=== PATIENT | female | born 1945 | race Caucasian/White ===

== ENCOUNTER 2024-11-19 09:21 | Outpatient (AMB) | payer MEDICARE, SELFPAY ==
[2024-11-19 09:30] VITALS: BP 130/52; PULSE 119; O2SAT 95; BMI 20.2
--- NOTE | 2024-11-19 09:30 | MHC.OFFVIS ---
Vital Signs 11/19/24 09:30 Height 5 ft 1 in Weight 106 lb 14.787 oz BMI 20.2 BP 130/52 L Blood Pressure Location Lt brachial Position Sitting Pulse 119 H Pulse Source Pulse Oximeter Pulse Oximetry (%) 95 Oxygen Delivery Method Room Air Intake Visit Reasons: Cough Intake Note: chronic cough since summer. 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 Allergies ANTIBIOTICS Adverse Reaction (Mild, Uncoded 11/19/24 09:36) THRUSH Medication List - Last Reconciled 11/19/24 by Jem Perrin MD acetaminophen (Tylenol Extra Strength) 500 mg PO Q6H PRN acyclovir 400 mg PO BID albuterol sulfate 90 mcg/actuation 2 puffs inhalation Q6H PRN amiloride-hydrochlorothiazide 5-50 mg 1 tab PO DAILY calcium carbonate-vitamin D3 600 mg-10 mcg (400 unit) (Calcium 600 with Vitamin D3) tabs PO clopidogrel (Plavix) 75 mg PO DAILY cyanocobalamin (vitamin B-12) 1,000 mcg PO DAILY denosumab (Prolia) 60 mg subcut [id number] diclofenac sodium 1% (Arthritis Pain (diclofenac)) 2 grams topical QID estradiol 0.01%(0.1mg/gram) vaginal fluticasone propionate 50 mcg/actuation 1 spray intranasal BID indapamide 1.25 mg PO QAM meclizine 12.5 mg PO BID-QID PRN pantoprazole 40 mg PO DAILY pravastatin 10 mg PO BEDTIME vedolizumab (Entyvio) 300 mg IV Q6W Do you need a note to return to daycare/school/sports/work: No HPI HPI Cough: Details: This 79 years old female of a thin build, is here today for the 1st time, with chief complaint of ongoing cough since the summer months of 2023. She gives history of postnasal discharge/drip almost on a daily basis for the past many years. She does not have runny nose but mostly is in the form of postnasal discharge. She does have occasional bouts of headache, but denies any periods of pain or discomfort over the maxillary areas. She started having cough in the summer of 2023, most likely in May, and started coughing up yellowish phlegm. She was seen in an urgent care clinic 1 time and also had to go to the emergency room in May or June of last. She was treated with, courses of antibiotics, including Z-Zoltan, Augmentin, and also doxycycline, without much improvement She was started on Breo inhaler and also albuterol . With the use of Breo she developed to oral ulcers and thus Breo was stopped. With the use of albuterol she gets actually more cough but it makes it easy to expectorate some phlegm. For happy attention she was being treated with atenolol, later on changed to carvedilol , along with amiloride-high row chlorthalidone. When carvedilol was decreased to half tablet b.i.d., she states that her cough did improve by about 50%, but it never went away. She has been using Flonase nasal spray, without any benefit. Patient has not been on any Gavin inhibitor . Patient does have longstanding history of GERD symptoms, but it remains well controlled with use of pantoprazole 40 mg daily. Patient has had no history of exposure to any one with TB. She is nonsmoker But she does have history of exposure to secondhand smoking from her father. Her cough is almost on a daily basis and sometimes wakes her up from the sleep, With the use of albuterol it is slightly decreased and also it makes it easy for her to expectorates. [facility] Medical History Sinusitis Cough Social History Patient Tobacco Use Status: Never used Tobacco Review of Systems Const All systems reviewed & are unremarkable except as noted in HPI and below Eyes Reports no additional complaints ENT Reports nasal discharge (CHRONIC ) Card Denies chest pain, Reports rapid heart rate and Denies leg edema Resp Reports as per HPI GI Reports heartburn (CHRONIC GERD SYMPTOMS) Reports no additional complaints Musc Reports no additional complaints Skin/Breast Reports system reviewed and no additional complaints, except as documented Neuro Reports no additional complaints Psych Reports no additional complaints Endo Reports no additional complaints Jerry/Lymph Reports no additional complaints Physical Exam Vital Signs: Last Vital Signs Pulse 119 H 11/19/24 09:30 BP 130/52 L 11/19/24 09:30 Pulse Ox 95 11/19/24 09:30 Oxygen Delivery Method Room Air 11/19/24 09:30 BMI result Body Mass Index 20.2 Const Other: PATIENT IS OF A THIN BUILD OTHERWISE HEALTHY LOOKING. HAD CONTINUED AND FREQUENT BOUTS OF COUGH DURING OFFICE VISIT. General: healthy appearing, comfortable, no acute distress, alert and awake Orientation/consciousness: patient oriented x3 HEENT Head: Yes normal to inspection General nose exam: No nasal polyps present and No nasal discharge present Face and sinus: Yes sinuses nontender Mouth: oropharynx normal Throat: Yes posterior oropharynx normal Eyes General: appearance normal, both eyes and all related structures Neck Neck: Yes normal visual inspection, Yes no lymphadenopathy, Yes trachea midline and Yes no JVD Thyroid: Thyroid normal Chest Chest palpation & inspection: normal inspection of the chest, normal palpation of entire chest wall and no tenderness Resp Other: PERCUSSION NOTE IS RESONANT. BREATH SOUNDS ARE ONLY SLIGHTLY DISTANT BUT. EQUAL ON BOTH SIDES THERE WERE NO CREPITATIONS OR WHEEZES. A FEW INSPIRATORY RHONCHI OVER THE LEFT BASE WERE HEARD. DURING AUSCULTATION SHE CONTINUE TO HAVE FREQUENT COUGH. Cardio Palpation: normal PMI Rate: regular rate Rhythm: regular rhythm Heart sounds: no gallops and no murmurs Peripheral pulses: Peripheral pulses 2+ throughout GI Palpation (GI): Soft to palpation, nontender, No hepatosplenomegaly present and no masses Auscultation: normal bowel sounds Back/Spine/Pelvis Thoracic/Lumbar Spine: thoracic and lumbar spine normal to inspection Skin General skin exam: no rashes or lesions noted Neuro General: patient oriented x3 and no focal motor deficits Cranial nerves: Yes CN's II-XII intact bilaterally Extrem General: Yes normal to inspection, Yes no clubbing, cyanosis or edema and Yes no calf tenderness Psych Appearance: grossly normal and well kempt Speech and movement: Normal speech and movement present Results Reviewed Results Reviewed: CT SCAN OF THE CHEST 10/18/2024 AT [facility]. Shows scattered bilateral calcified granulomas measuring up to 3 mm in the left upper lobe and increased 6 mm sub pleural nodule in the lateral aspect of left lung base. A new 6 mm subpleural nodule in the lingular segment of the left upper lobe. Bibasilar atelectasis, minimal. No evidence of pulmonary emphysema, bronchiectasis or pulmonary fibrosis. PULMONARY FUNCTION TEST AT [facility], 11/13/2024 There was no evidence of obstructive airway disorder. And no evidence of restrictive lung disorder. DLCO slightly decreased but almost normal when adjusted for hemoglobin 11.1 Assessment & Plan Assessment & Plan (1) Cough: Comment: Her cough has become chronic, may have been aggravated due to nonspecific infection back in summer of 2023. All possible etiologic factors were considered and ruled out except: Chronic postnasal discharge, and possible low-grade chronic sinusitis. 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 As per CT scan of the chest there is no evidence of any chronic intrinsic lung disease. Code(s): R05.9 - Cough, unspecified Category: Medical Plan: Had a good discussion with patient and explained to her all these factors. At this point I would like to do : COMPLETE CBC WITH DIFF. SPOT TEST FOR LATENT TUBERCULOSIS ( this is mainly because patient has a question about that) Sputum Gram stain and culture. FOR TREATMENT : MAY CONTINUE TO USE ALBUTEROL 1 OR 2 PUFFS Q 6 HOURS P.R.N. FOR PERSISTENT BOUTS OF COUGH. AFTER THE SPUTUM GRAM STAIN AND CULTURE SPECIMEN IS OBTAINED I WOULD START HER ON DOXYCYCLINE 100 B.I.D. FOR ABOUT 2 WEEKS . SHE MAY USE MUCINEX OR ROBITUSSIN 400 MG B.I.D. ( OTC ) (2) Sinusitis: Comment: CLINICALLY PATIENT DENIES ANY SINUS PAIN OR DISCOMFORT, THE PATTERN OF HER ONGOING POSTNASAL DISCHARGE AND FREQUENT COUGH WITH EXPECTORATION, SUGGEST THAT SHE MAY HAVE CHRONIC LOW-GRADE SINUSITIS. Code(s): J32.9 - Chronic sinusitis, unspecified Category: Medical Plan: X-RAY OF THE SINUSES ORDERED. NOTED ABOVE I WOULD START HER ON DOXYCYCLINE 100 B.I.D. FOR ABOUT 2 WEEKS, EMPIRICALLY. Orders: Orders XR sinus <3V Today J32.9 - Chronic sinusitis, unspecified, R05.9 - Cough, unspecified T Spot TB Today J32.9 - Chronic sinusitis, unspecified, R05.9 - Cough, unspecified Complete Blood Count Auto Diff Today J32.9 - Chronic sinusitis, unspecified, R05.9 - Cough, unspecified Sputum Cult + Gram stain Today J32.9 - Chronic sinusitis, unspecified, R05.9 - Cough, unspecified Coding Level of Care Code New Pt Level 4 (79493) Diagnoses Cough R05.9 Sinusitis J32.9
--- OUTSIDE RECORDS SUMMARY | 2024-11-19 09:46 | XMS_ITS | Continuity of Care Document ---
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 Name Role Phone Anaya Joanna DEL TORO Primary Care Physician Encounter [facility] ACCT R [id number] Date(s): 09/19/24 - 10/19/24 [facility] Adult [address] [place] [address]- Encounter Type: Triage Allergies, Adverse Reactions, Alerts Substance Criticality Severity Reaction Reaction Severity Status clonidine Shaking Active penicillin Thrush Active nortriptyline bad dreams Activ e Remicade hands swollen, painful, tinging Active Fosamax Ineffective tuyet g action Active metoprolol Resolved spironolactone diarrhea Activ e trazodone Unknown body region Active lisinopril Unknown body region Active losartan dizzy Active topiramate Unknown body region Active Remeron Dizzy Active Duloxetine 1 Unknown body region Active traMADol Unknown body region Active 1dizziness Immunizations Given and Recorded Vaccine Date Status Refusal Reason influenza virus vaccine, inactivated 09/09/24 Angel Luis rded influenza virus vaccine, inactivated 1 07/07/23 Gi clyde influenza virus vaccine, inactivated 08/01/22 Angel Luis rded influenza virus vaccine, inactivated 07/30/21 Angel Luis rded influenza virus vaccine, inactivated 07/12/18 Give n influenza virus vaccine, inactivated 2 07/04/17 Re corded influenza virus vaccine, inactivated 08/20/16 Give n influenza virus vaccine, inactivated 07/24/15 Give n influenza virus vaccine, inactivated 3/9/15 Give n influenza virus vaccine, inactivated 08/15/14 Angel Luis rded influenza virus vaccine, inactivated 3 07/10/14 Gi clyde influenza virus vaccine, inactivated 07/09/13 Give n influenza virus vaccine, inactivated 06/25/11 Give n SARS-CoV-2(COVID-19)mRNA-LNP vac([id number]) 09/09/24 Recorded SARS-CoV-2(COVID-19)mRNA-LNP vac([id number]) 09/21/23 Recorded pneumococcal 20-valent conjugate vaccine 4 05/06/23 Given tetanus/diphtheria/pertussis, acel(Tdap) 12/12/22 Given [id number] 12y+ bivalent booster vax 08/01/22 Recorded SARS-CoV-2 mRNA ([id number]) vax 03/09/22 Recorded SARS-CoV-2 (COVID-19) mRNA BNT-162b2 vac 07/16/21 Recorded SARS-CoV-2 (COVID-19) mRNA BNT-162b2 vac 12/15/20 Given SARS-CoV-2 (COVID-19) mRNA BNT-162b2 vac 12/15/20 Recorded SARS-CoV-2 (COVID-19) mRNA BNT-162b2 vac 11/24/20 Recorded Influenza Virus Vaccine (oldterm) 06/19/20 Recorde d zoster vaccine, inactivated 02/22/19 Recorded zoster vaccine, inactivated 5 10/19/18 Recorded hepatitis B adult vaccine 04/26/17 Given hepatitis B adult vaccine 04/26/17 Given hepatitis B adult vaccine 12/07/16 Given hepatitis B adult vaccine 6 11/04/16 Given hepatitis B adult vaccine 7 11/04/16 Given hepatitis B adult vaccine 09/21/16 Given hepatitis B adult vaccine 04/21/16 Given hepatitis B adult vaccine 03/24/16 Given Hepatitis A Adult Vaccine 09/21/16 Given Hepatitis A Adult Vaccine 03/24/16 Given pneumococcal 13-valent vaccine 8 12/23/14 Recorded Zostavax (oldterm) 9 07/16/13 Given Tet/Diphth/Acel, Pertussis (oldterm) 04/30/13 Give n Fluarix (oldterm) 08/02/12 Given FluLaval (oldterm) 10 08/17/10 Given Influenza Inactive (IM) (oldterm) 07/01/09 Given Influenza Inactive (IM) (oldterm) 08/27/08 Given Pneumococcal Vaccine (oldterm) 05/25/07 Given tetanus-diphtheria toxoids (Td) 11 02/14/07 Given Tetanus Toxoid Vaccine (oldterm) 10/17/96 Given 1Result Comment: [id number] 2Result Comment: [07/11/2017] makenna leahy 3Result Comment: [07/11/2014] [facility] 4Result Comment: [id number] 5Location History: [address] [phone] 6Result Comment: [11/04/2016] DOUBLE DOSE PER GI 7Result Comment: [11/04/2016] DOUBLE DOSE PER GI 8Result Comment: [03/07/2015] received here 9Admin Note: [facility] 9- 10Admin Note: pt states administered at [facility] 11Admin Note: historical data Medications acetaminophen 325 mg oral capsule 2 capsule = 650 mg, By Mouth, 3 times a day, # 90 capsule, 4 Refills, Maintenance, 01/02/20 1:39:00 PM EDT, [facility], 157.48, cm, 12/17/19 13:10:00 EST, Height, 53.5, kg, 02/02/19 14:21:00 EDT, Dry Weight Start Date: 01/02/20 Status: Ordered Quantity: 90.0 Unit: capsule Repeat number: 5 Acyclovir 400 mg, By Mouth, 2 times a day, Maintenance, 03/04/21 1:16:00 PM EDT Start Date: 03/04/21 Status: Ordered Repeat number: 1 aMILoride 5 mg oral tablet 1 tablet, By Mouth, Daily, # 90 tablet, 1 Refills, Maintenance, 09/19/24 2:44:00 PM EST, [facility], 155, cm, 07/23/24 10:04:00 EDT, Height, 49.7, kg, 08/11/24 12:45:00 EDT, Dry Weight Start Date: 09/19/24 Status: Ordered Quantity: 90.0 Unit: tablet Repeat number: 2 Breo Ellipta 100 mcg-25 mcg/inh inhalation powder 1 inhalation, Inhalation, Daily, for 30 days, at the same time every day, # 1 each, 0 Refills, Acute 10/31/24 10:42:00 AM EST, 10/01/24 10:42:00 AM EST, Powder, [id number], =, 1 inhalation Inhalation Daily,x30 days,Instr:at the same time every day, 155, cm, 10/01/24 10:44:00 EST, Height, 50.1, kg, 09/22/24 12:51:00 EST, Dry Weight Start Date: 10/01/24 Stop Date: 10/31/24 Status: Ordered Quantity: 1.0 Unit: each Repeat number: 1 Calcium / Vitamin D Combo Tablet 1 tablet, By Mouth, 2 times a day, 0 Refills, 12/13/05 2:17:58 PM EST Start Date: 12/13/05 Status: Ordered Repeat number: 1 carvedilol 12.5 mg oral tablet 12.5 mg, 1, tablet, By Mouth, 2 times a day, # 180 tablet, Refills 0, Tot. Refills 0, Maintenance, 10/05/24 12:21:00 PM EST, Route to Pharmacy Electronically, [facility], Partial fill upon patient request if the prescription is for a schedule II opioid drug., 155, cm, 10/01/24 10:44:00 EST, Height, 50.1, kg, 09/22/24 12:51:00 EST, Dry Weight Start Date: 10/05/24 Status: Ordered Quantity: 180.0 Unit: tablet Repeat number: 1 [facility] By Mouth, Daily, 0 Refills, Maintenance, 06/15/24 2:14:00 PM EDT, Partial fill upon patient request if the prescription is for a schedule II opioid drug. Start Date: 06/15/24 Status: Ordered Repeat number: 1 clopidogrel 75 mg oral tablet 1, tablet, By Mouth, Daily, # 90 tablet, Refills 0, Tot. Refills 0, Maintenance, 10/15/24 5:37:00 PM EST, Route to Pharmacy Electronically, [facility], 155, cm, 10/09/24 10:20:00 EST, Height, 50.1, kg, 09/22/24 12:51:00 EST, Dry Weight Start Date: 10/15/24 Status: Ordered Quantity: 90.0 Unit: tablet Repeat number: 1 diclofenac 1% topical gel 1 application, Topically, 4 times a day, PRN Pain , Mild, not to exceed 8 grams/day/single joint ofupper extremities, # 100 Gm, 0 Refills, Maintenance, 12/31/21 11:50:00 AM EDT, Gel, [facility], Partial fill upon patient request if the prescription is for a schedule II opioid drug., 155, cm, 12/31/21 10:53:00 EDT, Height, 42, kg, 09/03/21 12:56:00 EST, Dry Weight Start Date: 12/31/21 Status: Ordered Quantity: 100.0 Unit: g Repeat number: 1 Entyvio = 300 mg, IV Infusion, Every 6 weeks, 0 Refills, Maintenance, 01/09/18 11:14:40 AM EDT Start Date: 01/09/18 Status: Ordered Repeat number: 1 estradiol 0.1 mg/g vaginal cream = 1 Gm, Vaginally, Daily at bedtime, take every night for two weeks then twice weekly, # 42.5 Gm, 11 Refills, Maintenance, 11/29/23 12:24:00 PM EST, [facility], Partial fill upon patient request if the prescription is for a schedule II opioid drug., 155, cm, 11/18/23 10:45:00 EST, Height, 53.7, kg, 10/22/23 13:12:00 EST, Dry Weight Start Date: 11/29/23 Status: Ordered Quantity: 42.5 Unit: g Repeat number: 12 Flonase Allergy Relief 50 mcg/inh nasal spray 1 sprays = 50 mcg, Nares, Both, 2 times a day, shake well before using, # 16 Gm, 1 Refills, Maintenance, 10/01/24 10:38:00 AM EST, [place], [id number], 155, cm, 10/01/24 10:24:00 EST, Height, 50.1, kg, 09/22/24 12:51:00 EST, Dry Weight Start Date: 10/01/24 Stop Date: 11/30/24 Status: Ordered Quantity: 16.0 Unit: g Repeat number: 2 Imodium A-D 2 mg oral tablet 1 tablet = 2 mg, By Mouth, Every 4 hours, PRN Diarrhea, 0 Refills, Maintenance, 12/31/15 1:03:36 PM EDT Start Date: 12/31/15 Status: Ordered Repeat number: 1 indapamide 1.25 mg oral tablet 1 tablet, By Mouth, Daily in AM, # 90 tablet, 0 Refills, Maintenance, 10/01/24 8:50:00 AM EST, [facility], 155, cm, 07/23/24 10:04:00 EDT, Height, 50.1, kg, 09/22/24 12:51:00 EST, Dry Weight Start Date: 10/01/24 Status: Ordered Quantity: 90.0 Unit: tablet Repeat number: 1 pantoprazole 40 mg oral delayed release tablet 1 tablet = 40 mg, By Mouth, Daily, # 90 tablet, 3 Refills, Maintenance, 01/18/24 2:10:00 PM EDT, 155,cm, 01/18/24 13:30:00 EDT, Height, 52.8, kg, 01/14/24 12:56:00 EDT, Dry Weight Start Date: 01/18/24 Stop Date: 01/12/25 Status: Ordered Quantity: 90.0 Unit: tablet Repeat number: 4 pravastatin 10 mg oral tablet 1 tablet, By Mouth, Daily at bedtime, # 90 tablet, 1 Refills, Maintenance, 08/12/24 12:25:00 PM EDT, [facility], 155, cm, 07/23/24 10:04:00 EDT, Height, 49.7, kg, 08/11/24 12:45:00 EDT, Dry Weight Start Date: 08/12/24 Status: Ordered Quantity: 90.0 Unit: tablet Repeat number: 1 prednisolone ophthalmic acetate 1% suspension 1 drops, Eyes, Both, Daily, # 5 mL, 0 Refills, Maintenance, 08/17/21 2:36:00 PM EDT, Ophth Suspension, Partial fill upon patient request if the prescription is for a schedule II opioid drug. Start Date: 08/17/21 Stop Date: 08/27/21 Status: Ordered Quantity: 5.0 Unit: mL Repeat number: 1 Prolia 60 mg/mL subcutaneous solution 1 mL = 60 mg, Subcutaneous Injection, Every 6 months, # 1 mL, 0 Refills, Maintenance, 10/23/19 1:28:00 PM EST, Solution Start Date: 10/23/19 Status: Ordered Quantity: 1.0 Unit: mL Repeat number: 1 Vitamin B12 1000 mcg oral tablet 1 tablet = 1,000 mcg, By Mouth, Daily, # 90 tablet, 1 Refills, Maintenance, 02/29/24 12:41:00 PM EDT, [facility], 155, cm, 02/25/24 14:25:00 EDT, Height, 53.7, kg, 02/25/24 12:50:00 EDT, Dry Weight Start Date: 02/29/24 Stop Date: 08/27/24 Status: Ordered Quantity: 90.0 Unit: tablet Repeat number: 2 Problem List Condition Confirmation Course Effective Dates Status H ealth Status Informant Dry mouth 1 Confirmed Active Atrophic vaginitis Confirmed Active Benign esophageal stricture Confirmed 03/25/18 Active Benign Essential Hypertension Confirmed Active Bilateral hearing loss Confirmed 07/08/21 Active CTS (carpal tunnel syndrome) Confirmed Active 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;multilevel Confirmed 03/17/19 Active Occipital neuralgia Confirmed Active Chronic renal impairment, stage 3 (moderate) Confirmed Active Crohn's disease of colon Confirmed Active Female bladder prolapse Confirmed Active Eczema Confirmed Active Lymphocytic esophagitis egd 2019 Confirmed Active GERD without esophagitis EGD ;dilated Confirmed Active H/O compression fracture of spine- L4 Confirmed Active History of basal cell carcinoma (BCC) excision Confirmed Active Hx of amaurosis fugax 2, 3, 4, 5 Confirmed 07/12/08 Active Hyperlipidemia Confirmed Active Impaired Fasting Glucose 6 Confirmed Active Irritable bowel syndrome Confirmed Active Schatzki's ring dilated Confirmed 05/15/20 Active Microscopic Hematuria 7, 8 Confirmed Active Ocular migraine Confirmed Active OP (osteoporosis) denosumab +dexa 2019 9, 10, 11, 12, 13, 14 Confirmed Active Overactive bladder Confirmed Active Recurrent UTI (urinary tract infection) 15, 16 Confirmed Active Rosacea Confirmed Active Urethritis Confirmed Active Vertigo Confirmed Active 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/22 Active Vitamin B12 deficiency (non anemic) Confirmed Active 1per ENT;nystatin 2neg lupus anticoagulant/antiphopholipid and anticardiolipin antibodies 3Echocardiogram nad 4CT angio barin;done 5normal carotids; LDL 90, refuises MRI,mRA brain; I advised she cannot do 6ADVISED PRE DIABETIC 7seeing DR Tatum; cytology, ultrasound renal 8full workup 9recalst aug 2015 10per rheumatology FReclast 11Recheck parathyroid hormone level consider Prolia if PTH is normal 12Normal SPEP and thyroid 13refuses prolia,other RX aware risks 14seeing rhuematlogy re ,rx 15no testing,prn bactrim 16seeing DR Romero,evaluating Social History Social History Type Response Smoking Status Never smoker; Tobacc o user in household: Yes entered on: 08/21/14 Sex Female Sex Representation Female (finding) Patient Care team information Care Team Personnel Name: Celestina King RN Position: [facility] RN Member Role: Primary Care Nurse Name: Joanna Julien NP Position: [facility] PCO Associate Professional Member Role: PCP Address: [address] [place] [id number] Telecom: Name: Michelle Cline RN Position: [facility] MR W/ Merge Member Role: Primary Care Nurse Name: Susan Ventura RN Position: [facility] Onco RN Member Role: Primary Care Nurse Name: Lindsey Fletcher RN Position: [facility] RN Member Role: Primary Care Nurse Name: Lianet Mcfadden RN Position: [facility] AMB Nurse Member Role: Primary Care Nurse Name: Kenny Quinonez RN Position: [facility] RN Member Role: Primary Care Nurse Care Team Related Persons Name: SHAILESH DAMICO Name: CONCETTA PUENTES Name: RHEA PUENTES Insurance Providers Guarantor name: MAXIME PUENTES Health Plan Information #: 1 Payer: MEDICARE PART B OUTPT Member Number: NA Policy Number: NA Group Number: NA Health Plan Information #: 2 Payer: [employer] SUP Member Number: NA Policy Number: NA Group Number: NA
--- OUTSIDE RECORDS SUMMARY | 2024-11-19 09:46 | XMS_ITS | Continuity of Care Document ---
Author Organization [facility] Address [address] [place] [address]- [facility] Name Relationship Address Phone ENIO PUENTESINE Personal Relationship Unknown Yolis vailable DEPREY, SHAILESH child Unknown Unavailable DELORIS, RHEA child Unknown Unavailable DELORIS, CONCETTA Personal Relationship Unknown Unav ailable DELORIS, MAXIME Personal Relationship Unknown Yolis vailable DELORIS, MAXIME Personal Relationship Unknown Yolis vailable DELORIS, CONCETTA spouse Unknown Unavailable DELORIS, MAXIME Personal Relationship Unknown Yolis vailable Care Team Providers Care Fish Flipper Name Role Phone Anaya FUR TAILOR, Joanna Lafleur Primary Care Physician [place] [facility] [place] - 10/[place]/24 [facility] [address] [place] [address]- Encounter Type: Triage Allergies, Adverse Reactions, Alerts Substance Criticality Severity Reaction Reaction Severity Status clonidine Shaking Active Fosamax Ineffective tuyet g action Active Remeron Dizzy Active penicillin Thrush Active metoprolol Resolved nortriptyline bad dreams Activ e spironolactone diarrhea Activ e trazodone Unknown body region Active lisinopril Unknown body region Active losartan dizzy Active topiramate Unknown body region Active Remicade hands swollen, painful, tinging Active Duloxetine 1 Unknown body region Active [...] 07/24/15 Give n influenza virus vaccine, inactivated 12/23/14 Give n influenza virus vaccine, inactivated 08/15/14 Angel Luis rded influenza virus vaccine, inactivated 3 07/10/14 Gi clyde influenza virus vaccine, inactivated 07/09/13 Give n influenza virus vaccine, inactivated 06/25/11 Give n SARS-CoV-2(COVID-19)mRNA-LNP vac(xjl112) 09/09/24 Recorded SARS-CoV-2(COVID-19)mRNA-LNP vac(yoh184) 09/21/23 Recorded pneumococcal 20-valent conjugate vaccine 4 05/06/23 Given tetanus/diphtheria/pertussis, acel(Tdap) 12/12/22 Given [id number]-MkV-7mSTI 12y+ bivalent booster vax 08/01/22 Recorded SARS-CoV-2 mRNA (tcejsqk-mdwg-rtuon) vax 03/09/22 Recorded SARS-CoV-2 (COVID-19) mRNA BNT-162b2 [...] (oldterm) 07/01/09 Given Influenza Inactive (IM) (oldterm) 11/11/08 Given Pneumococcal Vaccine (oldterm) 05/25/07 Given tetanus-diphtheria toxoids (Td) 11 02/14/07 Given Tetanus Toxoid Vaccine (oldterm) 10/17/96 Given 1Result Comment: [id number] 2Result Comment: [07/11/2017] makenna leahy 3Result Comment: [07/11/2014] [facility] 4Result Comment: [id number] 5Location History: [address] [phone] 6Result Comment: [11/04/2016] DOUBLE DOSE PER GI 7Result Comment: [11/04/2016] DOUBLE DOSE PER GI 8Result Comment: [03/07/2015] received here 9Admin Note: IRIS-RFID 07-13-13 10Admin Note: pt states administered at sham 11Admin Note: historical data Medications acetaminophen 325 mg oral capsule 2 capsule = 650 mg, By Mouth, 3 times a day, # 90 capsule, 4 Refills, Maintenance, 01/02/20 1:39:00 PM EDT, [facility], 157.48, cm, 12/17/19 13:10:00 EST, [...] AM EST, 10/01/24 10:42:00 AM EST, [place], [facility][id number], =, 1 inhalation Inhalation Daily,x30 days,Instr:at the [...] 1 Refills, Maintenance, 10/01/24 10:38:00 AM EST, [place], [facility] #[id number], 155, cm, 10/01/24 10:24:00 EST, Height, 50.1, [...] Team Personnel Name: Celestina King RN Position: [facility] RN Member Role: Primary Care Nurse Name: Anaya FUR TAILORJoanna Position: [facility] PCO Associate Professional Member Role: PCP Address: [address] [place] [address] Telecom: Name: Michelle Cline RN Position: [facility] MR W/ Merge Member Role: Primary Care Nurse Name: Susan Ventura RN Position: [facility] Onco RN Member Role: Primary Care Nurse Name: Lindsey Fletcher RN Position: [facility] RN Member Role: Primary Care Nurse Name: Lianet Mcfadden RN Position: [facility] AMB Nurse Member Role: Primary Care Nurse Name: Kenny Quinonez RN Position: [facility] RN Member Role: Primary Care Nurse Care Team Related Persons Name: SHAILESH DAMICO Name: CONCETTA PUENTES Name: RHEA PUENTES Insurance Providers Guarantor name: MAXIME PUENTES Health Plan Information #: 1 Payer: MEDICARE PART B OUTPT Member Number: NA Policy Number: NA Group Number: NA Health Plan Information #: 2 Payer: [facility] Member Number: NA Policy Number: NA Group Number: NA
--- OUTSIDE RECORDS SUMMARY | 2024-11-19 09:46 | XMS_ITS | Continuity of Care Document ---
Author Organization [facility] Rashi lt Address [address] [place] [address]- Care Team Providers Care Clamp Operator Name Role Phone Anaya Joanna DEL TORO Primary Care Physician [phone] Encounter [facility] [place] Date(s): 10/05/24 - 11/04/24 [facility] Adult [address] [place] [address]- Encounter Type: Triage Allergies, Adverse Reactions, Alerts Substance Criticality Severity Reaction Reaction Severity Status clonidine Shaking Active penicillin Thrush Active metoprolol Resolved nortriptyline bad dreams Activ e spironolactone diarrhea Activ e trazodone Unknown body region Active lisinopril Unknown body region Active losartan dizzy Active topiramate Unknown body region Active Remicade hands swollen, painful, tinging Active Fosamax Ineffective tuyet g action Active Remeron Dizzy Active Duloxetine 1 Unknown body region Active traMADol Unknown body region Active 1dizziness Immunizations Given and Recorded Vaccine Date Status Refusal Reason RSV vaccine preF3, recombinant 09/28/24 Recorded influenza virus vaccine, inactivated 09/09/24 Angel Luis [...] virus vaccine, inactivated 06/25/11 Give n SARS-CoV-2(COVID-19)mRNA-LNP vac(gjv351) 09/09/24 Recorded SARS-CoV-2(COVID-19)mRNA-LNP vac(ndt537) 09/21/23 Recorded pneumococcal 20-valent conjugate vaccine 4 05/06/23 Given tetanus/diphtheria/pertussis, acel(Tdap) 12/12/22 Given JEMU-ZaX-7sRAY 12y+ bivalent booster vax 08/01/22 Recorded SARS-CoV-2 mRNA (ictncgw-yhmq-kzgda) vax 03/09/22 Recorded SARS-CoV-2 (COVID-19) mRNA BNT-162b2 [...] Toxoid Vaccine (oldterm) 10/17/96 Given 1Result Comment: [id number] 2Result Comment: [07/11/2017] makenna leahy 3Result Comment: [07/11/2014] [facility] 4Result Comment: [id number] 5Location History: [address] [phone] 6Result Comment: [11/04/2016] DOUBLE DOSE PER GI 7Result Comment: [11/04/2016] DOUBLE DOSE PER GI 8Result Comment: [03/07/2015] received here 9Admin Note: [facility] 9-- 10Admin Note: pt states administered at sham 11Admin Note: historical data Medications acetaminophen 325 mg oral capsule 2 capsule = 650 mg, By Mouth, 3 times a day, # 90 capsule, 4 Refills, Maintenance, 01/02/20 1:39:00 PM EDT, [facility] #[facility], 157.48, cm, 12/17/19 13:10:00 EST, Height, 53.5, kg, 02/02/19 14:21:00 EDT, Dry Weight Start Date: 01/02/20 Status: Ordered Quantity: 90.0 Unit: capsule Repeat number: 5 Acyclovir 400 mg, By Mouth, 2 times a day, Maintenance, 03/04/21 1:16:00 PM EDT Start Date: 03/04/21 Status: Ordered Repeat number: 1 Albuterol (Eqv-ProAir HFA) 90 mcg/inh inhalation aerosol 2 puffs, Inhalation, Every 6 hours, PRN wheezing cough, # 18 Gm, 0 Refills, Maintenance, 10/24/24 8:57:00 AM EST, [facility] #[id number], 2 puffs Inhalation Every 6 hours,PRN:wheezing cough, 155, cm, 10/09/24 10:20:00 EST, Height, 50.1, kg, 09/22/24 12:51:00 EST, Dry Weight Start Date: 10/24/24 Status: Ordered Quantity: 18.0 Unit: g Repeat number: 1 aMILoride 5 mg oral tablet 1 tablet, By Mouth, Daily, # 90 tablet, 1 Refills, Maintenance, 09/19/24 2:44:00 PM EST, [facility], 155, cm, 07/23/24 10:04:00 EDT, Height, 49.7, kg, 08/11/24 12:45:00 EDT, Dry Weight Start Date: 09/19/24 Status: Ordered Quantity: 90.0 Unit: tablet Repeat number: 2 Calcium / Vitamin D Combo Tablet 1 tablet, By Mouth, 2 times a day, 0 Refills, 12/13/05 2:17:58 PM EST Start Date: 12/13/05 Status: Ordered Repeat number: 1 [facility] By Mouth, [...] 1 Refills, Maintenance, 10/01/24 10:38:00 AM EST, [place], [facility] #[id number], 155, cm, 10/01/24 10:24:00 EST, Height, 50.1, [...] 03/17/19 Active Occipital neuralgia Confirmed Active Chronic cough Confirmed Active Chronic renal impairment, stage 3 [...] Team Personnel Name: Celestina King RN Position: [facility] RN Member Role: Primary Care Nurse Name: Joanna Julien NP Position: [facility] PCO Associate Professional Member Role: PCP Address: [address] [place] [id number]- Telecom: Name: Michelle Cline RN Position: [facility] MR W/ Merge Member Role: Primary Care Nurse Name: Lorenzo RNSusan Position: [facility] Onco RN Member Role: Primary Care Nurse Name: Lindsey Fletcher RN Position: [facility] RN Member Role: Primary Care Nurse Name: Lianet Mcfadden RN Position: [facility] AMB Nurse Member Role: Primary Care Nurse Name: Kenny Quinonez RN Position: [facility] RN Member Role: Primary Care Nurse [...]
--- OUTSIDE RECORDS SUMMARY | 2024-11-19 09:46 | XMS_ITS | Continuity of Care Document ---
Author Organization [facility]ero n[facility] Address [address], [address] [place] [address]- Care Team Providers Care Diesel Power Mechanic Name Role Phone Anaya REAL ESTATE PHOTOGRAPHER, Joanna Lafleur Primary Care Physician [phone] [facility] [place] Date(s): 09/24/24 - 10/24/24 [facility] [address], [address] [place], [place] [address] Encounter Type: Triage Allergies, Adverse Reactions, Alerts [...] virus vaccine, inactivated 06/25/11 Give n SARS-CoV-2(COVID-19)mRNA-LNP vac(tie407) 09/09/24 Recorded SARS-CoV-2(COVID-19)mRNA-LNP vac(beb949) 09/21/23 Recorded pneumococcal 20-valent conjugate vaccine 4 05/06/23 Given tetanus/diphtheria/pertussis, acel(Tdap) 12/12/22 Given ONVI-LpR-5kSYT 12y+ bivalent booster vax 08/01/22 Recorded SARS-CoV-2 mRNA (gdxhofu-casp-yowjw) vax 03/09/22 Recorded SARS-CoV-2 (COVID-19) mRNA BNT-162b2 [...] Toxoid Vaccine (oldterm) 10/17/96 Given 1Result Comment: [id number] 2Result Comment: [07/11/2017] makenna leahy 3Result Comment: [07/11/2014] [facility] 4Result Comment: [id number] 5Location History: [address] [phone] 6Result Comment: [11/04/2016] DOUBLE DOSE PER GI [...] Maintenance, 01/02/20 1:39:00 PM EDT, [facility] #[facility], 157.48, cm, 12/17/19 13:10:00 EST, [...] 0 Refills, Maintenance, 10/24/24 8:57:00 AM EST, [facility] #[id number], 2 puffs Inhalation Every 6 hours,PRN:wheezing cough, [...] AM EST, 10/01/24 10:42:00 AM EST, [place], [facility] #88863, =, 1 inhalation Inhalation Daily,x30 days,Instr:at the [...] 1 Refills, Maintenance, 10/01/24 10:38:00 AM EST, [place], [facility] #23948, 155, cm, 10/01/24 10:24:00 EST, Height, 50.1, [...] Team Personnel Name: Celestina King RN Position: [facility] RN Member Role: Primary Care Nurse Name: Joanna Julien NP Position: [facility] PCO Associate Professional Member Role: PCP Address: [address] [place] [phone]- Telecom: Name: Michelle Cline RN Position: [facility] MR W/ Merge Member Role: Primary Care Nurse Name: Susan Ventura RN Position: [facility] Onco RN Member Role: Primary Care Nurse Name: Lindsey Fletcher RN Position: [facility] RN Member Role: Primary Care Nurse Name: Lianet Mcfadden RN Position: [facility] AMB Nurse Member Role: Primary Care Nurse Name: Kenny Quinonez RN Position: [facility] RN Member Role: Primary Care Nurse Care Team Related Persons Name: SHAILESH DAMICO Name: CONCETTA PUENTES Name: RHEA PUENTES Insurance Providers Guarantor name: MAXIME PUENTES Health Plan Information #: 1 Payer: MEDICARE PART B OUTPT Member Number: NA Policy Number: NA Group Number: NA Health Plan Information #: 2 Payer: [facility] Member Number: NA Policy Number: NA Group Number: NA
--- OUTSIDE RECORDS SUMMARY | 2024-11-19 09:46 | XMS_ITS | Continuity of Care Document ---
Author Organization [facility] Rashi lt Address [address] [place] [address]- Care Team Providers Care Director Of Social Services Name Role Phone Anaya KATEY, Joanna Lafleur Primary Care Physician [place] [facility] [place] 10/08/24 - 11/07/24 [facility] Adult [address] [place] [address]- Encounter Type: Triage Allergies, Adverse Reactions, Alerts [...] virus vaccine, inactivated 06/25/11 Give n SARS-CoV-2(COVID-19)mRNA-LNP vac(vfv149) 09/09/24 Recorded SARS-CoV-2(COVID-19)mRNA-LNP vac(lmt339) 09/21/23 Recorded pneumococcal 20-valent conjugate vaccine 4 05/06/23 Given tetanus/diphtheria/pertussis, acel(Tdap) 12/12/22 Given JRON-OzA-8yRJH 12y+ bivalent booster vax 08/01/22 Recorded SARS-CoV-2 mRNA (yabsagu-ojnn-osptu) vax 03/09/22 Recorded SARS-CoV-2 (COVID-19) mRNA BNT-162b2 [...] Toxoid Vaccine (oldterm) 10/17/96 Given 1Result Comment: [id number] 2Result Comment: [07/11/2017] makenna leahy 3Result Comment: [07/11/2014] [facility] 4Result Comment: [id number] [phone] 6Result Comment: [11/04/2016] DOUBLE DOSE PER GI 7Result Comment: [11/04/2016] DOUBLE DOSE PER GI 8Result Comment: [03/07/2015] received here 9Admin Note: [facility] 07-13-13 10Admin Note: pt states administered at sham 11Admin Note: historical data Medications acetaminophen 325 mg oral capsule 2 capsule = 650 mg, By Mouth, 3 times a day, # 90 capsule, 4 Refills, Maintenance, 01/02/20 1:39:00 PM EDT, [facility] #[facility], 157.48, cm, 12/17/19 13:10:00 EST, [...] 0 Refills, Maintenance, 10/24/24 8:57:00 AM EST, [facility] #06068, 2 puffs Inhalation Every 6 hours,PRN:wheezing cough, [...] 1 Refills, Maintenance, 10/01/24 10:38:00 AM EST, [place], [facility] #55484, 155, cm, 10/01/24 10:24:00 EST, Height, 50.1, [...] Team Personnel Name: Celestina King RN Position: [facility] RN Member Role: Primary Care Nurse Name: Joanna Julien NP Position: [facility] PCO Associate Professional Member Role: PCP Address: [address] [place] [address]- Telecom: Name: Michelle Cline RN Position: [facility] MR W/ Merge Member Role: Primary Care Nurse Name: Susan Ventura RN Position: [facility] Onco RN Member Role: Primary Care Nurse Name: Lindsey Fletcher RN Position: [facility] RN Member Role: Primary Care Nurse Name: Lianet Mcfadden RN Position: [facility] AMB Nurse Member Role: Primary Care Nurse Name: Kenny Quinonez RN Position: [facility] RN Member Role: Primary Care Nurse [...]
--- OUTSIDE RECORDS SUMMARY | 2024-11-19 09:47 | XMS_ITS | Continuity of Care Document ---
Author Organization [facility] Salguero n[facility] Address [address], [address] [place] [address]- Care Team Providers Care Vp Revenue Cycle Name Role Phone Anaya OUTSOLE MOLDER, Joanna Lafleur Primary Care Physician Encounter [facility] [place] Date(s): 09/24/24 - 10/24/24 [facility] [address], [address] [place], [place] [address] Encounter Type: Triage Allergies, Adverse Reactions, Alerts [...] virus vaccine, inactivated 06/25/11 Give n SARS-CoV-2(COVID-19)mRNA-LNP vac(skr886) 09/09/24 Recorded SARS-CoV-2(COVID-19)mRNA-LNP vac(csg061) 09/21/23 Recorded pneumococcal 20-valent conjugate vaccine 4 05/06/23 Given tetanus/diphtheria/pertussis, acel(Tdap) 12/12/22 Given IQYH-InL-1uBFY 12y+ bivalent booster vax 08/01/22 Recorded SARS-CoV-2 mRNA (amkyqjr-rdtx-ilvsi) vax 03/09/22 Recorded SARS-CoV-2 (COVID-19) mRNA BNT-162b2 [...] Toxoid Vaccine (oldterm) 10/17/96 Given 1Result Comment: [id number] 2Result Comment: [07/11/2017] makenna leahy 3Result Comment: [07/11/2014] [facility] 4Result Comment: [id number] 5Location History: [address] [phone] 6Result Comment: [11/04/2016] DOUBLE DOSE PER GI [...] Maintenance, 01/02/20 1:39:00 PM EDT, [facility] #36, 157.48, cm, 12/17/19 13:10:00 EST, [...] 0 Refills, Maintenance, 10/24/24 8:57:00 AM EST, [facility] #50080, 2 puffs Inhalation Every 6 hours,PRN:wheezing cough, [...] AM EST, 10/01/24 10:42:00 AM EST, [place], [facility] #48557, =, 1 inhalation Inhalation Daily,x30 days,Instr:at the [...] 1 Refills, Maintenance, 10/01/24 10:38:00 AM EST, [place], [facility] #10048, 155, cm, 10/01/24 10:24:00 EST, Height, 50.1, [...] Team Personnel Name: Celestina King RN Position: [facility] RN Member Role: Primary Care Nurse Name: Joanna Julien NP Position: [facility] PCO Associate Professional Member Role: PCP Address: [address] [place] [address]- Telecom: Name: Michelle Cline RN Position: [facility] MR W/ Merge Member Role: Primary Care Nurse Name: Susan Ventura RN Position: [facility] Onco RN Member Role: Primary Care Nurse Name: Lindsey Fletcher RN Position: [facility] RN Member Role: Primary Care Nurse Name: Lianet Mcfadden RN Position: [facility] AMB Nurse Member Role: Primary Care Nurse Name: Kenny Quinonez RN Position: [facility] RN Member Role: Primary Care Nurse Care Team Related Persons Name: SHAILESH DAMICO Name: CONCETTA PUENTES Name: RHEA PUENTES Insurance Providers Guarantor name: MAXIME PUENTES Health Plan Information #: 1 Payer: MEDICARE PART B OUTPT Member Number: NA Policy Number: NA Group Number: NA Health Plan Information #: 2 Payer: [facility] Member Number: NA Policy Number: NA Group Number: NA
--- OUTSIDE RECORDS SUMMARY | 2024-11-19 09:47 | XMS_ITS | Continuity of Care Document ---
Author Organization [facility]ero [facility] Address [address] [place] [address], [address] [place] [address]- Care Team Providers Care Dialysis Clinical Manager Name Role Phone Anaya PLEATER HAND, Joanna Lafleur Primary Care Physician En[place] [facility] [place] Date(s): 09/24/24 - 10/24/24 [facility] [address] [place], [place] [address] Attending Physician: Stephania Auguste Admitting Physician: Stephania Auguste Referring Physician: Stephania Auguste Encounter Type: Triage Allergies, Adverse Reactions, Alerts Substance Criticality Severity Reaction Reaction Severity Status clonidine Shaking Active nortriptyline bad dreams Activ e lisinopril Unknown body region Active topiramate Unknown body region Active Remicade hands swollen, painful, tinging Active Fosamax Ineffective tuyet g action Active Remeron Dizzy Active penicillin Thrush Active metoprolol Resolved spironolactone diarrhea Activ e trazodone Unknown body region Active losartan dizzy Active Duloxetine 1 Unknown body region Active [...] virus vaccine, inactivated 06/25/11 Give n SARS-CoV-2(COVID-19)mRNA-LNP vac(fwl837) 09/09/24 Recorded SARS-CoV-2(COVID-19)mRNA-LNP vac(ykf400) 09/21/23 Recorded pneumococcal 20-valent conjugate vaccine 4 05/06/23 Given tetanus/diphtheria/pertussis, acel(Tdap) 12/12/22 Given JMWG-UqW-8jJLY 12y+ bivalent booster vax 08/01/22 Recorded SARS-CoV-2 mRNA (ipvnzbz-pmlg-ldevm) vax 03/09/22 Recorded SARS-CoV-2 (COVID-19) mRNA BNT-162b2 [...] Toxoid Vaccine (oldterm) 10/17/96 Given 1Result Comment: [id number] 2Result Comment: [07/11/2017] makenna leahy 3Result Comment: [07/11/2014] [facility] 4Result Comment: [id number] 5Location History: [address] [phone] 6Result Comment: [11/04/2016] DOUBLE DOSE PER GI 7Result Comment: [11/04/2016] DOUBLE DOSE PER GI 8Result Comment: [03/07/2015] received here 9Admin Note: CYPHER 07-13-13 10Admin Note: pt states administered at sham 11Admin Note: historical data Medications acetaminophen 325 mg oral capsule 2 capsule = 650 mg, By Mouth, 3 times a day, # 90 capsule, 4 Refills, Maintenance, 01/02/20 1:39:00 PM EDT, [facility] #[facility], 157.48, cm, 12/17/19 13:10:00 EST, [...] 0 Refills, Maintenance, 10/24/24 8:57:00 AM EST, [facility] #17796, 2 puffs Inhalation Every 6 hours,PRN:wheezing cough, [...] AM EST, 10/01/24 10:42:00 AM EST, [place], [facility] #26692, =, 1 inhalation Inhalation Daily,x30 days,Instr:at the [...] 1 Refills, Maintenance, 10/01/24 10:38:00 AM EST, [place], [facility] #96071, 155, cm, 10/01/24 10:24:00 EST, Height, 50.1, [...] Team Personnel Name: Celestina King RN Position: [facility] RN Member Role: Primary Care Nurse Name: Joanna Julien NP Position: [facility] PCO Associate Professional Member Role: PCP Address: [address] [place] [phone]- Telecom: Name: Michelle Cline RN Position: [facility] MR W/ Merge Member Role: Primary Care Nurse Name: Susan Ventura RN Position: [facility] Onco RN Member Role: Primary Care Nurse Name: Lindsey Fletcher RN Position: [facility] RN Member Role: Primary Care Nurse Name: Lianet Mcfadden RN Position: [facility] AMB Nurse Member Role: Primary Care Nurse Name: Kenny Quinonez RN Position: [facility] RN Member Role: Primary Care Nurse Care Team Related Persons Name: SHAILESH DAMICO Name: CONCETTA PUENTES Name: RHEA PUENTES Insurance Providers Guarantor name: MAXIME PUENTES Health Plan Information #: 1 Payer: MEDICARE PART B OUTPT Member Number: NA Policy Number: NA Group Number: NA Health Plan Information #: 2 Payer: [facility] SUP Member Number: NA Policy Number: NA Group Number: NA
--- OUTSIDE RECORDS SUMMARY | 2024-11-19 09:47 | XMS_ITS | Continuity of Care Document ---
Author Organization [facility] Rashi lt Address [address] [place] [address]- Care Team Providers Care Stage Producer Name Role Phone Anaya Joanna DEL TORO [id number] - [facility]24 [facility] Adult [address] [place] [address]- Encounter Diagnosis Benign Essential Hypertension(Discharge Diagnosis) - 10/29/24 Chronic renal impairment, stage 3 (moderate)(Discharge Diagnosis) - 10/29/24 Chronic cough(Discharge Diagnosis) - 10/29/24 Attending Physician: Not on Staff, Attending MD Encounter Type: Office Visit Allergies, Adverse Reactions, Alerts Substance Criticality Severity [...] virus vaccine, inactivated 06/25/11 Give n SARS-CoV-2(COVID-19)mRNA-LNP vac(qtz131) 09/09/24 Recorded SARS-CoV-2(COVID-19)mRNA-LNP vac(zlm490) 09/21/23 Recorded pneumococcal 20-valent conjugate vaccine 4 05/06/23 Given tetanus/diphtheria/pertussis, acel(Tdap) 12/12/22 Given [id number]-MzC-7xPSU 12y+ bivalent booster vax 08/01/22 Recorded SARS-CoV-2 mRNA (exbaseh-ertx-jnpix) vax 03/09/22 Recorded SARS-CoV-2 (COVID-19) mRNA BNT-162b2 [...] Toxoid Vaccine (oldterm) 10/17/96 Given 1Result Comment: [id number] 2Result Comment: [07/11/2017] makenna leahy 3Result Comment: [07/11/2014] [employer] [employer] [facility] 4Result Comment: [id number] 5Location History: [facility] [phone] 6Result Comment: [11/04/2016] DOUBLE DOSE PER GI 7Result Comment: [11/04/2016] DOUBLE DOSE PER GI 8Result Comment: [03/07/2015] received here 9Admin Note: [employer] 9-27- 10Admin Note: pt states administered at sham 11Admin Note: historical data Medications acetaminophen 325 mg oral capsule 2 capsule = 650 mg, By Mouth, 3 times a day, # 90 capsule, 4 Refills, Maintenance, 01/02/20 1:39:00 PM EDT, [facility] #36, 157.48, cm, 12/17/19 13:10:00 EST, [...] 0 Refills, Maintenance, 10/24/24 8:57:00 AM EST, [facility] #[id number], 2 puffs Inhalation Every 6 hours,PRN:wheezing cough, [...] 1 Refills, Maintenance, 10/01/24 10:38:00 AM EST, [place], [facility] #[id number], 155, cm, 10/01/24 10:24:00 EST, Height, 50.1, [...] ,rx 15no testing,prn bactrim 16seeing DR Romero,evaluating Diagnosis Diagnosis Type Effective Dates Health Status Clinical Service Informant Benign Essential Hypertension Discharge Diagnosis 10/29/24 Chronic renal impairment, stage 3 (moderate) Discharge Diagnosis 10/29/24 Chronic cough Discharge Diagnosis 10/29/24 Procedures Procedure Date Related Diagnosis Body Site Status CT of chest- No acute abnormality.Bibasilar lung atelectasis with 6 mm nodular densities at the left lung base possibly related to round atelectasis. 1 10/18/24 Completed 1No acute abnormality.Bibasilar lung atelectasis with 6 mm nodular densities at the left lung base possibly related to round atelectasis. Vital Signs Most recent to oldest [Reference Range]: 1 2 Height 155 cm (10/30/24 7:38 AM) 155 cm (10/30/24 7:20 AM) Weight 48.5 kg (10/30/24 7:20 AM) Oxygen Saturation [94-100 %] 96 % (10/30/24 7:20 AM) Pulse Rate [55-90 bpm] 88 bpm (10/30/24 7:20 AM) Body Mass Index [18.5-24.99 kg/m2] 20.19 kg/m2 (10/30/24 7:20 AM) Blood Pressure [90-138/55-84 mm Hg] 126/ 60mm Hg (10/30/24 7:38 AM) 133/66mm Hg (10/30/24 7:20 AM) Mode of Delivery (Oxygen) Room air (10/30/24 7:20 AM) Blood pressure sites Arm, left (10/30/24 7:38 AM) Arm, left (10/30/24 7:20 AM) Weight Obtained Via Standing scale (10/30/24 7:20 AM) Social History Social History Type Response Smoking Status Never smoker; Tobacc o user in household: Yes entered on: 08/21/14 Sex Female Sex Representation Female (finding) Patient Care team information Care Team Personnel Name: Celestina King RN Position: [facility] RN Member Role: Primary Care Nurse Name: Joanna Julien NP Position: [facility] PCO Associate Professional Member Role: PCP Address: [address] [place] [address]- Telecom: Name: Michelle Cline RN Position: [facility] MR W/ Merge Member Role: Primary Care Nurse Name: Susan Ventura RN Position: [facility] Onco RN Member Role: Primary Care Nurse Name: Lindsey Fletcher RN Position: [facility] RN Member Role: Primary Care Nurse Name: Lianet Mcfadden RN Position: [facility] AMB Nurse Member Role: Primary Care Nurse Name: Kenny Quinonez RN Position: [facility] RN Member Role: Primary Care Nurse Care Team Related Persons Name: SHAILESH DAMICO Name: CONCETTA PUENTES Name: RHEA PUENTES Insurance Providers Guarantor name: MAXIME PUENTES Health Plan Information #: 1 Payer: MEDICARE PART B OUTPT Member Number: [id number] Policy Number: NA Group Number: NA Health Plan Information #: 2 Payer: [facility] SUP Member Number: [id number] Policy Number: NA Group Number: NA
--- OUTSIDE RECORDS SUMMARY | 2024-11-19 09:47 | XMS_ITS | Continuity of Care Document ---
Author Organization [facility] Address [address] [place] [address]- [facility] Name Relationship Address Phone ENIO PUENTESINE Personal Relationship Unknown Yolis vailable DEPREY, SHAILESH child Unknown Unavailable DELORIS, RHEA child Unknown Unavailable DELORIS, CONCETTA Personal Relationship Unknown Unav ailable DELORIS, MAXIME Personal Relationship Unknown Yolis vailable DELORIS, MAXIME Personal Relationship Unknown Yolis vailable DELORIS, CONCETTA spouse Unknown Unavailable DELORIS, MAXIME Personal Relationship Unknown Yolis vailable Care Team Providers Care Workforce Manager Name Role Phone Anaya ENTRY LEVEL MANAGER, Joanna Lafleur Primary Care Physician [phone] Encounter [facility] Date(s): 10/05/24 - 11/04/24 [facility] [address] [place] [address]- Encounter Type: Triage Allergies, Adverse Reactions, Alerts Substance Criticality Severity Reaction Reaction Severity Status clonidine Shaking Active penicillin Thrush Active metoprolol Resolved nortriptyline bad dreams Activ e trazodone Unknown body region Active Fosamax Ineffective tuyet g action Active spironolactone diarrhea Activ e lisinopril Unknown body region Active losartan dizzy Active topiramate Unknown body region Active Remicade hands swollen, painful, tinging Active Remeron Dizzy Active Duloxetine 1 Unknown [...] virus vaccine, inactivated 06/25/11 Give n SARS-CoV-2(COVID-19)mRNA-LNP vac(pys274) 09/09/24 Recorded SARS-CoV-2(COVID-19)mRNA-LNP vac(edu248) 09/21/23 Recorded pneumococcal 20-valent conjugate vaccine 4 05/06/23 Given tetanus/diphtheria/pertussis, acel(Tdap) 12/12/22 Given [id number]-HvT-8oTRC 12y+ bivalent booster vax 08/01/22 Recorded SARS-CoV-2 mRNA (arqttir-zxsh-ubnjt) vax 03/09/22 Recorded SARS-CoV-2 (COVID-19) mRNA BNT-162b2 [...] Toxoid Vaccine (oldterm) 10/17/96 Given 1Result Comment: [id number] 2Result Comment: [07/11/2017] makenna leahy 3Result Comment: [07/11/2014] [facility] 4Result Comment: [id number] 5Location History: [facility]NA [address] [phone] 6Result Comment: [11/04/2016] DOUBLE DOSE PER GI [...] Maintenance, 01/02/20 1:39:00 PM EDT, [facility] #[facility], 157.48, cm, 12/17/19 13:10:00 EST, [...] 0 Refills, Maintenance, 10/24/24 8:57:00 AM EST, [facility] #[id number], 2 puffs Inhalation Every 6 hours,PRN:wheezing cough, [...] Infusion, Every 6 weeks, 0 Refills, Maintenance, 3/26/18 11:14:40 AM EDT Start Date: 01/09/18 Status: [...] 1 Refills, Maintenance, 10/01/24 10:38:00 AM EST, [place], [facility] #[id number], 155, cm, 10/01/24 10:24:00 EST, Height, 50.1, [...] Team Personnel Name: Celestina King RN Position: [facility] RN Member Role: Primary Care Nurse Name: Joanna Julien NP Position: [facility] PCO Associate Professional Member Role: PCP Address: [address] [place] [address], [place] [address]- Telecom: Name: Michelle Cline RN Position: [facility] MR W/ Merge Member Role: Primary Care Nurse Name: Lorenzo ROJAS, Susan Monique Position: [facility] Onco RN Member Role: Primary Care Nurse Name: Lindsey Fletcher RN Position: [facility] RN Member Role: Primary Care Nurse Name: Lianet Mcfadden RN Position: [facility] AMB Nurse Member Role: Primary Care Nurse Name: Kenny Quinonez RN Position: [facility] RN Member Role: Primary Care [...]
--- OUTSIDE RECORDS SUMMARY | 2024-11-19 09:47 | XMS_ITS | Continuity of Care Document ---
Author Organization [facility] Rashi lt Address [address] [place] [address]- Care Team Providers Care Employee Placement Specialist Name Role Phone Anaya KATEY, Joanna Lafleur Primary Care Physician [phone] [place]counter [facility] Date(s): 10/08/24 - 11/07/24 [facility] Adult [address] [place] [address]- Encounter Type: Triage Allergies, Adverse Reactions, Alerts Substance Criticality Severity Reaction Reaction Severity Status clonidine Shaking Active nortriptyline bad dreams Activ e penicillin Thrush Active metoprolol Resolved spironolactone diarrhea [...] virus vaccine, inactivated 06/25/11 Give n SARS-CoV-2(COVID-19)mRNA-LNP vac(mvz279) 09/09/24 Recorded SARS-CoV-2(COVID-19)mRNA-LNP vac(prd920) 09/21/23 Recorded pneumococcal 20-valent conjugate vaccine 4 05/06/23 Given tetanus/diphtheria/pertussis, acel(Tdap) 12/12/22 Given VJIH-CoE-1cSJT 12y+ bivalent booster vax 08/01/22 Recorded SARS-CoV-2 mRNA (espjeqm-pzoy-veorg) vax 03/09/22 Recorded SARS-CoV-2 (COVID-19) mRNA BNT-162b2 [...] Toxoid Vaccine (oldterm) 10/17/96 Given 1Result Comment: [id number] 2Result Comment: [07/11/2017] makenna leahy 3Result Comment: [07/11/2014] [facility] 4Result Comment: [id number] 5[phone] 6Result Comment: [11/04/2016] DOUBLE DOSE PER GI [...] Maintenance, 01/02/20 1:39:00 PM EDT, [facility] #36, 157.48, cm, 12/17/19 13:10:00 EST, [...] 0 Refills, Maintenance, 10/24/24 8:57:00 AM EST, [facility] #[id number], 2 puffs Inhalation Every 6 hours,PRN:wheezing cough, [...] 1 Refills, Maintenance, 10/01/24 10:38:00 AM EST, [place], [facility] #[id number], 155, cm, 10/01/24 10:24:00 EST, Height, 50.1, [...] Team Personnel Name: Celestina King RN Position: [facility] RN Member Role: Primary Care Nurse Name: Joanna Julien NP Position: [facility] PCO Associate Professional Member Role: PCP Address: [address] [place] [address]- Telecom: Name: Michelle Cline RN Position: [facility] MR W/ Merge Member Role: Primary Care Nurse Name: Susan Ventura RN Position: [facility] Onco RN Member Role: Primary Care Nurse Name: Lindsey Fletcher RN Position: [facility] RN Member Role: Primary Care Nurse Name: Lianet Mcfadden RN Position: [facility] AMB Nurse Member Role: Primary Care Nurse Name: Kenny Quinonez RN Position: [facility] RN Member Role: Primary Care [...]
--- OUTSIDE RECORDS SUMMARY | 2024-11-19 09:47 | XMS_ITS | Continuity of Care Document ---
Author Organization [facility] Rashi lt Address [address] [place] [address]- Care Team Providers Care Landscape Architect Name Role Phone Anaya Joanna DEL TORO Primary Care Physician Encounter [facility] Date(s): 10/15/24 - 11/14/24 [facility] Adult [address] [place] [address]- Encounter Type: Triage Allergies, Adverse Reactions, Alerts [...] virus vaccine, inactivated 06/25/11 Give n SARS-CoV-2(COVID-19)mRNA-LNP vac(wjo976) 09/09/24 Recorded SARS-CoV-2(COVID-19)mRNA-LNP vac(idt020) 09/21/23 Recorded pneumococcal 20-valent conjugate vaccine 4 05/06/23 Given tetanus/diphtheria/pertussis, acel(Tdap) 12/12/22 Given GWWZ-LiM-8bBBY 12y+ bivalent booster vax 08/01/22 Recorded SARS-CoV-2 mRNA (cegydbt-vkrx-ufmqh) vax 03/09/22 Recorded SARS-CoV-2 (COVID-19) mRNA BNT-162b2 [...] Toxoid Vaccine (oldterm) 10/17/96 Given 1Result Comment: [id number] 2Result Comment: [07/11/2017] makenna leahy 3Result Comment: [07/11/2014] [facility] 4Result Comment: [id number] 5Location History: [facility] [address] [phone] 6Result Comment: [11/04/2016] DOUBLE DOSE PER GI [...] Maintenance, 01/02/20 1:39:00 PM EDT, [facility] #36, 157.48, cm, 12/17/19 13:10:00 EST, [...] 0 Refills, Maintenance, 10/24/24 8:57:00 AM EST, [facility] #[id number], 2 puffs Inhalation Every 6 hours,PRN:wheezing cough, [...] 1 Refills, Maintenance, 10/01/24 10:38:00 AM EST, [place], [facility] #[id number], 155, cm, 10/01/24 10:24:00 EST, Height, 50.1, [...] Care Nurse Name: Joanna Julien NP Position: [facility] PCO Associate Professional Member Role: PCP Address: [address] [place] [address]- Telecom: Name: Michelle Cline RN Position: [facility] MR W/ Merge Member Role: Primary Care Nurse Name: Lorenzo RNSusan Position: [facility] Onco RN Member Role: Primary Care Nurse Name: Lindsey Fletcher RN Position: [facility] RN Member Role: Primary Care Nurse Name: Lianet Mcfadden RN Position: [facility] AMB Nurse Member Role: Primary Care Nurse Name: Kenny Quinonez RN Position: [facility] RN Member Role: Primary Care [...]
--- OUTSIDE RECORDS SUMMARY | 2024-11-19 09:47 | XMS_ITS | Continuity of Care Document ---
Author Organization [facility] Roly Salguero ns [facility] Address [address], [address] [place] [address]- Care Team Providers Care Spool Cleaner Hand Name Role Phone Anaya PATIENT BILLER, Joanna Lafleur Primary Care Physician [phone] [facility] [id number] Date(s): [facility] [address], [address] [place], [place] [address] Attending Physician: Not on Staff, Attending MD Referring Physician: Anjelica Baron MD Encounter Type: Pre-OutPatient One Time Allergies, Adverse Reactions, Alerts Substance Criticality Severity [...] virus vaccine, inactivated 06/25/11 Give n SARS-CoV-2(COVID-19)mRNA-LNP vac(lyf499) 09/09/24 Recorded SARS-CoV-2(COVID-19)mRNA-LNP vac(apf366) 09/21/23 Recorded pneumococcal 20-valent conjugate vaccine 4 05/06/23 Given tetanus/diphtheria/pertussis, acel(Tdap) 12/12/22 Given TRNI-KjR-8mQMB 12y+ bivalent booster vax 08/01/22 Recorded SARS-CoV-2 mRNA (gahxrdw-gcku-iuwfq) vax 03/09/22 Recorded SARS-CoV-2 (COVID-19) mRNA BNT-162b2 [...] Toxoid Vaccine (oldterm) 10/17/96 Given 1Result Comment: [id number] 2Result Comment: [07/11/2017] makenna leahy 3Result Comment: [07/11/2014] [facility] 4Result Comment: [id number] 5Location History: [facility] [phone] 6Result Comment: [11/04/2016] DOUBLE DOSE PER GI 7Result Comment: [11/04/2016] DOUBLE DOSE PER GI 8Result Comment: [03/07/2015] received here 9Admin Note: [employer] 07-13-13 10Admin Note: pt states administered at sham 11Admin Note: historical data Medications acetaminophen 325 mg oral capsule 2 capsule = 650 mg, By Mouth, 3 times a day, # 90 capsule, 4 Refills, Maintenance, 01/02/20 1:39:00 PM EDT, [facility], 157.48, cm, 12/17/19 13:10:00 EST, [...] 0 Refills, Maintenance, 10/24/24 8:57:00 AM EST, [facility] #[id number], 2 puffs Inhalation Every 6 hours,PRN:wheezing cough, [...] AM EST, 10/01/24 10:42:00 AM EST, [place], [facility] #[id number], =, 1 inhalation Inhalation Daily,x30 days,Instr:at the [...] 1 Refills, Maintenance, 10/01/24 10:38:00 AM EST, [place], [facility] #[id number], 155, cm, 10/01/24 10:24:00 EST, Height, 50.1, [...] Team Personnel Name: Celestina King RN Position: [facility] RN Member Role: Primary Care Nurse Name: Joanna Julien NP Position: [facility] PCO Associate Professional Member Role: PCP Address: [address] [place] [address]- Telecom: Name: Michelle Cline RN Position: [facility] MR W/ Merge Member Role: Primary Care Nurse Name: Susan Ventura RN Position: [facility] Onco RN Member Role: Primary Care Nurse Name: Lindsey Fletcher RN Position: [facility] RN Member Role: Primary Care Nurse Name: Lianet Mcfadden RN Position: [facility] AMB Nurse Member Role: Primary Care Nurse Name: Kenny Quinonez RN Position: [facility] RN Member Role: Primary Care Nurse Care Team Related Persons Name: SHAILESH DAMICO Name: CONCETTA PUENTES Name: RHEA PUENTES Insurance Providers Guarantor name: MAXIME PUENTES Health Plan Information #: 1 Payer: MEDICARE PART B OUTPT Member Number: [id number] Policy Number: NA Group Number: NA Health Plan Information #: 2 Payer: [facility] SUP Member Number: [id number] Policy Number: NA Group Number: NA
--- OUTSIDE RECORDS SUMMARY | 2024-11-19 09:47 | XMS_ITS | Continuity of Care Document ---
Author Organization [facility] Rashi lt Address [address] [place] [address]- Care Team Providers Care Transporter Driver Name Role Phone Joanna Julien NP Primary Care Physician [id number] - 10[facility]31/[facility] Adult [address] [place] [address]- Attending Physician: Eliza Peres Referring Physician: Joanna Julien NP Encounter Type: Pre Office Visit Allergies, Adverse Reactions, Alerts Substance Criticality Severity Reaction Reaction Severity Status clonidine Shaking Active losartan dizzy Active Fosamax Ineffective tuyet g action Active penicillin Thrush Active metoprolol Resolved nortriptyline bad dreams Activ e spironolactone diarrhea Activ e trazodone Unknown body region Active lisinopril Unknown body region Active topiramate Unknown [...] Angel Luis rded influenza virus vaccine, inactivated 9/26/18 Give n influenza virus vaccine, inactivated 2 07/04/17 Re corded influenza virus vaccine, inactivated 08/20/16 Give n influenza virus vaccine, inactivated 07/24/15 Give n influenza virus vaccine, inactivated 12/23/14 Give n influenza virus vaccine, inactivated 08/15/14 Angel Luis rded influenza virus vaccine, inactivated 3 07/10/14 Gi clyde influenza virus vaccine, inactivated 07/09/13 Give n influenza virus vaccine, inactivated 06/25/11 Give n SARS-CoV-2(COVID-19)mRNA-LNP vac(izi784) 09/09/24 Recorded SARS-CoV-2(COVID-19)mRNA-LNP vac(enf664) 09/21/23 Recorded pneumococcal 20-valent conjugate vaccine 4 05/06/23 Given tetanus/diphtheria/pertussis, acel(Tdap) 12/12/22 Given HZMQ-XcK-9rWMM 12y+ bivalent booster vax 08/01/22 Recorded SARS-CoV-2 mRNA (sucgruh-oxlv-uxwpp) vax 03/09/22 Recorded SARS-CoV-2 (COVID-19) mRNA BNT-162b2 [...] Toxoid Vaccine (oldterm) 10/17/96 Given 1Result Comment: [id number] 2Result Comment: [07/11/2017] [facility] 3Result Comment: [07/11/2014] [facility] 4Result Comment: [id number] 5Location History: [facility] [phone] 6Result Comment: [11/04/2016] DOUBLE DOSE PER GI 7Result Comment: [11/04/2016] DOUBLE DOSE PER GI 8Result Comment: [03/07/2015] received here 9Admin Note: [employer] 07-13-13 10Admin Note: pt states administered at sham 11Admin Note: historical data Medications acetaminophen 325 mg oral capsule 2 capsule = 650 mg, By Mouth, 3 times a day, # 90 capsule, 4 Refills, Maintenance, 01/02/20 1:39:00 PM EDT, [facility], 157.48, cm, 12/17/19 13:10:00 EST, [...] 0 Refills, Maintenance, 10/24/24 8:57:00 AM EST, [facility] #[id number], 2 puffs Inhalation Every 6 hours,PRN:wheezing cough, [...] 1 Refills, Maintenance, 10/01/24 10:38:00 AM EST, [place], [facility] #[id number], 155, cm, 10/01/24 10:24:00 EST, Height, 50.1, [...] Team Personnel Name: Celestina King RN Position: [facility] RN Member Role: Primary Care Nurse Name: Joanna Julien NP Position: [facility] PCO Associate Professional Member Role: PCP Address: [address] [place] [address]- Telecom: Name: Michelle Cline RN Position: [facility] MR W/ Merge Member Role: Primary Care Nurse Name: Susan Ventura RN Position: [facility] Onco RN Member Role: Primary Care Nurse Name: Lindsey Fletcher RN Position: [facility] RN Member Role: Primary Care Nurse Name: Lianet Mcfadden RN Position: [facility] AMB Nurse Member Role: Primary Care Nurse Name: Kenny Quinonez RN Position: [facility] RN Member Role: Primary Care Nurse Care Team Related Persons Name: MOOKIE SHAILESH Name: CONCETTA PUENTES Name: RHEA PUENTES Insurance Providers Guarantor name: MAXIME PUENTES Health Plan Information #: 2 Payer: [facility] SUP Member Number: [id number] Policy Number: NA Group Number: NA Health Plan Information #: 1 Payer: MEDICARE PART B OUTPT Member Number: [id number] Policy Number: NA Group Number: NA
--- OUTSIDE RECORDS SUMMARY | 2024-11-19 09:48 | XMS_ITS | Continuity of Care Document ---
Author Organization [facility] Roly Salguero ns [facility] Address [address], [address] [place] [address]- Care Team Providers Care Before And After School Daycare Worker Name Role Phone Anaya CERTIFIED ART THERAPIST, Joanna Lafleur Primary Care Physician Encounter [facility] Date(s): 06/26/24 - [facility] [address], [address] [place], [place] [address] Attending Physician: Not on Staff, Attending MD Referring Physician: Stef DEL TORO, Tamara Donohue Encounter Type: Pre Office Visit Allergies, Adverse [...] virus vaccine, inactivated 06/25/11 Give n SARS-CoV-2(COVID-19)mRNA-LNP vac(tyr542) 09/09/24 Recorded SARS-CoV-2(COVID-19)mRNA-LNP vac(xlh319) 09/21/23 Recorded pneumococcal 20-valent conjugate vaccine 4 05/06/23 Given tetanus/diphtheria/pertussis, acel(Tdap) 12/12/22 Given [id number] 12y+ bivalent booster vax 08/01/22 Recorded SARS-CoV-2 mRNA (lyuhykn-tylx-aztgj) vax 03/09/22 Recorded SARS-CoV-2 (COVID-19) mRNA BNT-162b2 [...] Toxoid Vaccine (oldterm) 10/17/96 Given 1Result Comment: [id number] 2Result Comment: [07/11/2017] [facility]aken[facility]ahy 3Result Comment: [07/11/2014] [facility] 4Result Comment: [id number] 5Location History: [facility] [phone] 6Result Comment: [11/04/2016] DOUBLE DOSE PER GI 7Result Comment: [11/04/2016] DOUBLE DOSE PER GI 8Result Comment: [03/07/2015] received here 9Admin Note: COTA 07-13-13 10Admin Note: pt states administered at sham 11Admin Note: historical data Medications acetaminophen 325 mg oral capsule 2 capsule = 650 mg, By Mouth, 3 times a day, # 90 capsule, 4 Refills, Maintenance, 01/02/20 1:39:00 PM EDT, [facility] #[facility], 157.48, cm, 12/17/19 13:10:00 EST, [...] 0 Refills, Maintenance, 10/24/24 8:57:00 AM EST, [facility] #[id number], 2 puffs Inhalation Every 6 hours,PRN:wheezing cough, [...] AM EST, 10/01/24 10:42:00 AM EST, [place], [id number], =, 1 inhalation Inhalation Daily,x30 days,Instr:at the [...] 1 Refills, Maintenance, 10/01/24 10:38:00 AM EST, [place], [facility] #[id number], 155, cm, 10/01/24 10:24:00 EST, Height, 50.1, [...] Team Personnel Name: Celestina King RN Position: [facility] RN Member Role: Primary Care Nurse Name: Joanna Julien NP Position: [facility] PCO Associate Professional Member Role: PCP Address: [address] [place] [address]- Telecom: Name: Michelle Cline RN Position: [facility] MR W/ Merge Member Role: Primary Care Nurse Name: Susan Ventura RN Position: [facility] Onco RN Member Role: Primary Care Nurse Name: Lindsey Fletcher RN Position: [facility] RN Member Role: Primary Care Nurse Name: Lianet Mcfadden RN Position: [facility] AMB Nurse Member Role: Primary Care Nurse Name: Kenny Quinonez RN Position: [facility] RN Member Role: Primary Care Nurse Care Team Related Persons Name: SHAILESH DAMICO Name: CONCETTA PUENTES Name: RHEA PUENTES Insurance Providers Guarantor name: MAXIME PUENTES Health Plan Information #: 1 Payer: MEDICARE PART B OUTPT Member Number: [id number] Policy Number: NA Group Number: NA Health Plan Information #: 2 Payer: [facility] SUP Member Number: [id number] Policy Number: NA Group Number: NA
--- OUTSIDE RECORDS SUMMARY | 2024-11-19 09:48 | XMS_ITS | Continuity of Care Document ---
Author Organization [facility] Roly Salguero ns [facility] Address [address], [address] [place] [address]- Care Team Providers Care Presetter Operator Name Role Phone Anaya CROP GRAIN OR LIVESTOCK FARMER, Joanna Lafleur Primary Care Physician Encounter [facility] Date(s): 10/05/24 - 11/04/24 [facility] Roly Churchill's [facility] [address], [address] [place], [place] [address] Encounter Type: Triage Allergies, Adverse Reactions, [...] virus vaccine, inactivated 06/25/11 Give n SARS-CoV-2(COVID-19)mRNA-LNP vac([id number]) 09/09/24 Recorded SARS-CoV-2(COVID-19)mRNA-LNP vac(atj855) 09/21/23 Recorded pneumococcal 20-valent conjugate vaccine 4 05/06/23 Given tetanus/diphtheria/pertussis, acel(Tdap) 12/12/22 Given [id number] 12y+ bivalent booster vax 08/01/22 Recorded SARS-CoV-2 mRNA (oecvxwz-abkq-yfaau) vax 03/09/22 Recorded SARS-CoV-2 (COVID-19) mRNA BNT-162b2 [...] Pertussis (oldterm) 04/30/13 Give n Fluarix (oldterm) 10/17/12 Given FluLaval (oldterm) 10 08/17/10 Given Influenza Inactive (IM) (oldterm) 07/01/09 Given Influenza Inactive (IM) (oldterm) 08/27/08 Given Pneumococcal Vaccine (oldterm) 05/25/07 Given tetanus-diphtheria toxoids (Td) 11 02/14/07 Given Tetanus Toxoid Vaccine (oldterm) 10/17/96 Given 1Result Comment: [id number] 2Result Comment: [07/11/2017] makenna leahy 3Result Comment: [07/11/2014] [facility] 4Result Comment: [id number] 5Location History: [facility] [address] [phone] 6Result Comment: [11/04/2016] DOUBLE DOSE PER GI [...] Maintenance, 01/02/20 1:39:00 PM EDT, [facility], 157.48, cm, 12/17/19 13:10:00 EST, [...] 0 Refills, Maintenance, 10/24/24 8:57:00 AM EST, [facility] #[id number], 2 puffs Inhalation Every 6 hours,PRN:wheezing cough, [...] 1 Refills, Maintenance, 10/01/24 10:38:00 AM EST, [place], [facility] #[id number], 155, cm, 10/01/24 10:24:00 EST, Height, 50.1, [...] Team Personnel Name: Celestina King RN Position: [facility] RN Member Role: Primary Care Nurse Name: Joanna Julien NP Position: [facility] PCO Associate Professional Member Role: PCP Address: [address] [place] [address]- Telecom: Name: Michelle Cline RN Position: [facility] MR W/ Merge Member Role: Primary Care Nurse Name: Susan Ventura RN Position: [facility] Onco RN Member Role: Primary Care Nurse Name: Lindsey Fletcher RN Position: [facility] RN Member Role: Primary Care Nurse Name: Lianet Mcfadden RN Position: [facility] AMB Nurse Member Role: Primary Care Nurse Name: Kenny Quinonez RN Position: [facility] RN Member Role: Primary Care Nurse Care Team Related Persons Name: SHAILESH DAMICO Name: CONCETTA PUENTES Name: RHEA PUENTES Insurance Providers Guarantor name: MAXIME PUENTES Health Plan Information #: 1 Payer: MEDICARE PART B OUTPT Member Number: NA Policy Number: NA Group Number: NA Health Plan Information #: 2 Payer: [facility] SUP Member Number: NA Policy Number: NA Group Number: NA
--- OUTSIDE RECORDS SUMMARY | 2024-11-19 09:48 | XMS_ITS | Continuity of Care Document ---
Author Organization [facility] Rashi lt Address [address] [place] [address]- Care Team Providers Care Egg Processor Name Role Phone Anaya KATEY, Joanna Lafleur Primary Care Physician En[place] [facility] [place] [id number] Date(s): 09/29/24 - 10/29/24 [facility] Adult [address] [place] [address]- Encounter Type: Triage Allergies, Adverse Reactions, Alerts [...] virus vaccine, inactivated 06/25/11 Give n SARS-CoV-2(COVID-19)mRNA-LNP vac(spz870) 09/09/24 Recorded SARS-CoV-2(COVID-19)mRNA-LNP vac(mqa149) 09/21/23 Recorded pneumococcal 20-valent conjugate vaccine 4 05/06/23 Given tetanus/diphtheria/pertussis, acel(Tdap) 12/12/22 Given [id number] 12y+ bivalent booster vax 08/01/22 Recorded SARS-CoV-2 mRNA (uoqmlpu-mesi-fcile) vax 03/09/22 Recorded SARS-CoV-2 (COVID-19) mRNA BNT-162b2 [...] Toxoid Vaccine (oldterm) 10/17/96 Given 1Result Comment: [id number] 2Result Comment: [07/11/2017] [facility] 3Result Comment: [07/11/2014] [facility] 4Result Comment: [id number] 5Location History: [facility] [phone] 6Result Comment: [11/04/2016] DOUBLE DOSE PER GI 7Result Comment: [11/04/2016] DOUBLE DOSE PER GI 8Result Comment: [03/07/2015] received here 9Admin Note: [employer] 07-13-13 10Admin Note: pt states administered at sham 11Admin Note: historical data Medications acetaminophen 325 mg oral capsule 2 capsule = 650 mg, By Mouth, 3 times a day, # 90 capsule, 4 Refills, Maintenance, 01/02/20 1:39:00 PM EDT, [facility] #36, 157.48, cm, 12/17/19 13:10:00 EST, [...] 0 Refills, Maintenance, 10/24/24 8:57:00 AM EST, [facility] #[id number], 2 puffs Inhalation Every 6 hours,PRN:wheezing cough, [...] AM EST, 10/01/24 10:42:00 AM EST, [place], [facility] #[id number], =, 1 inhalation Inhalation Daily,x30 days,Instr:at the [...] 1 Refills, Maintenance, 10/01/24 10:38:00 AM EST, [place], [facility] #[id number], 155, cm, 10/01/24 10:24:00 EST, Height, 50.1, [...] Team Personnel Name: Celestina King RN Position: [facility] RN Member Role: Primary Care Nurse Name: Joanna Julien NP Position: [facility] PCO Associate Professional Member Role: PCP Address: [address] [place] [address]- Telecom: Name: Michelle Cline RN Position: [facility] MR W/ Merge Member Role: Primary Care Nurse Name: Susan Ventura RN Position: [facility] Onco RN Member Role: Primary Care Nurse Name: Lindsey Fletcher RN Position: [facility] RN Member Role: Primary Care Nurse Name: Lianet Mcfadden RN Position: [facility] AMB Nurse Member Role: Primary Care Nurse Name: Kenny Quinonez RN Position: [facility] RN Member Role: Primary Care Nurse Care Team Related Persons Name: SHAILESH DAMICO Name: CONCETTA PUENTES Name: RHEA PUENTES Insurance Providers Guarantor name: [facility] Plan Information #: 1 Payer: MEDICARE PART B OUTPT Member Number: NA Policy Number: NA Group Number: NA Health Plan Information #: 2 Payer: [facility] Member Number: NA Policy Number: NA Group Number: NA
--- OUTSIDE RECORDS SUMMARY | 2024-11-19 09:48 | XMS_ITS | Continuity of Care Document ---
Author Organization [facility] Roly Salguero ns [facility] Address [address], [address] [place] [address]- Care Team Providers Care Outpatient Admitting Clerk Name Role Phone Anaya OUTSEWER, Joanna Lafleur Primary Care Physician Encounter [facility] Date(s): 10/15/24 - 11/14/24 [facility] Roly Churchill's [facility] [address] [place], [place] [address] Encounter Type: Triage Allergies, Adverse Reactions, Alerts Substance Criticality Severity Reaction Reaction Severity Status clonidine Shaking Active metoprolol Resolved losartan dizzy Active penicillin Thrush Active nortriptyline bad dreams Activ e spironolactone diarrhea [...] virus vaccine, inactivated 06/25/11 Give n SARS-CoV-2(COVID-19)mRNA-LNP vac([id number]) 09/09/24 Recorded SARS-CoV-2(COVID-19)mRNA-LNP vac(bcg059) 09/21/23 Recorded pneumococcal 20-valent conjugate vaccine 4 05/06/23 Given tetanus/diphtheria/pertussis, acel(Tdap) 12/12/22 Given [id number] 12y+ bivalent booster vax 08/01/22 Recorded SARS-CoV-2 mRNA (ucmohjw-abbb-aujpb) vax 03/09/22 Recorded SARS-CoV-2 (COVID-19) mRNA BNT-162b2 [...] Toxoid Vaccine (oldterm) 10/17/96 Given 1Result Comment: [id number] 2Result Comment: [07/11/2017] makenna leahy 3Result Comment: [07/11/2014] [facility] 4Result Comment: [id number] 5Location History: [facility] [address] [phone] 6Result Comment: [11/04/2016] DOUBLE DOSE PER GI [...] 0 Refills, Maintenance, 10/24/24 8:57:00 AM EST, [facility] #[id number], 2 puffs Inhalation Every 6 hours,PRN:wheezing cough, [...] 1 Refills, Maintenance, 10/01/24 10:38:00 AM EST, [place], [facility] #[id number], 155, cm, 10/01/24 10:24:00 EST, Height, 50.1, [...] Associate Professional Member Role: PCP Address: [address] [place] [address]- Telecom: Name: Michelle Cline RN Position: [facility] [...] Care Nurse Name: Kenny Quinonez RN Position: [facility] RN Member Role: Primary Care Nurse Care Team Related Persons Name: SHAIELSH DAMICO Name: CONCETTA PUENTES Name: RHEA PUENTES Insurance Providers Guarantor name: MAXIME PUENTES Health Plan Information #: 1 Payer: MEDICARE PART B OUTPT Member Number: NA Policy Number: NA Group Number: NA Health Plan Information #: 2 Payer: [facility] SUP Member Number: NA Policy Number: NA Group Number: NA
--- OUTSIDE RECORDS SUMMARY | 2024-11-19 09:48 | XMS_ITS | Clinical Summary ---
Author Organization [facility] Address [address] [place] [address] Care Team Providers Care Micro Paleontologist Name Role Phone Unavailable Primary Care Provider Unavailabl e Social History Tobacco Use Types Packs/Day Years Used Date Smoking Tobacco: Never Assessed Sex and Gender Information Value Date Recorded Sex Assigned at Not on file Gender Identity Not on file Sexual Orientation Not on file Plan of Treatment Health Maintenance Due Date Last Done Comments DTaP/Tdap/Td Vaccines (1 - Tdap) 1962 Pneumococcal Vaccines 50+ (1 of 1 - PCV) 1993 Zoster (Shingles) Vaccine (1 of 2) 1993 RSV Vaccine 60 years and old er and Patients (1 - 1-dose 75+ series) 2018 COVID-19 Vaccine ( - 2023-2 5 season) 2024 Hepatitis B Vaccines Aged Out No long er eligible based on patient's age to complete this topic
== END 2024-11-19 10:17 | disposition home or self-care (01) ==
PROVIDERS: PCP Nurse Practitioner Family; Referring Provider Nurse Practitioner Family; Visit Provider Internal Medicine
DX: R05.9 Cough, unspecified (principal); J32.9 Chronic sinusitis, unspecified
CPT/HCPCS: 99204

== ENCOUNTER 2024-11-19 10:19 | Outpatient (REF) | payer MEDICARE, SELFPAY ==
--- NOTE | ~2024-11-19 | XR_ITS ---
EXAMINATION: XR SINUSES CLINICAL INFORMATION: J32.9 - Chronic sinusitis, unspecified COMPARISON: None available. TECHNIQUE: 3 views of the sinuses were obtained. FINDINGS: Poor pneumatization of the right maxillary sinus. Air-fluid levels in the maxillary sinuses. Levoconvex nasal septum deviation. Edentulous, maxilla and mandible. XR/XR sinus <3V IMPRESSION: Concerning acute maxillary sinus disease. Levoconvex nasal septum deviation. Electronically signed by: Zack Rod MD 11/19/2024 03:41 PM EST
[2024-11-19 10:32] LABS: MANUAL DIFF FLAG NO
--- OUTSIDE RECORDS SUMMARY | 2024-11-19 11:07 | XMS_ITS | Clinical Summary ---
Author Organization [facility] Address [address] [place] [address] Care Team Providers Care Executive Director Contract Shop Name Role Phone Unavailable Primary Care Provider [...]
--- OUTSIDE RECORDS SUMMARY | 2024-11-19 11:07 | XMS_ITS | Data Portability ---
Author Organization [place] - Count includes the [facility] Address [address] [place] [id number] Assessment Encounter Date Assessment Date Assessment LastModified by Organization Details LastModified Time 03/27/2019 03/27/2019 Overview/History : 73 yo female with PMH of HLD, HTN, GERD, crohn's, eczema who presents with complain of dizziness and nausea. Patient reports that last week she started new medications for pain: tramadol and topiramate. She reports that right after staring those medications she developed nausea, dizziness, upset stomach, and loss of appetite. She stop taking those medications 2 days ago but symptoms persisted and her PCP office advised evaluation by DH provider. Patient denied headache, chest pain, shortness of breath, abdominal pain, vomiting, diarrhea, urinary symptoms. Exam: elderly female well appearing, no acute distress, non-toxic appearance; Alert and Oriented x3. Positive Head impulse test; unidirectional horizontal nystagmus present; no skew deviation with Alternate eye cover test; No focal deficits; gate is steady, ambulates independently Mucous membranes are pink, mildly dry without lesions; Heart sounds are regular rate and rhythm; no audible murmurs, rubs, or gallops No signs of respiratory distress. Lungs are clear to auscultation in all fileds abdomen is soft, non tender, non distended. Bowel sounds are normoactive and present in all quadrants; No CVA tenderness DDx considered, but not limited to: adverse effects of medications UTI dehydration ACS - will perform EKG to r/o viral gastroenteritis Work up/Results: Chem 8 WNL Urine dipstick - negative for infection EKG - sinus bradycardia; no ST elevation/depressi on Plan/Discussion: - patient was advised that symptoms are most likely due to adverse medications side effects; advised to follow up with prescribing provider; take tylenol for pain at the meantime - urine dipstick; chem 8, EKG are within normal limits - borderline orthostatic hypotension, most likely due to mild dehydration - NS 1L IV bolus given for hydration; patient tolerated procedure well and reported improvement od symptoms - meclizine 25mg PO once given on scene for dizziness; advised patient may take OTC if symptoms persist - zofran 4mg IV once on scene for nausea; prescription for PO zofran sent to the pharmacy - follow up with PCP for further medication management - advised when to seek immediate medical attention/911/ED - patient expressed understanding and agreed to tx plan In order to obtain further information and compare any laboratory results/values, I have accessed patient records on the [employer]. This information was pertinent in my medical decision making today. Time On Scene with Patient: 01:02:38 gallo Not available 03/28/2019 22:34:15 Plan of Treatment Reminders Order Date Submit Date Provider Last Modified By Organization Details Last Modified Time Details Appointments None recorded. Lab BMP + ionized calcium, serum or plasma 2018 019 [email or web address] - Home, [address] [place], [address], 9 12:25:35 urinalysis , dipstick 2018 019 [email or web address] - [facility], [address] [place], [address], 9 22:16:43 Referral None recorded. Procedures None recorded. Surgeries None recorded. Imaging None recorded. Medication Orders meclizine 25 mg tablet 2018 019 [email or web address], [address] [place] [address], [id number], 9 12:25:35 sodium chloride 0.9 % intravenou s solution 2018 019 [email or web address], [address] [place] [address], [address], 9 12:25:35 Zofran 4 mg tablet 2018 019 [facility], [address] [place] [address], [address], 9 12:25:39 Zofran 2 mg/mL intravenou s solution 2018 019 [email or web address] Not available 9 16:50:32 Patient TargetsNo targets recorded. Patient Instructions Encounter Date Encounter Id Patient Instructions Last Modified By Organization Details Last Modified Time 03/27/2019 [id number] rhythm strip, EKG* [email or web address] Not availa ble 03/27/2019 13:44:54 YOU WERE SEEN FO R DIZZINESS AND NAUSEA; YOUR SYMPTOMS ARE MOST LIKELY DUE TO THE SIDE EFFECTS OF NEW MEDICATIONS AND MILD DEHYDRATION. YOUR EKG WAS WITHIN NORMAL LIMITS YOUR BLOOD ELECTROLYTES AND KIDNEY FUNCTION SHOWED MILD DEHYDRATION YOU WERE GIVEN IV FLUIDS FOR HYDRATION AND MECLIZINE FOR DIZZINESS MEDICATIONS FOR NAUSEA WERE SENT TO THE PHARMACY, TAKE PRESCRIBED PLEASE, DRINK PLENTY OF FLUIDS TO STAY HYDRATED FOLLOW UP WITH YOUR PRIMARY CARE DOCTOR FOR FURTHER MEDICATIONS MANAGEMENT AND PAIN MANAGEMENT SEEK IMMEDIATE ATTENTION OR CALL 911 IF YOUR SYMPTOMS WORSEN OR IF YOU DVELOP ANY NEW CONCERNING SYMPTOMS SUCH SHORTNESS OF BREATH, CHEST PAIN, UNCONTROLLED NAUSEA AND VOMITING, FEVER THAT DOES NOT RESOLVE WITH TYLENOL Thank you for your visit with [facility] today. We cannot always find the exact cause of your symptoms during your initial visit. Please follow up with your primary care provider or specialist as needed to be rechecked or seek medical attention if your symptoms do not go away or get worse. If you develop any new or worsening symptoms and need after hours care, please go to nearest ER and/or call 911. If you have additional concerns or develop a change in your condition between 8am-10pm, please call [facility] at [phone] to help navigate your care. [email or web address] Not available 03/27/2019 12:25:32 Reason for Referral None Reported. Results Created Date Observation Date Name Description Value Unit Range Abnormal Flag Note LastModifiedBy Organization Detail LastModifiedTime 03/28/2003/28/2019 urina lysis , dipst ick Appearance clear Not Available [facility] - H [facility]me [address], [place], [address], 03/28/2019 22:15:44 03/28/20 19 03/28/2019 urina lysis , dipst ick Color yellow Not Available Spr - Home [address] [place], [address], 03/28/2019 22:15:44 03/28/2003/28/2019 urina lysis , dipst ick Glucose negati ve Not Available Spr - Home [address] [place], [address], 03/28/2019 22:15:44 03/28/2003/28/2019 urina lysis , dipst ick Bilirubin negati ve Not Available Spr - Home [address] [place], [address], 03/28/2019 22:15:44 03/28/2003/28/2019 urina lysis , dipst ick Ketones NEG Not Available Spr - Home [address] [place], [address], 03/28/2019 22:15:44 03/28/2003/28/2019 urina lysis , dipst ick Sp. [place] 1.020 Not Available Spr - Home [address] [place], [address], 03/28/2019 22:15:44 03/28/2003/28/2019 urina lysis , dipst ick Blood NEG Not Available [facility] - Home [address] [place], [address], 03/28/2019 22:15:44 03/28/2003/28/2019 urina lysis , dipst ick pH 5.0 Not Available [facility] - Home [address] [place], [address], 03/28/2019 22:15:44 03/28/2003/28/2019 urina lysis , dipst ick Protein negati ve Not Available [facility] - Home [address] [place], [address], 03/28/2019 22:15:44 03/28/2003/28/2019 urina lysis , dipst ick Urobilirubin negati ve Not Available Spr - Home [address], [place], [address], 03/28/2019 22:15:44 03/28/2003/28/2019 urina lysis , dipst ick Nitrites NEG Not Available [facility] - Yun [facility] [address] [place], [address], 03/28/2019 22:15:44 03/28/2003/28/2019 urina lysis , dipst ick Leukocytes NEG Not Available [facility] - [facility] [address] [place], [address], 03/28/2019 22:15:44 03/27/2003/27/2019 BMP + ioniz ed calci um, serum or plasm a Na 138 mmol/ L 136-14 5 Not Available [facility] - Home [address] [place], [address], 03/27/2019 11:57:03 03/27/2003/27/2019 BMP + ioniz ed calci um, serum or plasm a K 4.7 mmol/ L 3.5-5. 1 Not Available Spr - Home [address] [place], [address], 03/27/2019 11:57:03 03/27/2003/27/2019 BMP + ioniz ed calci um, serum or plasm a cL 101 mmol/ L 96-111 Not Available Spr - Home [address] [place], [address], 03/27/2019 11:57:03 03/27/2003/27/2019 BMP + ioniz ed calci um, serum or plasm a ica 1.16 mmol/ L 1.1-1. 4 Not Available [facility] - Home [address] [place], [address], 03/27/2019 11:57:03 03/27/2003/27/2019 BMP + ioniz ed calci um, serum or plasm a TCO2 25 mmol/ L 20-30 Not Available [facility] - Home [address] [place], [address], 03/27/2019 11:57:03 03/27/20 19 03/27/2019 BMP + ioniz ed calci um, serum or plasm a glu 102 mg/dL 70-115 Not Available Spr - [address] [place], [address], 03/27/2019 11:57:03 03/27/20 19 03/27/2019 BMP + ioniz ed calci um, serum or plasm a BUN 28 mg/dL 6-24 Not Available Spr - Home [address] [place], [address], 03/27/2019 11:57:03 03/27/2003/27/2019 BMP + ioniz ed calci um, serum or plasm a crea 1.1 mg/dL .65-1. 36 Not Available Spr - Home [address] [place], [address], 03/27/2019 11:57:03 03/27/2003/27/2019 BMP + ioniz ed calci um, serum or plasm a HCT 39 %_pcv 40.6-5 0.3 Not Available Spr - Home [address] [place], [address], 03/27/2019 11:57:03 03/27/20 19 03/27/2019 BMP + ioniz ed calci um, serum or plasm a Hb 13.3 g/dL 13.9-1 7.4 Not Available Spr - Home [address] [place], [address], 03/27/2019 11:57:03 03/27/20 19 03/27/2019 BMP + ioniz ed calci um, serum or plasm a angap 17 mmol/ L 6-18 Not Available Spr - Home [address] [place], [address], 03/27/2019 11:57:03 04/03/20 19 elect bakari [email or web address] am No observ ation record ed. Not Available 2018 15:09:34 Result Notes None recorded. Procedures Surgical History Date Name Laterality Status Provider Name and Address Organization Details Recorded Time 03/27/20 19 IV Start Procedure - completed CONRAD BOYKIN [address], [place], [address], [place] [facility] 03/28/2019 21:54:00 03/27/20 19 ECG Interpretation - completed CONRAD BOYKIN [address], [place], [address], [place] [facility] 03/28/2019 21:14:12 Imaging Results Imaging Date Name Status LastModified by Organization Details LastModified Time 04/03/2019 electrocardiogram completed [email or web address] Informa tion not available 04/03/2019 15:09:34 Procedure Notes None recorded. Medical Equipment None Reported. Allergies Allergen ID Allergen Name Allergen Category Reaction Reaction Severity Criticality Documentation Date Start Date Code Code System Note Provider Name and Address Organization Details Recorded Time 29869 Product containin g penicilli n and antibioti c (product) medicatio n Not available Not available Not available 03/27/2019 98543 05 SNOMED CONRAD BOYKIN [address] [place], [address], [place] [facility] 9 11:30:30 23695 Fosamax medicatio n Not available Not available Not available 03/27/2019 53830 5 RxNorm CONRAD BOYKIN [address] [place], [address], [place] [facility] 9 11:31:00 24776 trazodone medicatio n Not available Not available Not available 03/27/2019 98926 RxNorm CONRAD BOYKIN [address] [place], [address], [place] [facility] 9 11:31:22 29292 Remeron medicatio n Not available Not available Not available 03/27/2019 73539 4 RxNorm CONRAD BOYKIN [address] [place], [address], [place] [facility] 9 11:31:42 32896 clonidine medicatio n Not available Not available Not available 03/27/2019 2599 Rx[facility] MAKENZIE BETHEA, PA [address], [place], [address], [place] [facility] 9 11:31:55 24335 metoprolo l Not available Not available Not available Not available 03/27/2019 6918 RxNorm MAKENZIE BETHEA, PA [address], [place], [address], [place] [facility] 9 11:32:11 12480 losartan medicatio n Not available Not available Not available 03/27/2019 84733 RxNorm MAKENZIE BETHEA, PA [address], [place], [address], [place] [facility] 9 11:32:18 98426 amlodipin e medicatio n Not available Not available Not available 03/27/2019 14836 RxNorm MAKENZIE BETHEA, PA [address], [place], [address], [place] [facility] 9 11:32:35 00748 lisinopri l medicatio n Not available Not available Not available 03/27/2019 16323 RxNorm MAKENZIE BETHEA, PA [address], [place], [address], [place] [facility] 9 11:32:42 55874 spironola ctone medicatio n Not available Not available Not available 03/27/2019 9997 Rx[facility] MAKENZIE BETHEA, PA [address], [place], [address], [place] [facility] 9 11:32:58 55051 Remicade medicatio n Not available Not available Not available 03/27/2019 80363 0 RxNorm MAKENZIE BETHEA, PA [address], [place], [address], [place] [facility] 9 11:33:13 43395 nortripty line medicatio n Not available Not available Not available 03/27/2019 7531 RxNorm CONRAD BOYKIN [address], [facility] [place], [address], [place] [facility] 9 11:33:43 Medications Name Sig Start Date Stop Date Status Note LastModified by Organization Details LastModified Time celecoxib 200 mg capsule active Not Available Not Available Not Available clotrimazole 10 mg jocy active Not Available Not Available Not Available topiramate 25 mg tablet active Not Available Not Available Not Available clopidogrel 75 mg tablet active Not Available Not Available Not Available tramadol 50 mg tablet active Not Available Not Available No t Available Zofran 4 mg tablet Take 1 tablet 4 times a day by oral route for 3 days. 2018 active Not Available Not Available Not Avai lable alprazolam 0.5 mg tablet active Not Available Not Available Not Available amiloride 5 mg tablet active Not Available Not Available No t Available prednisolone acetate 1 % eye drops,suspen gianni active Not Available Not Available Not Available pravastatin 10 mg tablet active Not Available Not Available Not Available meclizine 25 mg tablet 25 mg PO administere d on scene. Time administere d: 1208 2018 active Not Available Not Available Not Avai lable pantoprazole 40 mg tablet,delay ed release active Not Available Not Available N ot Available indapamide 1.25 mg tablet active Not Available Not Available Not Available gabapentin 300 mg capsule active Not Available Not Available Not Available gabapentin 100 mg capsule active Not Available Not Available Not Available sodium chloride 0.9 % intravenous solution 1 L administere d on scene. Time administere d: 1200 2018 active Not Available Not Available Not Avai lable oxybutynin chloride 5 mg tablet active Not Available Not Available No t Available Zofran 2 mg/mL intravenous solution 4 mg IV administere d on scene. Time administere d: 1205 2018 active Not Available Not Available Not Avai lable atenolol 50 mg tablet active Not Available Not Available No t Available GaviLyte-G 236 gram-22.74 gram-6.74 gram-5.86 gram oral solution active Not Available Not Available Not Available Myrbetriq 50 mg tablet,exten ded release active Not Available Not Available Not Available Shingrix (PF) 50 mcg/0.5 mL intramuscula r suspension, kit active Not Available Not Available Not Available Vitals Date Recorded Heart rate Body temperature Oxygen saturation Oxygen saturation in Arterial blood by Pulse oximetry Respiratory rate Systolic blood pressure Diastolic blood pressure Systolic blood pressure Diastolic blood pressure Provider Name and Address Organization Details Last Updated DateTime 9 56 /min 97.6 [degF] 98 % 98 % 20 /min 160 mm[Hg] 60 mm[Hg] 152 mm[Hg] 56 mm[Hg] Not Available [facility] 9 11:32:50 Social History Question Answer Notes LastModified by Organizat ion Details LastModified Time Tobacco Smoking Status Former Smoker CONRAD BOYKIN, [place], [address], [place] [facility] 03/28/2019 21:39:42 Do You Have An Advance Directive? No Information not available 03/28/2019 What Is Your Code Status? Full Code Information not available 03/28/2019 How Many Days In The Past Year Have You Had A Heavy Drinking Consumption (4+ Female, 5+ Male)? 0 Information not available 03/28/2019 Within The Past 12 Months, Has It Happened That The Food You Bought Just Didn't Last And You Didn't Have Money To Get More. Normal Information not available 03/28/2019 Within The Past 12 Months, Have You Worried That Your Food Would Run Out Before You Got Money To Buy More. Yes Information not available 03/28/2019 Fall Risk: Do You Feel Unsteady When Standing Or Walking? No Information not available 03/28/2019 Marital Status Informatio n not available 03/28/2019 What Was The Date Of Your Most Recent Tobacco Screening? 03/28/2019 Information not available 05/10/2019 Sex: Unknown Functional Status None recorded. Mental Status None recorded. Family History Relationship Description Onset Age of this Age Resolved Age Notes LastModified by Organization Details LastModified Time Mother Hypertensive disorder [email or web address] Not available 2018 21:39:29 Medical History Condition Response Diabetes N Coronary Artery Disease N High Cholesterol Y Pulmonary Embolism N Cancer N Hypertension Y Stroke N COPD N Depression N Asthma N Kidney Disease N Gynecological HistoryNo gynecological history recorded. Obstetrics History GPAL:G 0 P 0 0 0 0 Past Encounters Encounter ID Performer Location Encounter Start Date Encounter Closed Date Diagnosis/Indication Diagnosis SNOMED-CT Code Diagnosis ICD10 Code Diagnosis Note [id number] CONRAD BOYKIN [facility] [address] [place] [address] 03/27/2019 11:27:16 03/28/2019 23:39:17 Dizziness present 170094083 R42 Vertigo 062938364 R42 Nausea 928520781 R11.0 Mild dehydration 6366404 119 108 E86.0 Health Concerns Section Related Observation LastModified by Organization Detai ls LastModified Time None Recorded Concern Status LastModified by Organization Details LastModified Time None Recorded Advance Directives Directive N: Payers Encounter Date Sequence Insurance Name Policy Number Policy Puentes Covered Member ID Puentes Member ID Guarantor Name 03/27/2019 1 MEDICARE [place]: [employer] Ama Hua [id number] Ama Hua 03/27/[address] [facility] OPT[facility] (MEDICARE SUPPLEMENT) Ama Hua [id number] Ama Hua Notes Date Note Type Note Provider Name and Address Organization Details Recorded Time 03/27/2019 text/html Mrs. Hua is a 73 yo female new to and this provider who presents with complain of dizziness and nausea. Patient reports that last week she started new medications for pain: tramadol and topiramate. She reports that right after staring those medications she developed nausea, dizziness, upset stomach, and loss of appetite. She stop taking those medications 2 days ago but symptoms persisted and her PCP office advised evaluation by provider. Patient denied headache, chest pain, shortness of breath, abdominal pain, vomiting, diarrhea, urinary symptoms.Comorbid ities: HLD, HTN, GERD, crohn's, eczema. CONRAD BOYKIN [address], [place], [address], [place] [facility] 03/28/2019 22:34:20 OBGyn Episode No OBEpisode recorded.
[2024-11-19 11:11] LABS: Basophils Percent Auto 0.2 % (0-2); Eosinophils Absolute Auto 0.2 X10*3/uL (0.0-0.4); Eosinophils Percent Auto 2.4 % (0-4); Hematocrit 34.4 % (37.0-47.0); Hemoglobin 10.9 g/dl (12.0-16.0); Imm Gran Abs Auto 0.04 X10*3/uL (0.00-0.03); Imm Gran Pct Auto 0.5 % (0.0-0.4); Lymphocytes Percent Auto 11.9 % (20-40); Mean Corpuscular HGB Conc 31.7 g/dl (31.0-35.0); Mean Corpuscular Hemoglobin 25.5 pg (27.0-33.0); Mean Corpuscular Volume 80.6 fL (80.0-98.0); Mean Platelet Volume 8.7 fL (9.4-12.3); Monocytes Absolute Auto 1.1 X10*3/uL (0.1-1.2); Monocytes Percent Auto 12.7 % (2-11); Neutrophils Absolute Auto 6.1 x10*3/uL (2.0-8.3); Neutrophils Percent Auto 72.3 % (45-73); Platelet Count 286 X10*3/uL (160-400); Red Blood Count 4.27 X10*6/uL (4.20-5.50); Red Cell Distribution Width 15.3 % (11.0-16.0); White Blood Count 8.4 X10*3/uL (4.8-10.8)
[2024-11-22 04:53] LABS: TS Negative Control Passed; TS Panel A 0; TS Panel B 0; TS Positive Control Passed; TSpotTB Negative (Negative)
== END 2024-11-19 10:20 | disposition home or self-care (01) ==
LOC: HO.LAB 10:19
PROVIDERS: PCP Internal Medicine; Visit Provider Internal Medicine
DX: J32.9 Chronic sinusitis, unspecified (principal); R05.9 Cough, unspecified
CPT/HCPCS: 36415; 70210; 85025; 86481; 87070; 87205; 99202

== ENCOUNTER → 2024-11-19 10:34 | Outpatient (BNV) | payer MEDICARE, SELFPAY | PROVIDERS: PCP Internal Medicine; Visit Provider Radiology Diagnostic Radiology | DX: J34.2 Deviated nasal septum (principal) | CPT/HCPCS: 70210 ==

== ENCOUNTER 2024-12-13 09:47 | Outpatient (AMB) | payer MEDICARE, SELFPAY ==
[2024-12-13 10:17] VITALS: BP 140/48; PULSE 66; O2SAT 98; BMI 19.8
--- NOTE | 2024-12-13 10:17 | MHC.OFFVIS ---
Vital Signs 12/13/24 10:17 Height 5 ft 1 in Weight 104 lb 11.513 oz BMI 19.8 BP 140/48 H Blood Pressure Location Lt brachial Position Sitting Pulse 66 Pulse Source Pulse Oximeter Pulse Oximetry (%) 98 Oxygen Delivery Method Room Air Intake Visit Reasons: Cough Intake Note: pt is here for follow up and states the cough is better, but there, sleeping is good, when using the inhaler she coughs more, when not using it, she does not cough. Cash Surrender Calculator Required: No Allergies ANTIBIOTICS Adverse Reaction (Mild, Uncoded 12/13/24 10:40) THRUSH Medication List - Last Reconciled 12/13/24 by Jem Perrin MD acetaminophen (Tylenol Extra Strength) 500 mg PO Q6H PRN acyclovir 400 mg PO BID albuterol sulfate 90 mcg/actuation 2 puffs inhalation Q6H PRN amiloride-hydrochlorothiazide 5-50 mg 1 tab PO DAILY calcium carbonate-vitamin D3 600 mg-10 mcg (400 unit) (Calcium 600 with Vitamin D3) tabs PO clopidogrel (Plavix) 75 mg PO DAILY cyanocobalamin (vitamin B-12) 1,000 mcg PO DAILY denosumab (Prolia) 60 mg subcut [id number] diclofenac sodium 1% (Arthritis Pain (diclofenac)) 2 grams topical QID estradiol 0.01%(0.1mg/gram) vaginal fluticasone propionate 50 mcg/actuation 1 spray intranasal BID indapamide 1.25 mg PO QAM meclizine 12.5 mg PO BID-QID PRN pantoprazole 40 mg PO DAILY pravastatin 10 mg PO BEDTIME vedolizumab (Entyvio) 300 mg IV Q6W Do you need a note to return to daycare/school/sports/work: No HPI HPI Cough: Details: THIS 79 YEARS OLD VERY 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 MY DIAGNOSIS WAS COUGH DUE TO HER RHINOSINUSITIS AND POSTNASAL DRIP, AND SHE IS PRONE TO HAVE ACUTE TRACHEOBRONCHITIS EVERY NOW AND THEN. SHE WAS TREATED WITH A COURSE OF DOXYCYCLINE 100 B.I.D. FOR 2 WEEKS, AND AFTER THAT SHE CLAIMS THAT COUGH IS MUCH BETTER AND LESS THAN BEFORE. SHE STILL HAS FEELING OF SOME POST NASAL CONGESTION. SHE HAS MILD COUGH ONLY WHEN SHE EXERTS. SHE WAS GIVEN ALBUTEROL INHALER TO USE P.R.N. FOR BOUTS OF COUGH BUT HE CLAIMS THAT IN FACT IT MAKES HER COUGH MORE, SO SHE STOPPED USING IT. SHE STILL USES FLONASE NASAL SPRAY 1 SPRAY EACH NOSTRIL B.I.D.. SHE HAS THE CHRONIC CROHN'S DISEASE, NOW DISCOVERED TO HAVE A MASS IN THE COLON MOST LIKELY NEOPLASM AND SHE WILL BE UNDERGOING COLON SURGERY. [facility] Medical History Sinusitis Cough Social History Patient Tobacco Use Status: Never used Tobacco Review of Systems Const All systems reviewed & are unremarkable except as noted in HPI and below Eyes Reports no additional complaints ENT Reports nasal discharge (CHRONIC ) Card Denies chest pain, Reports rapid heart rate and Denies leg edema Resp Reports as per HPI GI Reports heartburn (CHRONIC GERD SYMPTOMS) Reports no additional complaints Musc Reports no additional complaints Skin/Breast Reports system reviewed and no additional complaints, except as documented Neuro Reports no additional complaints Psych Reports no additional complaints Endo Reports no additional complaints Jerry/Lymph Reports no additional complaints Physical Exam Vital Signs: Last Vital Signs Pulse 66 12/13/24 10:17 BP 140/48 H 12/13/24 10:17 Pulse Ox 98 12/13/24 10:17 Oxygen Delivery Method Room Air 12/13/24 10:17 BMI result Body Mass Index 19.8 Const Other: PATIENT IS OF A THIN BUILD OTHERWISE HEALTHY LOOKING. HAD CONTINUED AND FREQUENT BOUTS OF COUGH DURING OFFICE VISIT. General: healthy appearing, comfortable, no acute distress, alert and awake Orientation/consciousness: patient oriented x3 HEENT Head: Yes normal to inspection General nose exam: No nasal polyps present and No nasal discharge present Face and sinus: Yes sinuses nontender Mouth: oropharynx normal Throat: Yes posterior oropharynx normal Eyes General: appearance normal, both eyes and all related structures Neck Neck: Yes normal visual inspection, Yes no lymphadenopathy, Yes trachea midline and Yes no JVD Thyroid: Thyroid normal Chest Chest palpation & inspection: normal inspection of the chest, normal palpation of entire chest wall and no tenderness Resp Other: PERCUSSION NOTE IS RESONANT. BREATH SOUNDS ARE ONLY SLIGHTLY DISTANT BUT. EQUAL ON BOTH SIDES THERE WERE NO CREPITATIONS OR WHEEZES. A FEW INSPIRATORY RHONCHI OVER THE LEFT BASE WERE HEARD. DURING AUSCULTATION SHE CONTINUE TO HAVE FREQUENT COUGH. Cardio Palpation: normal PMI Rate: regular rate Rhythm: regular rhythm Heart sounds: no gallops and no murmurs Peripheral pulses: Peripheral pulses 2+ throughout GI Palpation (GI): Soft to palpation, nontender, No hepatosplenomegaly present and no masses Auscultation: normal bowel sounds Back/Spine/Pelvis Thoracic/Lumbar Spine: thoracic and lumbar spine normal to inspection Skin General skin exam: no rashes or lesions noted Neuro General: patient oriented x3 and no focal motor deficits Cranial nerves: Yes CN's II-XII intact bilaterally Extrem General: Yes normal to inspection, Yes no clubbing, cyanosis or edema and Yes no calf tenderness Psych Appearance: grossly normal and well kempt Speech and movement: Normal speech and movement present Assessment & Plan Assessment & Plan (1) Cough: Comment: SHE HAS HAD CHRONIC COUGH, WITH FREQUENT FLARE UPS. HER PREVIOUS CT SCAN OF THE CHEST HAS NOT SHOWN ANY INTRINSIC LUNG DISEASE. SINUS X-RAYS ON HER LAST VISIT DID SHOW CHRONIC SINUSITIS. SHE HAS RESPONDED WELL TO 2 WEEKS COURSE OF DOXYCYCLINE. NOW HER COUGH IS MINIMAL, MAINLY BECAUSE OF CHRONIC RHINITIS AND POSTNASAL DISCARGE. Code(s): R05.9 - Cough, unspecified Category: Medical Plan: ADVISED TO USE OTC COUGH MEDICINE ONLY P.R.N. (2) Sinusitis: Comment: SHE HAS CHRONIC RHINO SINUSITIS, SHE DOES HAVE INTERMITTENT FLARE UPS OF SINUSITIS AND CAUSING COUGH AT THIS TIME SHE HAS BEEN TREATED WITH A COURSE OF DOXYCYCLINE AND IMPROVED.. Code(s): J32.9 - Chronic sinusitis, unspecified Category: Medical Plan: NO NEED OF ANYMORE ANTIBIOTIC. ADVISED TO STEAM INHALATION 2 OR 3 TIMES A DAY. CONTINUE TO USE FLONASE 1 SPRAY EACH NOSTRIL B.I.D.. NO NEED TO USE ALBUTEROL INHALER. Coding Level of Care Code Est Pt Level 3 (19998) Diagnoses Cough R05.9 Sinusitis J32.9
--- OUTSIDE RECORDS SUMMARY | 2024-12-13 11:14 | XMS_ITS | Clinical Summary ---
Author Organization [facility] Address [address] [place] [address] Care Team Providers Care Diesel Fitter Mechanic Name Role Phone Unavailable Primary Care Provider [...]
== END 2024-12-13 10:40 | disposition home or self-care (01) ==
PROVIDERS: PCP Nurse Practitioner Family; Visit Provider Internal Medicine
DX: R05.9 Cough, unspecified (principal); J32.9 Chronic sinusitis, unspecified
CPT/HCPCS: 99213

== ENCOUNTER → 2024-12-13 09:47 | Outpatient (BNVA) | payer MEDICARE, SELFPAY | PROVIDERS: PCP Nurse Practitioner Family; Visit Provider Internal Medicine | DX: R05.9 Cough, unspecified (principal); J32.9 Chronic sinusitis, unspecified | CPT/HCPCS: 99212 ==

== ENCOUNTER 2025-04-24 13:12 | Outpatient (AMB) | payer MEDICARE, SELFPAY ==
--- OUTSIDE RECORDS SUMMARY | 2025-04-20 23:59 | XMS_ITS | Continuity of Care Document ---
Author Organization [facility] Address [address] [place] [address]- Care Team Providers Care Geography Teacher Name Role Phone Joanna Julien NP [id number] [address] [place] [address]- Attending Physician: Not on Staff, Attending MD Referring Physician: Joanna Julien NP Encounter Type: [...] virus vaccine, inactivated 06/25/11 Give n SARS-CoV-2(COVID-19)mRNA-LNP vac([id number]) 09/09/24 Recorded SARS-CoV-2(COVID-19)mRNA-LNP vac([id number]) 09/21/23 Recorded pneumococcal 20-valent conjugate vaccine 4 05/06/23 Given tetanus/diphtheria/pertussis, acel(Tdap) 12/12/22 Given [id number] 12y+ bivalent booster vax 08/01/22 Recorded SARS-CoV-2 mRNA ([id number]) vax 03/09/22 Recorded SARS-CoV-2 (COVID-19) mRNA BNT-162b2 [...] Toxoid Vaccine (oldterm) 10/17/96 Given 1Result Comment: [id number] 2Result Comment: [07/11/2017] [facility] 3Result Comment: [07/11/2014] [facility] 4Result Comment: [id number] 5Location History: [facility] [phone] 6Result Comment: [11/04/2016] DOUBLE DOSE PER GI 7Result Comment: [11/04/2016] DOUBLE DOSE PER GI 8Result Comment: [03/07/2015] received here 9Admin Note: [employer] 07-13-13 10Admin Note: pt states administered at [facility] 11Admin Note: historical data Medications acetaminophen 325 mg oral capsule 2 capsule = 650 mg, By Mouth, 3 times a day, # 90 capsule, 4 Refills, Maintenance, 01/02/20 1:39:00 PM EDT, [facility], 157.48, cm, 12/17/19 13:10:00 EST, [...] 0 Refills, Maintenance, 10/24/24 8:57:00 AM EST, [facility] #[id number], 2 puffs Inhalation Every 6 hours,PRN:wheezing cough, 155, cm, 10/09/24 10:20:00 EST, Height, 50.1, kg, 09/22/24 12:51:00 EST, Dry Weight Start Date: 10/24/24 Status: Ordered Quantity: 18.0 Unit: g Repeat number: 1 Calcium / Vitamin D Combo Tablet 1 tablet, By Mouth, 2 times a day, 0 Refills, 12/13/05 2:17:58 PM EST Start Date: 12/13/05 Status: Ordered Repeat number: 1 carvedilol 12.5 mg oral tablet 12.5 mg, 1, tablet, By Mouth, 2 times a day, # 60 tablet, Refills 0, Tot. Refills 0, Maintenance, 02/26/25 1:13:00 PM EDT, Route to Pharmacy Electronically, [facility], Partial fill upon patient request if the prescription is for a schedule II opioid drug., 155, cm, 01/29/25 9:11:00 EDT, Height, 43.5, kg, 02/09/25 13:01:00 EDT, Dry Weight Start Date: 02/26/25 Status: Ordered Quantity: 60.0 Unit: tablet Repeat number: 1 [facility] By Mouth, Daily, 0 Refills, Maintenance, 06/15/24 2:14:00 PM EDT, Partial fill upon patient request if the prescription is for a schedule II opioid drug. Start Date: 06/15/24 Status: Ordered Repeat number: 1 clopidogrel 75 mg oral tablet 1, tablet, By Mouth, Daily, # 90 tablet, Refills 1, Maintenance, 01/01/25 9:12:00 AM EDT, Route to Pharmacy Electronically, [facility], 155, cm, 12/20/24 11:39:00 EST, Height, 47.7, kg, 12/15/24 12:54:00 EST, Dry Weight Start Date: 01/01/25 Status: Ordered Quantity: 90.0 Unit: tablet Repeat [...] using, # 16 Gm, 1 Refills, Maintenance, 12/20/24 11:40:00 AM EST, [place], [facility] #[id number], 155, cm, 12/20/24 11:39:00 EST, Height, 47.7, kg, 12/15/24 12:54:00 EST, Dry Weight Start Date: 12/20/24 Stop Date: 02/18/25 Status: Ordered Quantity: 16.0 Unit: g Repeat number: 2 loperamide 2 mg oral capsule See Instructions, Take 1 capsule by mouth in the morning (30 minutes before eating) and at bedtime., # 60 capsule, Refills 1, Tot. Refills 1, Maintenance, 03/29/25 12:23:00 PM EDT, Instructions Replace Required Details, Route to Pharmacy Electronically, [facility][id number], Partial fill uponpatient request if the prescription is for a schedule II opioid drug., 155, cm, 03/28/25 10:20:00 EDT, Height, 43, kg, 03/16/25 6:53:00 EDT, Dry Weight Start Date: 03/29/25 Status: Ordered Quantity: 60.0 Unit: capsule Repeat number: 2 oxyCODONE 5 mg oral tablet 5 mg, 1, tablet, By Mouth, Every 6 hours, PRN, # 12 tablet, Refills 0, Tot. Refills 0, Maintenance,Pain , Moderate, 01/29/25 8:58:00 AM EDT, Route to Pharmacy Electronically, [facility], Partial fill upon patient request if the prescription is for a schedule II opioid drug., 155, cm, 01/29/25 7:19:00 EDT, Height, 47.4, kg, 01/23/25 17:19:00 EDT, Dry Weight Start Date: 01/29/25 Status: Ordered Quantity: 12.0 Unit: tablet Repeat number: 1 pantoprazole 40 mg oral delayed release tablet 1 tablet = 40 mg, By Mouth, Daily, for 90 days, # 90 tablet, 3 Refills, Hard Stop 12/19/25 3:14:00 PMEST, 12/24/24 3:14:00 PM EDT, 155, cm, 12/20/24 11:39:00 EST, Height, 47.7, kg, 12/15/24 12:54:00 EST, Dry Weight Start Date: 12/24/24 Stop Date: 12/19/25 Status: Ordered Quantity: 90.0 Unit: tablet Repeat number: 4 pravastatin 10 mg oral tablet 1 tablet, By Mouth, Daily at bedtime, # 90 tablet, 1 Refills, Maintenance, 02/21/25 2:16:00 PM EDT, [facility], 155, cm, 01/29/25 9:11:00 EDT, Height, 43.5, kg, 02/09/25 13:01:00 EDT, Dry Weight Start Date: 02/21/25 Status: Ordered Quantity: 90.0 Unit: tablet Repeat number: 1 prednisolone ophthalmic acetate 1% suspension 1 drops, Eyes, Both, Daily, # 5 mL, 0 Refills, Maintenance, 08/17/21 2:36:00 PM EDT, [facility], Partial fill upon patient request if the prescription is for a schedule II opioid drug. Start Date: 08/17/21 Stop Date: 08/27/21 Status: Ordered Quantity: 5.0 Unit: mL Repeat number: 1 Probiotic Formula (Bacillus Coagulans) oral capsule 1 capsule, By Mouth, Daily, # 30 capsule, 0 Refills, Maintenance, 03/25/25 1:37:00 PM EDT, Capsule, [facility] #[id number], 1 capsule By Mouth Daily, 155, cm, 03/25/25 13:03:00 EDT, Height, 43, kg, 03/16/25 6:53:00 EDT, Dry Weight Start Date: 03/25/25 Status: Ordered Quantity: 30.0 Unit: capsule Repeat number: 1 Prolia 60 mg/mL subcutaneous [...] Effective Dates Status H ealth Status Informant Adenocarcinoma, colon Confirmed Active Dry mouth 1 Confirmed Active Atrophic vaginitis [...] in household: Yes entered on: 08/21/14 Sex Sex Representation Female (finding) Patient Care team information Care Team Personnel Name: Devi Hector RN Position: [facility] RN Member Role: Primary Care Nurse Name: Shobha Dias RN Position: [facility] AMB Nurse Member Role: Primary Care Nurse Name: Brittney Goldstein RN Position: [facility] RN Member Role: Primary Care Nurse Name: Celestina King RN Position: [facility] RN Member Role: Primary Care Nurse Name: Joanna Julien NP Position: [facility] PCO Associate Professional Member Role: PCP Address: [address] [place] [address]- Telecom: Name: Michelle Cline RN Position: [facility] MR W/ Merge Member Role: Primary Care Nurse Name: Susan Ventura RN Position: [facility] Onco RN Member Role: Primary Care Nurse Name: Lindsey Fletcher RN Position: [facility] RN Member Role: Primary Care Nurse Name: Kamila Murphy RN Position: [facility] RN Member Role: Primary Care Nurse Name: Emily Abdalla RN Position: [facility] RN Member Role: Primary Care Nurse Name: Sanna Barajas RN Position: [facility] RN Member Role: Primary Care Nurse Name: Lianet Mcfadden RN Position: [facility] AMB Nurse Member Role: Primary Care Nurse Name: Kenny Quinonez RN Position: [facility] RN Member Role: Primary Care Nurse Name: Maya Oliva RN Position: [facility] RN Member Role: Primary Care Nurse Name: Presley Gama RN Position: [facility] RN Member Role: Primary Care Nurse Care Team Related Persons Name: CLINTSHAILESH PARADA Name: CONCETTA PUENTES Name: RHEA PUENTES Insurance Providers Guarantor name: MAXIME PUENTES Health Plan Information #: 1 Payer: MEDICARE B Payer Identifier: Member Number: [id number] Group Number: Subscriber Identifier: [id number] Relationship to Subscriber: self Coverage Type: Coverage Verification Date: Telecom: NA Address: Health Plan Information #: 2 Payer: [facility] SECONDARY ONLY Payer Identifier: CARIN Member Number: [id number] Group Number: Subscriber Identifier: [id number] Relationship to Subscriber: self Coverage Type: MEDICARE Coverage Verification Date: Telecom: Address:
--- OUTSIDE RECORDS SUMMARY | 2025-04-21 23:59 | XMS_ITS | Continuity of Care Document ---
Author Organization [facility] ter Address [address] [place] [address]- Care Team Providers Care Manager Enterprise Content Management Name Role Phone Anaya KATEY, Joanna Lafleur Primary Care Physician [phone] [facility] [id number] Date(s): 03/22/25 - 04/21/[address] [address]- Attending Physician: Not on Staff, Attending MD Admitting Physician: Not on Staff, Admitting MD Referring Physician: Not on Staff, Referring MD Encounter Type: Pre-Outpt Allergies, Adverse Reactions, Alerts Substance Criticality Severity [...] virus vaccine, inactivated 06/25/11 Give n SARS-CoV-2(COVID-19)mRNA-LNP vac([id number]) 09/09/24 Recorded SARS-CoV-2(COVID-19)mRNA-LNP vac([id number]) 09/21/23 Recorded pneumococcal 20-valent conjugate vaccine 4 05/06/23 Given tetanus/diphtheria/pertussis, acel(Tdap) 12/12/22 Given [id number] 12y+ bivalent booster vax 08/01/22 Recorded SARS-CoV-2 mRNA ([id number]) vax 03/09/22 Recorded SARS-CoV-2 (COVID-19) mRNA BNT-162b2 [...] Toxoid Vaccine (oldterm) 10/17/96 Given 1Result Comment: [id number] 2Result Comment: [07/11/2017] [facility] 3Result Comment: [07/11/2014] [facility] 4Result Comment: [id number] 5Location History: [facility] [phone] 6Result Comment: [11/04/2016] DOUBLE DOSE PER GI 7Result Comment: [11/04/2016] DOUBLE DOSE PER GI 8Result Comment: [03/07/2015] received here 9Admin Note: [employer] [facility] 07-13-13 10Admin Note: pt states administered at [facility] 11Admin Note: historical data Medications acetaminophen 325 mg oral capsule 2 capsule = 650 mg, By Mouth, 3 times a day, # 90 capsule, 4 Refills, Maintenance, 01/02/20 1:39:00 PM EDT, [facility], 157.48, cm, 12/17/19 13:10:00 EST, [...] 0 Refills, Maintenance, 10/24/24 8:57:00 AM EST, [facility] #[id number], 2 puffs Inhalation Every 6 hours,PRN:wheezing cough, 155, cm, 12/24/24 10:20:00 EST, Height, 50.1, kg, 09/22/24 12:51:00 [...] 1 Refills, Maintenance, 12/20/24 11:40:00 AM EST, [place], [facility] #[id number], 155, cm, 12/20/24 11:39:00 EST, Height, 47.7, [...] Replace Required Details, Route to Pharmacy Electronically, [facility] #[id number], Partial fill uponpatient request if the prescription [...] 8:58:00 AM EDT, Route to Pharmacy Electronically, [facility], Partial fill upon patient request if [...] Refills, Maintenance, 03/25/25 1:37:00 PM EDT, Capsule, [facility] #[id number], 1 capsule By Mouth Daily, 155, cm, [...] Team Personnel Name: Devi Hector RN Position: [facility] RN Member Role: Primary Care Nurse Name: Shobha Dias RN Position: [facility] AMB Nurse Member Role: Primary Care Nurse Name: Brittney Goldstein RN Position: [facility] RN Member Role: Primary Care Nurse Name: Celestina King RN Position: [facility] RN Member Role: Primary Care Nurse Name: Joanna Julien NP Position: [facility] PCO Associate Professional Member Role: PCP Address: [address] [place] [address]- Telecom: Name: Michelle Cline RN Position: [facility] MR W/ Merge Member Role: Primary Care Nurse Name: Susan Ventura RN Position: [facility] Onco RN Member Role: Primary Care Nurse Name: Lindsey Fletcher RN Position: [facility] RN Member Role: Primary Care Nurse Name: Kamila Murphy RN Position: [facility] RN Member Role: Primary Care Nurse Name: Emily Abdalla RN Position: [facility] RN Member Role: Primary Care Nurse Name: Sanna Barajas RN Position: [facility] RN Member Role: Primary Care Nurse Name: Lianet Mcfadden RN Position: [facility] AMB Nurse Member Role: Primary Care Nurse Name: Kenny Quinonez RN Position: [facility] RN Member Role: Primary Care Nurse Name: aMya Oliva RN Position: [facility] RN Member Role: Primary Care Nurse Name: Presley Gama RN Position: [facility] RN Member Role: Primary Care Nurse Care Team Related Persons Name: CLINTSHAILESH PARADA Name: CONCETTA PUENTES Name: RHEA PUENTES Insurance Providers Guarantor name: MAXIME PUENTES Health Plan Information #: 1 Payer: MEDICARE B Payer Identifier: CARIN Member Number: [id number] Group Number: Subscriber Identifier: [id number] Relationship to Subscriber: self Coverage Type: Coverage Verification Date: Telecom: Address: [facility] Information #: 2 Payer: [facility] SECONDARY ONLY Payer Identifier: CARIN Member Number: [id number] Group Number: Subscriber Identifier: [id number] Relationship to Subscriber: self Coverage Type: MEDICARE Coverage Verification Date: Telecom: Address:
--- NOTE | 2025-04-24 13:21 | A.OFFVIS_ITS ---
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: No Allergies ANTIBIOTICS Adverse Reaction (Mild, Uncoded 04/24/25 13:30) THRUSH Medication List - Last Reconciled 04/24/25 by Jem Perrin MD acetaminophen (Tylenol Extra Strength) 500 mg PO Q6H PRN acyclovir 400 mg PO BID albuterol sulfate 90 mcg/actuation 2 puffs inhalation Q6H PRN calcium carbonate-vitamin D3 600 mg-10 mcg (400 unit) (Calcium 600 with Vitamin D3) tabs PO carvedilol 12.5 mg PO BID clopidogrel (Plavix) 75 mg PO DAILY cyanocobalamin (vitamin B-12) 1,000 mcg PO DAILY denosumab (Prolia) 60 mg subcut [id number] diclofenac sodium 1% (Arthritis Pain (diclofenac)) 2 grams topical QID fluticasone propionate 50 mcg/actuation 1 spray intranasal BID indapamide 1.25 mg PO QAM meclizine 12.5 mg PO BID-QID PRN pantoprazole 40 mg PO DAILY pravastatin 10 mg PO BEDTIME vedolizumab (Entyvio) 300 mg IV Q6W vedolizumab (Entyvio) 300 mg IV Q6W Do you need a note to return to daycare/school/sports/work: No HPI HPI cough: Details: MAXIME IS 80 YEARS OLD VERY PLEASANT LADY. SHE DID HAVE COLON RESECTION FOR COLON CANCER IN JANUARY OF THIS YEAR AND HAS RECOVERED WELL. SHE CONTINUES TO HAVE RECURRENT BOUTS OF COUGH . AND NOW WITH EACH BOUT OF COUGH SHE IS GETTING WEAK AND TIRED. LOT OF TALKING OR AFTER THE MEALS SHE GETS MORE COUGH. MAXIME IS A KNOWN CASE OF CHRONIC RHINOSINUSITIS, WITH RECURRENT FLARE UPS. SHE HAS ACHALASIA OF THE ESOPHAGUS BUT A RECENT ENDOSCOPY BEFORE SHE HAD COLON RESECTION, WAS REPORTED TO SHOW NO OBSTRUCTION. SHE ALSO HAS CROHN'S DISEASE FOR WHICH SHE IS BEING TREATED LATELY SHE HAS HAD INTERMITTENT DIZZINESS DUE TO LOW BLOOD PRESSURE . SHE HAS LOST SIGNIFICANT AMOUNT OF WEIGHT AFTER THE SURGERY AND HAS NOT BEEN ABLE TO REGAIN. SHE HAS BEEN SEEN IN THE EMERGENCY ROOM AND AT HER PCP OFFICE WITH INCREASED COUGH. CT SCAN OF THE CHEST PERFORMED AT [facility] ON 04/18/2025, HAS SHOWN A PATCH OF ATELECTASIS AT THE RIGHT BASE, I DO NOT THINK IT IS PNEUMONIA. SHE HAS VERY SMALL BIBASILAR EFFUSIONS. SHE HAS EVIDENCE OF TREE IN BUD CHANGES AND NODULAR OPACITIES IN THE LINGULAR SEGMENT OF LEFT UPPER LOBE PATIENT HAS TRIED TO USE ALBUTEROL INHALER, BUT CLAIMS THAT THIS DOES NOT PRODUCE ANY RELIEF. SHE HAS A FEELING THAT SHE IS NOT ABLE TO EXPECTORATES MUCH MUCUS. [facility] Medical History (Updated 04/24/25 @ 14:07 by Jem Perrin MD) Atelectasis of both lungs Sinusitis Cough Social History Patient Tobacco Use Status: Never used Tobacco Review of Systems Const All systems reviewed & are unremarkable except as noted in HPI and below Eyes Reports no additional complaints ENT Reports nasal discharge (CHRONIC ) Card Denies chest pain, Reports rapid heart rate and Denies leg edema Resp Reports as per HPI GI Reports heartburn (CHRONIC GERD SYMPTOMS) Reports no additional complaints Musc Reports no additional complaints Skin/Breast Reports system reviewed and no additional complaints, except as documented Neuro Reports no additional complaints Psych Reports no additional complaints Endo Reports no additional complaints Jerry/Lymph Reports no additional complaints Physical Exam Vital Signs: Last Vital Signs Pulse 71 04/24/25 13:22 BP 142/50 H 04/24/25 13:22 Pulse Ox 95 04/24/25 13:22 Oxygen Delivery Method Room Air 04/24/25 13:22 BMI result Body Mass Index 17.3 Const Other: PATIENT IS OF A THIN BUILD , HAS THE SIGNIFICANT WEIGHT LOSS.. AND LOOKS WEAKER IN GENERAL HAD CONTINUED AND FREQUENT BOUTS OF COUGH DURING OFFICE VISIT. General: no acute distress, alert and awake Orientation/consciousness: patient oriented x3 HEENT Head: Yes normal to inspection General nose exam: No nasal polyps present and No nasal discharge present Face and sinus: Yes sinuses nontender Mouth: oropharynx normal Throat: Yes posterior oropharynx normal Eyes General: appearance normal, both eyes and all related structures Neck Neck: Yes normal visual inspection, Yes no lymphadenopathy, Yes trachea midline and Yes no JVD Thyroid: Thyroid normal Chest Chest palpation & inspection: normal inspection of the chest, normal palpation of entire chest wall and no tenderness Resp Other: PERCUSSION NOTE IS RESONANT. BREATH SOUNDS ARE ONLY SLIGHTLY DISTANT BUT. EQUAL ON BOTH SIDES THERE ARE A FEW CREPS OVER THE RT BASE . DURING AUSCULTATION SHE CONTINUE TO HAVE FREQUENT COUGH. Cardio Palpation: normal PMI Rate: regular rate Rhythm: regular rhythm Heart sounds: no gallops and no murmurs Peripheral pulses: Peripheral pulses 2+ throughout GI Palpation (GI): Soft to palpation, nontender, No hepatosplenomegaly present and no masses Auscultation: normal bowel sounds Back/Spine/Pelvis Thoracic/Lumbar Spine: thoracic and lumbar spine normal to inspection Skin General skin exam: no rashes or lesions noted Neuro General: patient oriented x3 and no focal motor deficits Cranial nerves: Yes CN's II-XII intact bilaterally Extrem General: Yes normal to inspection, Yes no clubbing, cyanosis or edema and Yes no calf tenderness Psych Appearance: grossly normal and well kempt Speech and movement: Normal speech and movement present Office Procedures Nebulizer Treatment Nebulizer Treatment [id number]/MDI RX initial, or Nebulizer Subsequent Treatment Office Meds ipratropium 0.5 mg-albuterol 3 mg (2.5 mg base)/3 mL nebulization soln Performing Provider: Jem Perrin MD Performing Location: [facility] Pul[facility]ology Services Administered by: Jessica Lipscomb LPN on 04/24/25 14:00 Dose Route Admin Location Dispensed Lot Number Expiration Date [facility] Reservoir Engineer 3 mL inhalation 3 mL [id number] 08/16/26 [id number] [employer] Results Reviewed Results Reviewed: I REVIEWED THE FINDINGS OF CT SCAN OF THE CHEST DONE AT [facility] ON 04/18/2025 SMALL BILATERAL PLEURAL EFFUSIONS, NOT SIGNIFICANT. LEFT UPPER LOBE LINGULAR SEGMENT SHOWS TREE-IN-BUD NODULAR INFILTRATE PROBABLY INFECTIOUS. THERE IS RIGHT MIDDLE LOBE CONSOLIDATION AT THE RIGHT BASE WHICH APPEARS LIKE ATELECTASIS Assessment & Plan Assessment & Plan (1) Cough: Comment: SHE HAS HAD CHRONIC COUGH, WITH FREQUENT FLARE UPS. HER PREVIOUS CT SCAN OF THE CHEST HAS NOT SHOWN ANY INTRINSIC LUNG DISEASE. SINUS X-RAYS ON HER LAST VISIT DID SHOW CHRONIC SINUSITIS. SHE HAS RESPONDED WELL TO 2 WEEKS COURSE OF DOXYCYCLINE. SHE HAS INCREASED COUGH FOR THE PAST FEW WEEKS., AFTER BOUTS OF COUGH SHE FEELS LIKE HAVING BRONCHOSPASMS. SHE IS NOT BENEFITING FROM ALBUTEROL INHALER. Code(s): R05.9 - Cough, unspecified Category: Medical Plan: I THINK SHE WILL DO BETTER BY USING IPRATROPIUM-ALBUTEROL SOLUTION IN THE NEBULIZER Q 6 HOURS P.R.N. BUT AT LEAST TWICE A DAY WE HAVE GIVEN HER A UPDRAFT TREATMENT IN THE OFFICE. GIVEN A NEBULIZER FROM THE OFFICE . SHE TOLERATED IT WELL AND FELT BETTER. ALSO I WILL SEND PRESCRIPTION FOR IPRATROPIUM-ALBUTEROL SOLUTION TO HER PHARMACY. (2) Atelectasis of both lungs: Comment: SHE SEEMS TO HAVE PATCHY ATELECTASIS IN THE LEFT LINGULAR LOBE AND AT THE RIGHT BASE. ALSO HAS TREE IN BUD TYPE OF NODULAR INFILTRATES, PROBABLY SECONDARY TO BRONCHIECTASIS. Code(s): J98.11 - Atelectasis Category: Medical Plan: I WOULD TREAT HER WITH DOXYCYCLINE 100 B.I.D. FOR 10 DAYS, FOR POSSIBLE INFECTION. SHE HAS TOLERATED DOXYCYCLINE QUITE WELL IN THE PAST. (3) Sinusitis: Comment: SHE HAS CHRONIC RHINO SINUSITIS, SHE DOES HAVE INTERMITTENT FLARE UPS OF SINUSITIS AND CAUSING COUGH Code(s): J32.9 - Chronic sinusitis, unspecified Category: Medical Plan: DOXYCYCLINE 100 B.I.D. FOR 10 DAYS NOTED ABOVE. NASAL RINSES AND STEAM INHALATIONS 2 OR 3 TIMES A DAY Orders: Orders AMB Nebulizer Treatment Today R05.9 - Cough, unspecified Medications: New doxycycline hyclate 100 mg PO BID 20 tabs 0RF SINUSITIS/ PNEUMONITIS 10 days ipratropium-albuterol 0.5 mg-3 mg(2.5 mg base)/3 mL 3 mL inhalation Q6H PRN 180 mL 2RF wheezing.COUGH /MUCOUS 30 days Coding Level of Care Code Est Pt Level 3 (28607) Diagnoses Cough R05.9 Atelectasis of both lungs J98.11 Sinusitis J32.9 CPT Codes Nebulizer Treatment - Nebulizer Treatment, initial or subsequent: 41031- Nebulizer/MDI RX initial, or Nebulizer Subsequent Treatment ([id number])
[2025-04-24 13:22] VITALS: BP 142/50; PULSE 71; O2SAT 95; BMI 17.3
--- OUTSIDE RECORDS SUMMARY | 2025-04-24 14:02 | XMS_ITS | Patient Health Record ---
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 Name Role Phone Rose ZHAO, Kael Primary Care Provider Zay Abel Unavailable [phone] Allergies Allergen (clinical drug ingredient) Drug/Non Drug Allergy documented on EMR Reaction Allergy Type Onset Date Status most antibiotics (uncoded) thrush Allergy Active losartan Losartan Potassium dizziness, headaches Drug Allergy Active Penicillin thrush Drug Allergy Active Reason For Referral No Information Medications Medication SIG (Take, Route, Fr equency, Duration) Notes Start Date End Date Status Indapamide Active Vitamin B12 Active Meclizine HCl Active aMILoride HCl Active Plavix Active Pravastatin Sodium A ctive Calcium + D Active Citrucel Active Tylenol Active Atenolol Active oxyBUTYnin Chloride Active PriLOSEC Active Problems Problem Type SNOMED Code ICD Code Onset Dates Problem Status W/U Status Risk Notes Problem Dermatitis (748704789) Dermatitis (692.9) Active confirmed Problem Disorder of joint of ankle and/or foot (951174760) Arthritis - Degenerative (719.97) Active confirmed Problem Pain in limb (99447018) Pain in Limb (729.5) Active confirmed Problem Pain in limb (29149207) Pain in Limb (729.5) Active confirmed Problem Paronychia (03624866) Paronychia (681.11) Active confirmed Problem Tinea pedis (8438564) Tinea Pedis (110.4) Active confirmed Problem Exostosis (00096866) Exostosis (726.91) Active confirmed Plan Of Treatment Pending Test Test Name Order Date X ray : Foot, right 3V 06/29/2012 47768-Uzhdyiap Plate 05/31/2012 [id number] 06/17/2011 94054- Debride <25 sq cm 07/15/2011 06287- Debride <25 sq cm 09/06/2011 75541- Debride <25 sq cm 12/15/2011 25477- Debride <25 sq cm 05/31/2012 14196- Debride <25 sq cm 06/15/2012 09734- Debride <25 sq cm 10/18/2012 40830 I&D ABSCESS- SIMPLE,SINGLE 012 Insurance Providers Payer Name Payer Address Payer Phone Subscriber Number Group Number Insured Name Patient Relationship to Insured Coverage Start Date Coverage End Date Medicare National Govt Sv[employer] [address] [facility] [place] [address] [id number] Ama Hua Self - patient is the insured 8 AARP Secondary to Medicare [address] [place] [address] [id number] Ama Hua Self - patient is the insured Medical (General) History Medical History History ICD Code CAD (cholesterol) warts sinus conditions psoriasis osteoporosis keloids hypertension hernia gall bladder problems chicken pox diverticulitis Surgical History Surgery Date(Month/Year) cholecystectomy 1994 hysterectomy 2006 rectal and sphincter repair 2006
--- OUTSIDE RECORDS SUMMARY | 2025-04-24 14:02 | XMS_ITS | Data Portability ---
Author Organization [place] [facility] 234 beds at the [facility] Address [address] [place] [phone] Assessment Encounter Date Assessment Date Assessment LastModified [...] I have accessed patient records on the [facility]. This information was pertinent in my medical decision making today. Time On Scene with Patient: 01:02:38 gallo Not available 03/28/2019 22:34:15 Plan of Treatment Reminders Order Date Submit Date Provider Last Modified By Organization Details Last Modified Time Details Appointments None recorded. Lab BMP + ionized calcium, serum or plasma 2018 019 [facility] [place], [address] [place], [address], 9 12:25:35 urinalysis , dipstick 2018 019 [facility], [address] [place], [address], 9 22:16:43 Referral None recorded. Procedures None recorded. Surgeries None recorded. Imaging None recorded. Medication Orders meclizine 25 mg tablet 2018 019 [facility], [address] [place] [address], [address], 9 12:25:35 sodium chloride 0.9 % intravenou s solution 2018 019 [facility], [address] [place] [address], [address], 9 12:25:35 Zofran 4 mg tablet 2018 019 [facility], [address] [place] [address], [address], 9 12:25:39 Zofran 2 mg/mL intravenou s solution 2018 019 [email or web address] Not available 9 16:50:32 Patient TargetsNo targets recorded. Patient Instructions Encounter Date Encounter Id Patient Instructions Last Modified By Organization Details Last Modified Time 03/27/2019 [id number] rhythm strip, EKG* [email or web address] Not availa ble [...] TYLENOL Thank you for your visit with [facility] today. We cannot always find [...] in your condition between 8am-10pm, please call [facility] at [phone] to help navigate your care. [email or web address] Not available 03/27/2019 12:25:32 Reason for Referral None Reported. Results Created Date Observation Date Name Description Value Unit Range Abnormal Flag Note LastModifiedBy Organization Detail LastModifiedTime 03/28/2003/28/2019 urina lysis , dipst ick Appearance clear Not Available [facility] [address] [place], [address], 03/28/2019 22:15:44 03/28/2003/28/2019 urina lysis , dipst ick Color yellow Not Available [facility] - [place] [address] [place], [address], 03/28/2019 22:15:44 03/28/2003/28/2019 urina lysis , dipst ick Glucose negati ve Not Available Spr - Home [address] [place], [address], 03/28/2019 22:15:44 03/28/2003/28/2019 urina lysis , dipst ick Bilirubin negati ve Not Available Spr - Home [address] [place], [address], 03/28/2019 22:15:44 03/28/2003/28/2019 urina lysis , dipst ick Ketones NEG Not Available Spr - Home [address] [place], [address], 03/28/2019 22:15:44 03/28/2003/28/2019 urina lysis , dipst ick Sp. [place] 1.020 Not Available Spr - Home [address] [place], [address], 03/28/2019 22:15:44 03/28/2003/28/2019 urina lysis , dipst ick Blood NEG Not Available Spr - Home [address] [place], [address], 03/28/2019 22:15:44 03/28/2003/28/2019 urina lysis , dipst ick pH 5.0 Not Available Spr - Home [address] [place], [address], 03/28/2019 22:15:44 03/28/2003/28/2019 urina lysis , dipst ick Protein negati ve Not Available Spr - Home [address] [place], [address], 03/28/2019 22:15:44 03/28/2003/28/2019 urina lysis , dipst ick Urobilirubin negati ve Not Available Spr - Home [address] [place], [address], 03/28/2019 22:15:44 03/28/2003/28/2019 urina lysis , dipst ick Nitrites NEG Not Available Spr - [place] [address] [place], [address], 03/28/2019 22:15:44 03/28/2003/28/2019 urina lysis , dipst ick Leukocytes NEG Not Available [facility] - [facility] [address] [place], [address], 03/28/2019 22:15:44 03/27/2003/27/2019 BMP + ioniz ed calci um, serum or plasm a Na 138 mmol/ L 136-14 5 Not Available Spr - Home [address] [place], [address], 03/27/2019 11:57:03 03/27/2003/27/2019 BMP + ioniz ed calci um, serum or plasm a K 4.7 mmol/ L 3.5-5. 1 Not Available Spr - Home [address] [place], [address], 03/27/2019 11:57:03 03/27/2003/27/2019 BMP + ioniz ed calci um, serum or plasm a cL 101 mmol/ L 96-111 Not Available Spr - Home [address] [place], [address], 03/27/2019 11:57:03 03/27/2003/27/2019 BMP + ioniz ed calci um, serum or plasm a ica 1.16 mmol/ L 1.1-1. 4 Not Available Spr - Home [address] [place], [address], 03/27/2019 11:57:03 03/27/20 19 03/27/2019 BMP + ioniz ed calci um, serum or plasm a TCO2 25 mmol/ L 20-30 Not Available Spr - Home [address] [place], [address], 03/27/2019 11:57:03 03/27/2003/27/2019 BMP + ioniz ed calci um, serum or plasm a glu 102 mg/dL 70-115 Not Available Spr - Home [address] [place], [address], 03/27/2019 11:57:03 03/27/2003/27/2019 BMP + ioniz ed calci um, serum or plasm a BUN 28 mg/dL 6-24 Not Available Spr - Home [address] [place], [address], 03/27/2019 11:57:03 03/27/2003/27/2019 BMP + ioniz ed calci um, serum or plasm a crea 1.1 mg/dL .65-1. 36 Not Available Spr - Home [address] [place], [address], 03/27/2019 11:57:03 03/27/2003/27/2019 BMP + ioniz ed calci um, serum or plasm a HCT 39 %_pcv 40.6-5 0.3 Not Available Spr - Home [address] [place], [address], 03/27/2019 11:57:03 03/27/2003/27/2019 BMP + ioniz ed calci um, serum or plasm a Hb 13.3 g/dL 13.9-1 7.4 Not Available Spr - Home [address] [place], [address], 03/27/2019 11:57:03 03/27/2003/27/2019 BMP + ioniz ed calci um, serum or plasm a angap 17 mmol/ L 6-18 Not Available Spr - Home [address] [place], [address], 03/27/2019 11:57:03 04/03/20 19 elect bakari gonzalez am No observ ation record ed. Not Available 2018 15:09:34 Result Notes None recorded. Procedures Surgical History Date Name Laterality Status Provider Name and Address Organization Details Recorded Time 03/27/20 19 IV Start Procedure - [facility] [place], [address], [place] [facility] 03/28/2019 21:54:00 03/27/20 19 ECG Interpretation - [facility] [place], [address], [place] [facility] 03/28/2019 21:14:12 Imaging Results None recorded. Procedure Notes None recorded. Medical Equipment None Reported. Allergies Allergen ID Allergen Name Allergen Category Reaction Reaction Severity Criticality Documentation Date Start Date Code Code System Note Provider Name and Address Organization Details Recorded Time 82621 Product containin g penicilli n (product) medicatio n Not available Not available Not available 03/27/2019 06261 8001 SNOMED [place], [address], [place] [facility] 9 11:30:30 88736 Fosamax medicatio n Not available Not available Not available 03/27/2019 83905 5 RxNorm [place], [address], [place] [facility] 9 11:31:00 52198 trazodone medicatio n Not available Not available Not available 03/27/2019 67670 RxNorm [place], [address], [place] [facility] 9 11:31:22 04349 Remeron medicatio n Not available Not available Not available 03/27/2019 06261 4 RxNorm [place], [address], [place] [facility] 9 11:31:42 79600 clonidine medicatio n Not available Not available Not available 03/27/2019 2599 RxNorm CONRAD BOYKIN [address], [place], [address], [place] [facility] 9 11:31:55 06504 metoprolo l Not available Not available Not available Not available 03/27/2019 6918 RxNorm MAKENZIE GETACHEWJEANIE, PA [address], [place], [address], [place] [facility] 9 11:32:11 26689 losartan medicatio n Not available Not available Not available 03/27/2019 93007 RxNorm MAKENZIE YUJEANIE, PA [address], [place], [address], [place] [facility] 9 11:32:18 24004 amlodipin e medicatio n Not available Not available Not available 03/27/2019 88833 RxNorm CONRAD BOYKIN [address], [place], [place], [address], [place] [facility] 9 11:32:35 07572 lisinopri l medicatio n Not available Not available Not available 03/27/2019 35176 RxNorm CONRAD BOYKIN [address], [place], [place], [address], [place] [facility] 9 11:32:42 95381 spironola ctone medicatio n Not available Not available Not available 03/27/2019 9997 RxNorm CONRAD BOYKIN [address], [place], [place], [address], [place] [facility] 9 11:32:58 46369 Remicade medicatio n Not available Not available Not available 03/27/2019 40379 0 RxNorm CONRAD BOYKIN [address], [place], [place], [address], [place] [facility] 9 11:33:13 74202 nortripty line medicatio n Not available Not available Not available 03/27/2019 7531 RxNoCONRAD [place] [address] [place], [address], [place] [facility] 9 11:33:43 Medications Name Sig Start Date [...] blood by Pulse oximetry Respiratory rate Systolic And Diastolic Systolic And Diastolic Provider Name and Address Organization Details Last Updated DateTime 9 56 /min 97.6 [degF] 98 % 98 % 20 /min 160/60 mm[Hg] 152/56 mm[Hg] Not Available [facility] 9 11:32:50 Social History Question Answer Notes LastModified by Organizat ion Details LastModified Time Tobacco Smoking Status Former Smoker CONRAD BOYKIN [address], [place], [address], [place] [facility] 03/28/2019 21:39:42 Do You [...] Response Diabetes N Coronary Artery Disease N Cancer N Stroke N Asthma N COPD N Depression N High Cholesterol Y Pulmonary Embolism N Hypertension Y Kidney Disease N Gynecological HistoryNo gynecological history recorded. Obstetrics History GPAL:G 0 P 0 0 0 0 Past Encounters Encounter ID Performer Location Encounter Start Date Encounter Closed Date Diagnosis/Indication Diagnosis SNOMED-CT Code Diagnosis ICD10 Code Diagnosis Note [id number] CONRAD BOYKIN [facility] [address] [place] [address] 03/27/2019 11:27:16 03/28/2019 23:39:17 Dizziness present 390509933 R42 Vertigo 219335213 R42 Nausea 461572053 R11.0 Mild dehydration 9753232 119 108 E86.0 Health Concerns Section Related Observation LastModified by Organization Detai ls LastModified Time None Recorded Concern Status LastModified by Organization Details LastModified Time None Recorded Advance Directives Directive N: Payers Insurance Date Sequence Insurance Name Policy Number Policy Puentes Covered Member ID Puentes Member ID Guarantor Name 03/27/2019 1 MEDICARE B-MD: [employer] Ama Hua [id number] Ama Hua 03/27/2019 1 *SELF PAY* Ama Hua [id number] Ama Hua 03/27/2019 2 AARP (MEDICARE SUPPLEMENT) Ama Hua [id number] Ama Hua 03/29/2019 1 MEDICARE B-MD: [employer] Ama Hua [id number] Ama Hua Notes Date Note Type Note [...] crohn's, eczema. CONRAD BOYKIN [address], [place], [address], [place] [facility] 03/28/2019 22:34:20 OBGyn Episode No OBEpisode recorded.
--- OUTSIDE RECORDS SUMMARY | 2025-04-24 14:02 | XMS_ITS | Clinical Summary ---
Author Organization [facility] Address [address] [place] [address] Care Team Providers Care Biomedical Equipment Tech Name Role Phone Unavailable Primary Care Provider Unavailabl e Social History Tobacco Use Types Packs/Day Years Used Date Smoking Tobacco: Never Assessed Comments Unknown Sex and Gender Information Value Date Recorded Sex Assigned at Not on file Legal Sex Female 1:59 PM EDT Gender Identity Not on file Sexual Orientation Not on file Plan of Treatment Health Maintenance Due Date Last Done Comments DTaP/Tdap/Td Vaccines (1 - Tdap) 1962 Pneumococcal Vaccines 50+ (1 of 1 - PCV) 1993 Zoster (Shingles) Vaccine (1 of 2) 1993 RSV Vaccine 60 years and old er and Patients (1 - 1-dose 75+ series) 2018 COVID-19 Vaccine (2023-2 5 season) 2024 Hepatitis B Vaccines Aged Out No long er eligible based on patient's age to complete this topic
== END 2025-04-24 14:11 | disposition home or self-care (01) ==
LOC: HO.HPS 13:12
PROVIDERS: PCP Nurse Practitioner Family; Visit Provider Internal Medicine
DX: R05.9 Cough, unspecified (principal); J98.11 Atelectasis; J32.9 Chronic sinusitis, unspecified
CPT/HCPCS: 99213

== ENCOUNTER → 2025-04-24 13:12 | Outpatient (BNVA) | payer MEDICARE, SELFPAY | PROVIDERS: PCP Nurse Practitioner Family; Visit Provider Internal Medicine | DX: J32.9 Chronic sinusitis, unspecified (principal); J98.11 Atelectasis; R06.89 Other abnormalities of breathing; R05.9 Cough, unspecified; Z79.899 Other long term (current) drug therapy | CPT/HCPCS: 94640; 99212 ==

== ENCOUNTER 2025-05-15 13:50 | Outpatient (AMB) | payer MEDICARE, SELFPAY ==
--- OUTSIDE RECORDS SUMMARY | 2025-05-10 23:59 | XMS_ITS | Continuity of Care Document ---
Author Organization [facility] Address [address] [place] [address]- Care Team Providers Care Iron Launder Operator Name Role Phone Anaya Joanna DEL TORO Primary Care Physician Encounter [facility] [place] Date(s): 04/10/25 - 05/10/[address] [id number] Encounter Type: Triage Allergies, Adverse Reactions, [...] 07/04/17 Re corded influenza virus vaccine, inactivated 11/4/16 Give n influenza virus vaccine, inactivated 07/24/15 Give n influenza virus vaccine, inactivated 12/23/14 Give n influenza virus vaccine, inactivated 08/15/14 Angel Luis rded influenza virus vaccine, inactivated 3 07/10/14 Gi clyde influenza virus vaccine, inactivated 07/09/13 Give n influenza virus vaccine, inactivated 06/25/11 Give n SARS-CoV-2(COVID-19)mRNA-LNP vac(vcg009) 09/09/24 Recorded SARS-CoV-2(COVID-19)mRNA-LNP vac(onw057) 09/21/23 Recorded pneumococcal 20-valent conjugate vaccine 4 05/06/23 Given tetanus/diphtheria/pertussis, acel(Tdap) 12/12/22 Given [id number] 12y+ bivalent booster vax 08/01/22 Recorded SARS-CoV-2 mRNA ([id number]) vax 03/09/22 Recorded SARS-CoV-2 (COVID-19) mRNA BNT-162b2 [...] Toxoid Vaccine (oldterm) 10/17/96 Given 1Result Comment: [id number] 2Result Comment: [07/11/2017] makenna leahy 3Result Comment: [07/11/2014] [facility] 4Result Comment: [id number] 5Location History: [address] [phone] 6Result Comment: [11/04/2016] DOUBLE DOSE PER GI 7Result Comment: [11/04/2016] DOUBLE DOSE PER GI 8Result Comment: [03/07/2015] received here 9Admin Note: [facility] 10Admin Note: pt states administered at [facility] 11Admin Note: historical data Medications acetaminophen 325 mg oral capsule 2 capsule = 650 mg, By Mouth, 3 times a day, # 90 capsule, 4 Refills, Maintenance, 01/02/20 1:39:00 PM EDT, [facility], 157.48, cm, 12/17/19 13:10:00 EST, [...] hours, PRN wheezing cough, # 18 Gm, 1 Refills, Maintenance, 04/25/25 9:36:00 AM EDT, [facility] #[id number], 2 puffs Inhalation Every 6 hours,PRN:wheezing cough, 155,cm, 04/13/25 16:54:00 EDT, Height, 45, kg, 04/13/25 14:55:00 EDT, Dry Weight Start Date: 04/25/25 Status: Ordered Quantity: 18.0 Unit: g Repeat number: 2 Calcium / Vitamin D Combo Tablet 1 tablet, By Mouth, 2 times a day, 0 Refills, 12/13/05 2:17:58 PM EST Start Date: 12/13/05 Status: Ordered Repeat number: 1 carvedilol 12.5 mg oral tablet 12.5 mg, 1, tablet, By Mouth, 2 times a day, # 180 tablet, Refills 1, Tot. Refills 1, Maintenance, 04/24/25 10:19:00 AM EDT, Route to Pharmacy Electronically, [facility], 155, cm, 04/13/25 16:54:00 EDT, Height, 45, kg, 04/13/25 14:55:00 EDT, Dry Weight Start Date: 04/24/25 Status: Ordered Quantity: 180.0 Unit: tablet Repeat number: 2 [facility] By Mouth, Daily, 0 Refills, [...] 1 Refills, Maintenance, 12/20/24 11:40:00 AM EST, [place] #[id number], 155, cm, 12/20/24 11:39:00 EST, Height, 47.7, kg, 12/15/24 12:54:00 EST, Dry Weight Start Date: 12/20/24 Stop Date: 02/18/25 Status: Ordered Quantity: 16.0 Unit: g Repeat number: 2 indapamide 1.25 mg oral tablet 1 tablet, By Mouth, Daily in AM, # 90 tablet, 1 Refills, Maintenance, 12/20/24 11:43:00 AM EST, [facility] #[id number], 155, cm, 12/20/24 11:39:00 EST, Height, 47.7, kg, 12/15/24 12:54:00 EST, DryWeight Start Date: 12/20/24 Status: Ordered Quantity: 90.0 Unit: tablet Repeat number: 2 loperamide 2 mg oral capsule See Instructions, Take 1 capsule by mouth in the morning (30 minutes before eating) and at bedtime., # 60 capsule, Refills 1, Tot. Refills 1, Maintenance, 03/29/25 12:23:00 PM EDT, Instructions Replace Required Details, Route to Pharmacy Electronically, [facility] #[id number], Partial fill uponpatient request if the prescription [...] 8:58:00 AM EDT, Route to Pharmacy Electronically, [facility], Partial fill upon patient request if [...] Refills, Maintenance, 03/25/25 1:37:00 PM EDT, Capsule, [facility] #[id number], 1 capsule By Mouth Daily, 155, cm, [...] Team Personnel Name: Devi Hector RN Position: [facility] RN Member Role: Primary Care Nurse Name: Shobha Villasenor RN Position: [facility] VIJAY Nurse Member Role: Primary Care Nurse Name: Brittney Goldstein RN Position: [facility] RN Member Role: Primary Care Nurse Name: Celestina King RN Position: [facility] RN Member Role: Primary Care Nurse Name: Joanna Julien NP Position: [facility] PCO Associate Professional Member Role: PCP Address: [address] [place] [address]- Telecom: Name: Michelle Cline RN Position: [facility] MR W/ Merge Member Role: Primary Care Nurse Name: Susan Ventura RN Position: [facility] Onco RN Member Role: Primary Care Nurse Name: Lindsey Fletcher RN Position: [facility] RN Member Role: Primary Care Nurse Name: Kamila Murphy RN Position: [facility] RN Member Role: Primary Care Nurse Name: Emily Abdalla RN Position: [facility] RN Member Role: Primary Care Nurse Name: Sanna Barajas RN Position: [facility] RN Member Role: Primary Care Nurse Name: Lianet Mcfadden RN Position: [facility] VIJAY Nurse Member Role: Primary Care Nurse Name: Kenny Quinonez RN Position: [facility] RN Member Role: Primary Care Nurse Name: Maya Oliva RN Position: [facility] RN Member Role: Primary Care Nurse Name: Presley Gama RN Position: [facility] RN Member Role: Primary Care Nurse Care Team Related Persons Name: CLINTSHAILESH PARADA Name: CONCETTA PUENTES Name: RHEA PUENTES Insurance Providers Guarantor name: MAXIME PUENTES Health Plan Information #: 1 Payer: MEDICARE B Payer Identifier: Member Number: [id number] Group Number: Subscriber Identifier: [id number] Relationship to Subscriber: self Coverage Type: NA Coverage Verification Date: NA Telecom: NA Address: Health Plan Information #: 2 Payer: [facility] Payer Identifier: Member Number: [id number] Group Number: Subscriber Identifier: [id number] Relationship to Subscriber: self Coverage Type: MEDICARE Coverage Verification Date: Telecom: Address:
[2025-05-15 14:20] VITALS: BP 120/50; PULSE 71; O2SAT 96; BMI 17.3
--- NOTE | 2025-05-15 14:20 | MHC.OFFVIS ---
Vital Signs 05/15/25 14:20 Height 5 ft 1 in Weight 91 lb 7.869 oz BMI 17.3 BP 120/50 L Blood Pressure Location Lt brachial Position Sitting Pulse 71 Pulse Source Pulse Oximeter Pulse Oximetry (%) 96 Oxygen Delivery Method Room Air Intake Visit Reasons: cough Intake Note: pt is here for follow up and the cough is still there, What does she have she is wondering. after eating she coughs for 2 hours and spits up dark thick phelgm Warp Tying Machine Tender Required: No Allergies ANTIBIOTICS Adverse Reaction (Mild, Uncoded 05/15/25 14:50) THRUSH Medication List - Last Reconciled 05/15/25 by Jem Perrin MD acetaminophen (Tylenol Extra Strength) 500 mg PO Q6H PRN acyclovir 400 mg PO BID albuterol sulfate 90 mcg/actuation 2 puffs inhalation Q6H PRN calcium carbonate-vitamin D3 600 mg-10 mcg (400 unit) (Calcium 600 with Vitamin D3) tabs PO carvedilol 12.5 mg PO BID clopidogrel (Plavix) 75 mg PO DAILY cyanocobalamin (vitamin B-12) 1,000 mcg PO DAILY denosumab (Prolia) 60 mg subcut [id number] diclofenac sodium 1% (Arthritis Pain (diclofenac)) 2 grams topical QID fluticasone propionate 50 mcg/actuation 1 spray intranasal BID indapamide 1.25 mg PO QAM ipratropium-albuterol 0.5 mg-3 mg(2.5 mg base)/3 mL 3 mL inhalation Q6H PRN 30 days meclizine 12.5 mg PO BID-QID PRN pantoprazole 40 mg PO DAILY pravastatin 10 mg PO BEDTIME vedolizumab (Entyvio) 300 mg IV Q6W vedolizumab (Entyvio) 300 mg IV Q6W Do you need a note to return to daycare/school/sports/work: No HPI HPI cough: Details: MAXIME, 80 YEARS OLD 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 HER LAST CT SCAN OF THE CHEST IN OCTOBER 2024, HAD SHOWN BIBASILAR DENSITIES CONSIDERED TO BE DUE TO ATELECTASIS. AND A 6 MM PULMONARY NODULE. PATIENT WAS PRESCRIBED RISHI MAURICE T.I.D., FOR THE PURPOSES OF MOBILIZING SECRETIONS SO THAT SHE CAN EXPECTORATES MORE EFFECTIVELY. HOWEVER SHE HAS NOT BEEN ABLE TO USE THE NEBULIZER, CLAIMING THAT AFTER USING IT SHE GETS MORE COUGH WITH LOT OF MUCUS ( ACTUALLY THAT WAS THE PURPOSES OF USING THE NEBULIZED BD SOLUTION ) SHE HAS BEEN USING ALBUTEROL FOR THE BOUTS OF COUGH WHICH HELPS TO SOME EXTENT. SHE STATES THAT THE USE OF TESTS IN SYRUP ( ROBITUSSIN) 2 TSP NEEDED, GIVES HER MORE RELIEF FROM THE COUGH AND IT HELPS TO EXPECTORATES THE MUCUS OR EASILY. HER COUGH IS STIMULATED AFTER SHE EATS, AT THAT RAISES POSSIBILITY OF MICRO ASPIRATIONS. SHE WAS SUPPOSED TO HAVE A CT SCAN AFTER 6 MONTHS WHICH IS NOW SCHEDULED FOR THE END OF THIS WEEK. [facility] Medical History Atelectasis of both lungs Sinusitis Cough Social History Patient Tobacco Use Status: Never used Tobacco Review of Systems Const All systems reviewed & are unremarkable except as noted in HPI and below Eyes Reports no additional complaints ENT Reports nasal discharge (CHRONIC ) Card Denies chest pain, Reports rapid heart rate and Denies leg edema Resp Reports as per HPI GI Reports heartburn (CHRONIC GERD SYMPTOMS) Reports no additional complaints Musc Reports no additional complaints Skin/Breast Reports system reviewed and no additional complaints, except as documented Neuro Reports no additional complaints Psych Reports no additional complaints Endo Reports no additional complaints Jerry/Lymph Reports no additional complaints Physical Exam Vital Signs: Last Vital Signs Pulse 71 05/15/25 14:20 BP 120/50 L 05/15/25 14:20 Pulse Ox 96 05/15/25 14:20 Oxygen Delivery Method Room Air 05/15/25 14:20 BMI result Body Mass Index 17.3 Const Other: PATIENT IS OF A THIN BUILD , HAS THE SIGNIFICANT WEIGHT LOSS.. AND LOOKS WEAKER IN GENERAL HAD CONTINUED AND FREQUENT BOUTS OF COUGH DURING OFFICE VISIT. General: no acute distress, alert and awake Orientation/consciousness: patient oriented x3 HEENT Head: Yes normal to inspection General nose exam: No nasal polyps present and No nasal discharge present Face and sinus: Yes sinuses nontender Mouth: oropharynx normal Throat: Yes posterior oropharynx normal Eyes General: appearance normal, both eyes and all related structures Neck Neck: Yes normal visual inspection, Yes no lymphadenopathy, Yes trachea midline and Yes no JVD Thyroid: Thyroid normal Chest Chest palpation & inspection: normal inspection of the chest, normal palpation of entire chest wall and no tenderness Resp Other: PERCUSSION NOTE IS RESONANT. BREATH SOUNDS ARE ONLY SLIGHTLY DISTANT BUT. EQUAL ON BOTH SIDES THERE ARE A FEW CREPS OVER THE LT. BASE . Cardio Palpation: normal PMI Rate: regular rate Rhythm: regular rhythm Heart sounds: no gallops and no murmurs Peripheral pulses: Peripheral pulses 2+ throughout GI Palpation (GI): Soft to palpation, nontender, No hepatosplenomegaly present and no masses Auscultation: normal bowel sounds Back/Spine/Pelvis Thoracic/Lumbar Spine: thoracic and lumbar spine normal to inspection Skin General skin exam: no rashes or lesions noted Neuro General: patient oriented x3 and no focal motor deficits Cranial nerves: Yes CN's II-XII intact bilaterally Extrem General: Yes normal to inspection, Yes no clubbing, cyanosis or edema and Yes no calf tenderness Psych Appearance: grossly normal and well kempt Speech and movement: Normal speech and movement present Assessment & Plan Assessment & Plan (1) Cough: Comment: SHE HAS HAD CHRONIC COUGH, WITH FREQUENT FLARE UPS. HER PREVIOUS CT SCAN OF THE CHEST HAS NOT SHOWN ANY INTRINSIC LUNG DISEASE. SINUS X-RAYS ON HER LAST VISIT DID SHOW CHRONIC SINUSITIS. SHE RESPONDED WELL TO 2 WEEKS COURSE OF DOXYCYCLINE. SHE WAS PRESCRIBED NEBULIZER, AND ADVISED TO USE IPRATROPIUM-ALBUTEROL SOLUTION IN THE NEBULIZER 3 TIMES A DAY, TO HELP HER EXPECTORATE THE MUCUS. TODAY SHE DESCRIBES THAT SHE GETS MORE COUGH AFTER USING THE NEBULIZER, AND HAS HARD TIME TO EXPECTORATE THE MUCUS. THEN SHE ENDS UP USING ALBUTEROL WHICH ALSO DOES NOT HELP MUCH. SHE STATES THAT ROBITUSSIN 2 TSP HELPS TO BRING UP THE MUCUS AND EASE THE COUGH. Code(s): R05.9 - Cough, unspecified Category: Medical Plan: I ADVISED HER TO USE ONLY HALF OF THE SOLUTION BUT DUE USE NEBULIZER 3 TIMES A DAY. IN ADDITION I ADVISED THAT SHE CAN TAKE ROBITUSSIN SYRUP 2 TSP UP TO 3 TIMES A DAY. SHE CAN USE ALBUTEROL 2 PUFFS Q 6 HOURS P.R.N. FOR PERSISTENT COUGH. (2) Atelectasis of both lungs: Comment: SHE SEEMS TO HAVE PATCHY ATELECTASIS IN THE LEFT LINGULAR LOBE AND AT THE RIGHT BASE. ALSO HAS TREE IN BUD TYPE OF NODULAR INFILTRATES, PROBABLY SECONDARY TO BRONCHIECTASIS. Code(s): J98.11 - Atelectasis Category: Medical Plan: TREATMENT WRITTEN UNDER COUGH (3) Sinusitis: Comment: SHE HAS CHRONIC RHINO SINUSITIS, SHE DOES HAVE INTERMITTENT FLARE UPS OF SINUSITIS AND CAUSING COUGH Code(s): J32.9 - Chronic sinusitis, unspecified Category: Medical Plan: AT PRESENT SHE DOES NOT NEED TO USE ANY ANTIBIOTIC Plan * PATIENT IS GOING TO HAVE CT SCAN OF THE CHEST AND I WILL MAKE A POINT TO REVIEW THE FINDINGS Coding Level of Care Code Est Pt Level 3 (54448) Diagnoses Cough R05.9 Atelectasis of both lungs J98.11 Sinusitis J32.9
--- OUTSIDE RECORDS SUMMARY | 2025-05-15 14:30 | XMS_ITS | Patient Health Record ---
Author Organization [facility] Address [address] [place] [address] Care Team Providers Care Maintenance Pipefitter Name Role Phone Rose ZHAO, Kael Primary Care Provider Zay Abel Unavailable [phone] Allergies Allergen (clinical drug ingredient) Drug/Non Drug [...] Status W/U Status Risk Notes Problem Dermatitis (105002941) Dermatitis (692.9) Active confirmed Problem Disorder of joint of ankle and/or foot (767400914) Arthritis - Degenerative (719.97) Active confirmed Problem Pain in limb (32373471) Pain in Limb (729.5) Active confirmed Problem Pain in limb (43182136) Pain in Limb (729.5) Active confirmed Problem Paronychia (77073176) Paronychia (681.11) Active confirmed Problem Tinea pedis (7283586) Tinea Pedis (110.4) Active confirmed Problem Exostosis (26696191) Exostosis (726.91) Active confirmed Plan Of Treatment Pending Test Test Name Order Date X ray : Foot, right 3V 06/29/2012 [id number] Plate 05/31/2012 [id number] 06/17/2011 87524- Debride <25 sq cm 07/15/2011 98769- Debride <25 sq cm 09/06/2011 55568- Debride <25 sq cm 12/15/2011 37903- Debride <25 sq cm 05/31/2012 51161- Debride <25 sq cm 06/15/2012 94475- Debride <25 sq cm 10/18/2012 18943 I&D ABSCESS- SIMPLE,SINGLE 012 Insurance Providers Payer Name Payer Address Payer Phone Subscriber Number Group Number Insured Name Patient Relationship to Insured Coverage Start Date Coverage End Date Medicare National [employer] [address] [facility] [place] [address] [id number] Ama Hua Self - patient is the insured 8 [employer] Secondary to Medicare [address] [place] [address] [id number] Ama Hua Self - patient is the insured Medical (General) History Medical History History ICD Code CAD (cholesterol) warts sinus conditions psoriasis osteoporosis keloids hypertension hernia gall bladder problems chicken pox diverticulitis Surgical History Surgery Date(Month/Year) cholecystectomy 1994 hysterectomy 2006 rectal and sphincter repair 2006
--- OUTSIDE RECORDS SUMMARY | 2025-05-15 14:30 | XMS_ITS | Clinical Summary ---
Author Organization [facility] Address [address] [place] [address] Care Team Providers Care Diamond Blender Name Role Phone Unavailable Primary Care Provider [...]
== END 2025-05-15 15:05 | disposition home or self-care (01) ==
LOC: HO.HPS 13:50
PROVIDERS: PCP Nurse Practitioner Family; Visit Provider Internal Medicine
DX: R05.9 Cough, unspecified (principal); J98.11 Atelectasis; J32.9 Chronic sinusitis, unspecified
CPT/HCPCS: 99213

== ENCOUNTER → 2025-05-15 13:50 | Outpatient (BNVA) | payer MEDICARE, SELFPAY | PROVIDERS: PCP Nurse Practitioner Family; Visit Provider Internal Medicine | DX: J98.11 Atelectasis (principal); R05.9 Cough, unspecified; J32.9 Chronic sinusitis, unspecified | CPT/HCPCS: 99212 ==

== ENCOUNTER 2025-06-26 11:00 | Outpatient (AMB) | payer MEDICARE, SELFPAY ==
--- OUTSIDE RECORDS SUMMARY | 2025-06-22 23:59 | XMS_ITS | Continuity of Care Document ---
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 Phone Anaya KATEY, Joanna Lafleur Primary Care Physician [phone] [id number] Date(s): 05/23/25 - 06/22/25 [facility] [place], [facility] Adult [address] [place] [address]- Encounter Type: Triage Allergies, Adverse Reactions, Alerts [...] virus vaccine, inactivated 06/25/11 Give n SARS-CoV-2(COVID-19)mRNA-LNP vac([id number]) 09/09/24 Recorded SARS-CoV-2(COVID-19)mRNA-LNP vac([id number]) 09/21/23 Recorded pneumococcal 20-valent conjugate vaccine 4 05/06/23 Given tetanus/diphtheria/pertussis, acel(Tdap) 12/12/22 Given [id number] 12y+ bivalent booster vax 08/01/22 Recorded SARS-CoV-2 mRNA (nidiska-ciop-vpajh) vax 03/09/22 Recorded SARS-CoV-2 (COVID-19) mRNA BNT-162b2 [...] Toxoid Vaccine (oldterm) 10/17/96 Given 1Result Comment: [id number] 2Result Comment: [07/11/2017] makenna LYNN 3Result Comment: [07/11/2014] [facility] 4Result Comment: [id number] 5Location History: [facility] COL[facility]N [facility] [id number] 6Result Comment: [11/04/2016] DOUBLE DOSE PER GI [...] Maintenance, 01/02/20 1:39:00 PM EDT, [facility], 157.48, cm, 12/17/19 13:10:00 EST, Height, 53.5, kg, 02/02/19 14:21:00 EDT, Dry Weight Start Date: 01/02/20 Status: Ordered Medication Dispense Status: Completed Quantity: 90.0 Unit: capsule Total Allowed Fills: 5 Fills Dispensed: 0 Acyclovir 400 mg, By Mouth, 2 times a day, Maintenance, 03/04/21 1:16:00 PM EDT Start Date: 03/04/21 Status: Ordered Medication Dispense Status: Completed Total Allowed Fills: 1 Fills Dispensed: 0 Albuterol (Eqv-ProAir HFA) 90 mcg/inh inhalation aerosol 2 puffs, Inhalation, Every 6 hours, PRN wheezing cough, # 18 Gm, 1 Refills, Maintenance, 04/25/25 9:36:00 AM EDT, [facility] #[id number], 2 puffs Inhalation Every 6 hours,PRN:wheezing cough, 155,cm, 04/13/25 16:54:00 EDT, Height, 45, kg, 04/13/25 14:55:00 EDT, Dry Weight Start Date: 04/25/25 Status: Ordered Medication Dispense Status: Completed Quantity: 18.0 Unit: g Total Allowed Fills: 2 Fills Dispensed: 0 Calcium / Vitamin D Combo Tablet 1 tablet, By Mouth, 2 times a day, 0 Refills, 12/13/05 2:17:58 PM EST Start Date: 12/13/05 Status: Ordered Medication Dispense Status: Completed Total Allowed Fills: 1 Fills Dispensed: 0 carvedilol 12.5 mg oral tablet 12.5 mg, 1, tablet, By Mouth, 2 times a day, # 180 tablet, Refills 1, Tot. Refills 1, Maintenance, 04/24/25 10:19:00 AM EDT, Route to Pharmacy Electronically, [facility], 155, cm, 04/13/25 16:54:00 EDT, Height, 45, kg, 04/13/25 14:55:00 EDT, Dry Weight Start Date: 04/24/25 Status: Ordered Medication Dispense Status: Completed Quantity: 180.0 Unit: tablet Total Allowed Fills: 2 Fills Dispensed: 0 [facility] By Mouth, Daily, 0 Refills, Maintenance, 06/15/24 2:14:00 PM EDT, Partial fill upon patient request if the prescription is for a schedule II opioid drug. Start Date: 06/15/24 Status: Ordered Medication Dispense Status: Completed Total Allowed Fills: 1 Fills Dispensed: 0 clopidogrel 75 mg oral tablet 1, tablet, By Mouth, Daily, # 90 tablet, Refills 1, Maintenance, 01/01/25 9:12:00 AM EDT, Route to Pharmacy Electronically, [facility], 155, cm, 12/20/24 11:39:00 EST, Height, 47.7, kg, 12/15/24 12:54:00 EST, Dry Weight Start Date: 01/01/25 Status: Ordered Medication Dispense Status: Completed Quantity: 90.0 Unit: tablet Total Allowed Fills: 1 Fills Dispensed: 0 diclofenac 1% topical gel 1 application, Topically, [...] Dry Weight Start Date: 12/31/21 Status: Ordered Medication Dispense Status: Completed Quantity: 100.0 Unit: g Total Allowed Fills: 1 Fills Dispensed: 0 Entyvio = 300 mg, IV Infusion, Every 6 weeks, 0 Refills, Maintenance, 01/09/18 11:14:40 AM EDT Start Date: 01/09/18 Status: Ordered Medication Dispense Status: Completed Total Allowed Fills: 1 Fills Dispensed: 0 estradiol 0.1 mg/g vaginal cream = 1 [...] Dry Weight Start Date: 11/29/23 Status: Ordered Medication Dispense Status: Completed Quantity: 42.5 Unit: g Total Allowed Fills: 12 Fills Dispensed: 0 Flonase Allergy Relief 50 mcg/inh nasal spray 1 sprays = 50 mcg, Nares, Both, 2 times a day, shake well before using, # 16 Gm, 1 Refills, Maintenance, 12/20/24 11:40:00 AM EST, [place], [facility] #[id number], 155, cm, 12/20/24 11:39:00 EST, Height, 47.7, kg, 12/15/24 12:54:00 EST, Dry Weight Start Date: 12/20/24 Stop Date: 02/18/25 Status: Ordered Medication Dispense Status: Completed Quantity: 16.0 Unit: g Total Allowed Fills: 2 Fills Dispensed: 0 indapamide 1.25 mg oral tablet 1 tablet, By Mouth, Daily in AM, # 90 tablet, 1 Refills, Maintenance, 12/20/24 11:43:00 AM EST, [facility] #[id number], 155, cm, 12/20/24 11:39:00 EST, Height, 47.7, kg, 12/15/24 12:54:00 EST, DryWeight Start Date: 12/20/24 Status: Ordered Medication Dispense Status: Completed Quantity: 90.0 Unit: tablet Total Allowed Fills: 2 Fills Dispensed: 0 ipratropium 500 mcg/2.5 mL inhalation solution 125 mcg, 0.625, mL, Inhalation, 3 times a day, # 150 mL, Refills 0, Maintenance, 05/25/25 12:55:00 PMEDT, Solution Start Date: 05/25/25 Status: Ordered Medication Dispense Status: Completed Quantity: 150.0 Unit: mL Total Allowed Fills: 1 Fills Dispensed: 0 Iron Iron, 0 Refills, Maintenance, 06/10/25 10:43:00 AM EDT Start Date: 06/10/25 Status: Ordered Medication Dispense Status: Completed Total Allowed Fills: 1 Fills Dispensed: 0 loperamide 2 mg oral capsule See Instructions, Take 1 capsule by mouth in the morning (30 minutes before eating) and at bedtime., # 60 capsule, Refills 1, Tot. Refills 1, Maintenance, 03/29/25 12:23:00 PM EDT, Instructions Replace Required Details, Route to Pharmacy Electronically, [facility] #[id number], Partial fill uponpatient request if the prescription is for a schedule II opioid drug., 155, cm, 03/28/25 10:20:00 EDT, Height, 43, kg, 03/16/25 6:53:00 EDT, Dry Weight Start Date: 03/29/25 Status: Ordered Medication Dispense Status: Completed Quantity: 60.0 Unit: capsule Total Allowed Fills: 2 Fills Dispensed: 0 loperamide 2 mg oral capsule 4 mg, 2, capsule, By Mouth, Once, Refills 0, Maintenance, 05/25/25 12:56:00 PM EDT, Partial fill uponpatient request if the prescription is for a schedule II opioid drug. Start Date: 05/25/25 Status: Ordered Medication Dispense Status: Completed Total Allowed Fills: 1 Fills Dispensed: 0 loperamide 2 mg oral capsule 2 mg, 1, capsule, By Mouth, 2 times a day, Take 1 capsule 30 minutes before breakfast and at bedtime., # 60 capsule, Refills 3, Tot. Refills 3, Maintenance, 05/17/25 5:04:00 PM EDT, Route to Pharmacy Electronically, [facility], Partial fill upon patient request if the prescription is for a schedule II opioid drug., 155, cm, 05/17/25 11:46:00 EDT, Height, 45, kg, 04/13/25 14:55:00 EDT, Dry Weight Start Date: 05/17/25 Status: Ordered Medication Dispense Status: Completed Quantity: 60.0 Unit: capsule Total Allowed Fills: 4 Fills Dispensed: 0 Nebulizer/Compressor Maintenance, 05/25/25 12:54:00 PM EDT, Supply Start Date: 05/25/25 Status: Ordered Medication Dispense Status: Completed Total Allowed Fills: 1 Fills Dispensed: 0 pantoprazole 40 mg oral delayed release tablet 1 tablet = 40 mg, By Mouth, Daily, for 90 days, # 90 tablet, 3 Refills, Hard Stop 12/19/25 3:14:00 PMEST, 12/24/24 3:14:00 PM EDT, 155, cm, 12/20/24 11:39:00 EST, Height, 47.7, kg, 12/15/24 12:54:00 EST, Dry Weight Start Date: 12/24/24 Stop Date: 12/19/25 Status: Ordered Medication Dispense Status: Completed Quantity: 90.0 Unit: tablet Total Allowed Fills: 4 Fills Dispensed: 0 pravastatin 10 mg oral tablet 1 tablet, By Mouth, Daily at bedtime, # 90 tablet, 1 Refills, Maintenance, 02/21/25 2:16:00 PM EDT, [facility], 155, cm, 01/29/25 9:11:00 EDT, Height, 43.5, kg, 02/09/25 13:01:00 EDT, Dry Weight Start Date: 02/21/25 Status: Ordered Medication Dispense Status: Completed Quantity: 90.0 Unit: tablet Total Allowed Fills: 1 Fills Dispensed: 0 prednisolone ophthalmic acetate 1% suspension 1 drops, Eyes, Both, Daily, # 5 mL, 0 Refills, Maintenance, 08/17/21 2:36:00 PM EDT, Ophth Suspension, Partial fill upon patient request if the prescription is for a schedule II opioid drug. Start Date: 08/17/21 Stop Date: 08/27/21 Status: Ordered Medication Dispense Status: Completed Quantity: 5.0 Unit: mL Total Allowed Fills: 1 Fills Dispensed: 0 Probiotic Formula (Bacillus Coagulans) oral capsule 1 capsule, By Mouth, Daily, # 30 capsule, 0 Refills, Maintenance, 03/25/25 1:37:00 PM EDT, Capsule, [facility] #[id number], 1 capsule By Mouth Daily, 155, cm, 03/25/25 13:03:00 EDT, Height, 43, kg, 03/16/25 6:53:00 EDT, Dry Weight Start Date: 03/25/25 Status: Ordered Medication Dispense Status: Completed Quantity: 30.0 Unit: capsule Total Allowed Fills: 1 Fills Dispensed: 0 Prolia 60 mg/mL subcutaneous solution 1 mL = 60 mg, Subcutaneous Injection, Every 6 months, # 1 mL, 0 Refills, Maintenance, 10/23/19 1:28:00 PM EST, Solution Start Date: 10/23/19 Status: Ordered Medication Dispense Status: Completed Quantity: 1.0 Unit: mL Total Allowed Fills: 1 Fills Dispensed: 0 Vitamin B12 1000 mcg oral tablet 1 tablet = 1,000 mcg, By Mouth, Daily, # 90 tablet, 1 Refills, Maintenance, 02/29/24 12:41:00 PM EDT, [facility], 155, cm, 02/25/24 14:25:00 EDT, Height, 53.7, kg, 02/25/24 12:50:00 EDT, Dry Weight Start Date: 02/29/24 Stop Date: 08/27/24 Status: Ordered Medication Dispense Status: Completed Quantity: 90.0 Unit: tablet Total Allowed Fills: 2 Fills Dispensed: 0 ZyrTEC 10 mg oral tablet 1 tablet = 10 mg, By Mouth, Daily, 0 Refills, Maintenance, 05/25/25 12:55:00 PM EDT, Partial fill upon patient request if the prescription is for a schedule II opioid drug. Start Date: 05/25/25 Status: Ordered Medication Dispense Status: Completed Total Allowed Fills: 1 Fills Dispensed: 0 Problem List Condition Confirmation Course Effective Dates [...] 15, 16 Confirmed Active Rosacea Confirmed Active Underweight Confirmed Active Urethritis Confirmed Active Vertigo Confirmed [...] user in household: Yes entered on: 08/21/14 Sexual Orientation Self described orien tation: ; Straight or heterosexual Gender Identity Gender identity: Sex Sex Representation Female (finding) Patient Care team information Care Team Personnel Name: Devi Hector RN Position: [facility] RN Member Role: Primary Care Nurse Name: Shobha Villasenor RN Position: [facility] AMB Nurse Member Role: Primary Care Nurse Name: Brittney Goldstein RN Position: [facility] RN Member Role: Primary Care Nurse Name: Celestina King RN Position: [facility] RN Member Role: Primary Care Nurse Name: Joanna Julien NP Position: [facility] PCO Associate Professional Member Role: PCP Address: [address] [place] [id number]- Telecom: Name: Michelle Cline RN Position: [facility] MR W/ Merge Member Role: Primary Care Nurse Name: Susan Ventura RN Position: [facility] Onco RN Member Role: Primary Care Nurse Name: Lindsey Fletcher RN Position: [facility] RN Member Role: Primary Care Nurse Name: Kamila Murphy RN Position: [facility] RN Member Role: Primary Care Nurse Name: Sanna Barajas RN Position: [facility] RN Member Role: Primary Care Nurse Name: Lianet Mcfadden RN Position: [facility] AMB Nurse Member Role: Primary Care Nurse Name: Kenny Quinonez RN Position: [facility] RN Member Role: Primary Care Nurse Name: Maya Oliva RN Position: [facility] RN Member Role: Primary Care Nurse Name: Emily Russell RN Position: [facility] RN Member Role: Primary Care Nurse Name: Presley Gama RN Position: [facility] RN Member Role: Primary Care Nurse Care Team Related Persons Name: SHAILESH DAMICO Name: CONCETTA PUENTES Name: RHEA PUENTES Insurance Providers Guarantor name: MAXIME PUENTES Health Plan Information #: 1 Payer: MEDICARE B Payer Identifier: CARIN Member Number: [id number] Group Number: [id number] Subscriber Identifier: CARIN Relationship to Subscriber: self Coverage Type: NA Coverage Verification Date: NA Telecom: NA Address: [facility] Information #: 2 Payer: [employer] SECONDARY ONLY Payer Identifier: CARIN Member Number: [id number] Group Number: [id number] Subscriber Identifier: NA Relationship to Subscriber: self Coverage Type: MEDICARE Coverage Verification Date: NA Telecom: CARIN Address: NA
[2025-06-26 11:13] VITALS: BP 137/62; PULSE 72; O2SAT 97; BMI 17.6
--- NOTE | 2025-06-26 11:13 | A.OFFVIS_ITS ---
Vital Signs 06/26/25 11:13 Height 5 ft 1 in Weight 93 lb BMI 17.6 BP 137/62 Blood Pressure Location Rt brachial Position Sitting Pulse 72 Pulse Source Pulse Oximeter Pulse Oximetry (%) 97 Oxygen Delivery Method Room Air Intake Visit Reasons: Cough Intake Note: Patient is here to follow up on cough Allergies ANTIBIOTICS Adverse Reaction (Mild, Uncoded 06/26/25 11:53) THRUSH Medication List - Last Reconciled 06/26/25 by Jem Perrin MD acetaminophen (Tylenol Extra Strength) 500 mg PO Q6H PRN acyclovir 400 mg PO BID albuterol sulfate 90 mcg/actuation 2 puffs inhalation Q6H PRN calcium carbonate-vitamin D3 600 mg-10 mcg (400 unit) (Calcium 600 with Vitamin D3) tabs PO carvedilol 12.5 mg PO BID clopidogrel (Plavix) 75 mg PO DAILY cyanocobalamin (vitamin B-12) 1,000 mcg PO DAILY denosumab (Prolia) 60 mg subcut [id number] diclofenac sodium 1% (Arthritis Pain (diclofenac)) 2 grams topical QID fluticasone propionate 50 mcg/actuation 1 spray intranasal BID indapamide 1.25 mg PO QAM ipratropium-albuterol 0.5 mg-3 mg(2.5 mg base)/3 mL 3 mL inhalation Q6H PRN 30 days meclizine 12.5 mg PO BID-QID PRN pantoprazole 40 mg PO DAILY pravastatin 10 mg PO BEDTIME vedolizumab (Entyvio) 300 mg IV Q6W vedolizumab (Entyvio) 300 mg IV Q6W Do you need a note to return to daycare/school/sports/work: No HPI Comments Details: MAXIME, IS 80 YEARS OLD FEMALE OF A THIN BUILD, NONSMOKER, HAS CHRONIC RHINOSINUSITIS, AND ALSO CHRONIC BRONCHIECTASIS IN THE LOWER LOBES OF THE LUNG. SHE HAS TENDENCY TO GET RECURRENT RESPIRATORY INFECTIONS ESPECIALLY IN THE SINUSES, AND MORE RECENTLY SHE HAD BILATERAL PNEUMONIA ON TOP OF BRONCHIECTASIS. WITH THE USE OF A COURSE OF DOXYCYCLINE AND HER MEDICATIONS PRESCRIBED SHE HAS HIM IMPROVED GREATLY BUT STILL HAS RESIDUAL COUGH WITH MUCUS PRODUCTION. SHE DOES NOT GET ANY FEVER OR CHILLS. DOES NOT HAVE ANY SIGNIFICANT SHORTNESS OF BREATH. HER CURRENT CT SCAN [facility] CHEST AT [facility] ON 05/17/2025 SHOWED THAT THE CONSOLIDATIONS OVER THE BASILAR AREAS HAVE RESOLVED, BUT SHE STILL HAS BRONCHIAL THICKENING WITH MUCOUS RETENTION AND TREE IN BUD APPEARANCE IN THE LOWER LOBES SUGGESTING BRONCHIECTASIS. [facility] Medical History (Updated 06/26/25 @ 12:10 by Jem Perrin MD) Bronchiectasis Atelectasis of both lungs Sinusitis Cough Social History Patient Tobacco Use Status: Never used Tobacco Review of Systems Const All systems reviewed & are unremarkable except as noted in HPI and below Eyes Reports no additional complaints ENT Reports nasal discharge (CHRONIC ) Card Denies chest pain, Reports rapid heart rate and Denies leg edema Resp Reports as per HPI GI Reports heartburn (CHRONIC GERD SYMPTOMS) Reports no additional complaints Musc Reports no additional complaints Skin/Breast Reports system reviewed and no additional complaints, except as documented Neuro Reports no additional complaints Psych Reports no additional complaints Endo Reports no additional complaints Jerry/Lymph Reports no additional complaints Physical Exam Vital Signs: Last Vital Signs Pulse 72 06/26/25 11:13 BP 137/62 06/26/25 11:13 Pulse Ox 97 06/26/25 11:13 Oxygen Delivery Method Room Air 06/26/25 11:13 BMI result Body Mass Index 17.6 Const Other: PATIENT IS OF A THIN BUILD , HAS THE SIGNIFICANT WEIGHT LOSS.. AND LOOKS WEAKER IN GENERAL HAD CONTINUED AND FREQUENT BOUTS OF COUGH DURING OFFICE VISIT. General: no acute distress, alert and awake Orientation/consciousness: patient oriented x3 HEENT Head: Yes normal to inspection General nose exam: No nasal polyps present and No nasal discharge present Face and sinus: Yes sinuses nontender Mouth: oropharynx normal Throat: Yes posterior oropharynx normal Eyes General: appearance normal, both eyes and all related structures Neck Neck: Yes normal visual inspection, Yes no lymphadenopathy, Yes trachea midline and Yes no JVD Thyroid: Thyroid normal Chest Chest palpation & inspection: normal inspection of the chest, normal palpation of entire chest wall and no tenderness Resp Other: PERCUSSION NOTE IS RESONANT. BREATH SOUNDS ARE ONLY SLIGHTLY DISTANT BUT. EQUAL ON BOTH SIDES THERE ARE A FEW CREPS OVER THE LT. BASE . Cardio Palpation: normal PMI Rate: regular rate Rhythm: regular rhythm Heart sounds: no gallops and no murmurs Peripheral pulses: Peripheral pulses 2+ throughout GI Palpation (GI): Soft to palpation, nontender, No hepatosplenomegaly present and no masses Auscultation: normal bowel sounds Back/Spine/Pelvis Thoracic/Lumbar Spine: thoracic and lumbar spine normal to inspection Skin General skin exam: no rashes or lesions noted Neuro General: patient oriented x3 and no focal motor deficits Cranial nerves: Yes CN's II-XII intact bilaterally Extrem General: Yes normal to inspection, Yes no clubbing, cyanosis or edema and Yes no calf tenderness Psych Appearance: grossly normal and well kempt Speech and movement: Normal speech and movement present Results Reviewed Results Reviewed: CT SCAN OF CHEST 05/17/25 IMPROVED. CONSOLIDATIVE OPACITIES IN BASILAR AREAS ALMOST RESOLVED. SHE HAS FINDINGS OF CHRONIC BRONCHIAL THICKENING AND BRONCHIECTASIS ESPECIALLY IN THE LOWER LOBES. Assessment & Plan Assessment & Plan (1) Sinusitis: Comment: SHE HAS CHRONIC RHINO SINUSITIS, SHE DOES HAVE INTERMITTENT FLARE UPS OF SINUSITIS AND CAUSING COUGH Code(s): J32.9 - Chronic sinusitis, unspecified Category: Medical Plan: CONTINUE TO USE FLONASE-52 SPRAY IN EACH NOSTRIL DAILY. SHE MAY NEED INTERMITTENT COURSES OF DOXYCYCLINE AN EQUIVALENT ANTIBIOTIC WENT HER SYMPTOMS GET WORSE. (2) Atelectasis of both lungs: Comment: SHE SEEMS TO HAVE PATCHY ATELECTASIS IN THE LEFT LINGULAR LOBE AND AT THE RIGHT BASE. ALSO HAS TREE IN BUD TYPE OF NODULAR INFILTRATES, PROBABLY SECONDARY TO BRONCHIECTASIS. HER CURRENT CT SCAN DOES SHOW SIGNIFICANT IMPROVEMENT, THE CONSOLIDATIVE [place]. ALMOST RESOLVED SHE DOES HAVE RESIDUAL FINDINGS OF CHRONIC BRONCHIECTASIS IN THE LOWER LOBES. Code(s): J98.11 - Atelectasis Category: Medical Plan: CONTINUE USING IPRATROPIUM-ALBUTEROL SOLUTION IN THE NEBULIZER Q 6 HOURS P.R.N.. ALTERNATIVELY CAN USE ALBUTEROL HFA 2 PUFFS Q 6 HOURS P.R.N. (3) Bronchiectasis: Comment: SHE DOES HAVE RADIOLOGIC FINDINGS OF CHRONIC BRONCHIECTASIS. I EXPLAINED TO HER THAT SHE IS PRONE TO HAVE CHRONIC COUGH AND MUCUS PRODUCTION. SHE WOULD ALSO BE PRONE TO HAVE RECURRENT RESPIRATORY INFECTIONS. Code(s): J47.9 - Bronchiectasis, uncomplicated Category: Medical Plan: CNOT. TREATMENT UNDER ATELECTASIS. OK TO USE ROBITUSSIN 2 TSP T.I.D. Coding Level of Care Code Est Pt Level 3 (59512) Diagnoses Sinusitis J32.9 Atelectasis of both lungs J98.11 Bronchiectasis J47.9
--- OUTSIDE RECORDS SUMMARY | 2025-06-26 14:02 | XMS_ITS | Clinical Summary ---
Author Organization [facility] Address [address] [place] [address] Care Team Providers Care Assistant Accounting Manager Name Role Phone Unavailable Primary Care Provider Unavailabl e Social History Tobacco Use Types Packs/Day Years Used Date Smoking Tobacco: Never Assessed Comments Unknown Sex and Gender Information Value Date Recorded Sex Assigned at Not on file Legal Sex Female 1:59 PM EDT Gender Identity Not on file Sexual Orientation Not on file Plan of Treatment Health Maintenance Due Date Last Done Comments Advance Care Planning 1945 DTaP/Tdap/Td Vaccines (1 - Tdap) 1962 Pneumococcal Vaccines 50+ (1 of 1 - PCV) 1993 Zoster (Shingles) Vaccine (1 of 2) 1993 RSV Vaccine 60 years and old er and Patients (1 - 1-dose 75+ series) 2018 COVID-19 Vaccine ( - 2023-2 5 season) 2025 Hepatitis B Vaccines Aged Out No long er eligible based on patient's age to complete this topic
== END 2025-06-26 11:48 | disposition home or self-care (01) ==
LOC: HO.HPS 11:01
PROVIDERS: PCP Nurse Practitioner Family; Visit Provider Internal Medicine
DX: J32.9 Chronic sinusitis, unspecified (principal); J98.11 Atelectasis; J47.9 Bronchiectasis, uncomplicated
CPT/HCPCS: 99213

== ENCOUNTER → 2025-06-26 11:00 | Outpatient (BNVA) | payer MEDICARE, SELFPAY | PROVIDERS: PCP Nurse Practitioner Family; Visit Provider Internal Medicine | DX: J32.9 Chronic sinusitis, unspecified (principal); J98.11 Atelectasis; J47.9 Bronchiectasis, uncomplicated | CPT/HCPCS: 99212 ==